=== PATIENT | male | born 1945 | race Caucasian/White ===

== ENCOUNTER 2017-07-04 12:45 | Inpatient (IN) ==
[2017-07-04] MEDS ORDERED: 0.9 % Sodium Chloride 1,000 ML IVC ONE (14:17)
[2017-07-04] MEDS ORDERED: *HR* LORazepam 2 MG/ML VIAL IVP ONE ×2 (14:17→16:18)
[2017-07-04 14:36] LABS: Basophils # 0.1 K/mcL (0.0-0.2); Basophils % 0.6 %; Eosinophils # 0.1 K/mcL (0.0-0.6); Eosinophils % 0.6 %; Hematocrit 39.1 % (37.5-50.1); Lymphocytes % 10.3 %; Mean Corpuscular HGB Conc 33.2 g/dL (31.6-35.5); Mean Corpuscular Hemoglobin 27.9 pg (28.0-33.3); Mean Corpuscular Volume 83.9 fL (83.0-100.0); Mean Platelet Volume 9.2 fL (9.4-12.4); Monocytes # 0.6 K/mcL (0.0-1.3); Monocytes % 6.6 %; Neutrophils # 7.5 K/mcL (1.6-8.9); Platelet Count 250 K/mcL (140-400); Red Blood Count 4.66 M/mcL (4.19-5.50); Red Cell Distribution Width 12.8 % (11.5-14.5); Segmented Neutrophils % 80.9 %
[2017-07-04 14:49] LABS: Calcium 9.9 mg/dL (8.6-10.8)
[2017-07-04 14:50] LABS: Acetaminophen < 1.0 mcg/mL (10-30); Ethanol < 10 mg/dL (0-10); Salicylate < 5.0 mg/dL (15-30)
[2017-07-04 15:42] LABS: Bilirubin,Urine Negative (Negative); Blood,Urine Moderate (Negative); Clarity,Urine Cloudy (Clear); Color,Urine Yellow (Yellow); Glucose,Urine (UA) >=1000 mg/dL (Normal); Ketones,Urine Negative (Negative); Leukocyte Esterase,Urine Small (Negative); Nitrite,Urine Negative (Negative); Protein,Urine >=300 mg/dL (Neg-Trace); Urobilinogen,Urine Normal (Normal)
[2017-07-04 15:43] LABS: Bacteria,Urine Many per hpf (None-Few); Hyaline Casts,Urine None Seen per lpf (None-Few); RBC,Urine 15-30 per hpf (0-3); Squamous Epithelial Cell,Urine Moderate per lpf (None-Few); WBC,Urine TNTC per hpf (0-3)
[2017-07-04 15:48] LABS: Amphetamine Screen,Urine Negative ng/mL (Cutoff=1000); Barbiturate Screen,Urine Negative ng/mL (Cutoff=200); Benzodiazepines Screen,Urine Negative ng/mL (Cutoff=200); Cannabinoid Screen,Urine Negative ng/mL (Cutoff = 50); Cocaine Screen,Urine Negative ng/mL (Cutoff= 300); Opiate Screen,Urine Negative ng/mL (Cutoff=300); Phencyclidine Screen,Urine Negative ng/mL (Cutoff=25)
--- NOTE | 2017-07-04 17:15 | Emergency Department Note ---
Disposition Clinical Impression: Delirium Hypertension Qualifiers: Hypertension type: essential hypertension Qualified Code(s): I10 - Essential ( primary) hypertension Acute on chronic kidney failure Qualifiers: Acute renal failure type: unspecified Chronic kidney disease stage: unspecified stage Qualified Code(s): N17.9 - Acute kidney failure, unspecified Disposition: Admitted As Inpatient Altered Mental Status HPI - General Chief Complaint: ED Altered Mental Status Stated Complaint: AMS Time Seen by Provider: 07/04/17 13:00 Source: patient, family Limitations: no limitations Vital Signs Reviewed: Yes - History of Present Illness HPI Narrative: Patient is a 71-year-old male past medical history of schizophrenia and diabetes presented to the ED today due to the daughter's concern for worsening dementia. Patient states that there is nothing wrong with him and his healthy. Patient's daughter states that when she picked him up, she was wearing the same clothes for the last 6 months. His house is filled with black mold. She states that he is not taking care of himself and he is not eating. She has had to clean out maggots and that the food that he has still in his house is from 20 years ago when his . She has been trying to bring him into the hospital for weeks. [employer] and the agronomy supervisor involved and Adult Protective Services. She says that he has lost 100 pounds in the last 6-8 months. She is afraid that he is going to kill someone and he does own guns as he has become more paranoid. Patient's neighbors have been calling her and voicing their concern and says that he is falling and using 2 canes. The only medication he takes is aspirin. When the patient is asked questions, he becomes highly agitated and says that I have asked him that same question 10 times. He knows where he is at but does not know the year quickly states that he was joking when he gets an answer wrong. When asked about the ulcer on his foot patient states that he has had that for years. - Related Data Home Medications Medication Instructions Recorded Confirmed No Known Home Drugs 07/04/17 07/04/17 Allergies Allergy/AdvReac Type Severity Reaction Status Date / Time No Known Allergies Allergy Verified 07/04/17 12:54 Review of Systems: ROS: constitutional: admits to falls, Denies fever, chills, weakness, dizziness HEENT: denies Headaches, changes in vision Resp: denies shortness of breath, coughing CV: Denies chest pain, lower extremity edema GI: Denies nausea, vomiting, diarrhea, constipation, hematochezia, abdominal pain Skin: Denies rashes, new lesions All systems ED: reviewed and negative except as stated. Review of Systems: As Per HPI Past Medical History - Past Medical History Medical history: Reports: diabetes, hyperlipidemia, hypertension - Social History Smoking Status: Current every day smoker Alcohol use: Reports: none Drug use: Reports: none Physical Exam Constitutional: Alert, highly aggitated, diffuse muscle atrophy Head: Normocephalic, atraumatic, normal contour and symmetric, no masses, lesions or scars Heart: Normal, regular rate and rhythm, no murmurs EENT:PERRL, EOMI but R eye is slighlty deviated inferior and lateral,poor dentition and dry mucous membranes Lungs: crackles bilaterally, Clear to auscultation, no wheezes, rales, or rhonchi Abdomen: increase brown pigmentation in patches on abdomen, Soft, nondistended, nontender, and no masses palpable, bowel sounds present and normal, no guarding or rigidity. Extremities: onychomycosis, ulcer on R foot lateral near base of first digit subcutaneous tissue visualized, No clubbing, cyanosis, or edema, radial pulse +2 /4, capillary refill <2sec. Skin: scaley and flakie skin diffusely, Skin warm and dry, no lesions, no rashes , no jaundice Neurologic: Cranial nerves II through XII intact, no focal deficits, strength within normal limits in all extremities and no decrease range of motion Psych: Cooperative with exam, good eye contact, cognitive function intact, judgment good insight good, speech clear, thought process logical, and goal directed - General Limitations: no limitations General appearance: alert, in no apparent distress Course Course Narrative: Vitals showed a blood pressure of 225/105. Ativan and hydralazine was given and blood pressure decreased to 197/110. Labs showed hyperkalemia, acute kidney failure, hyperglycemia. 10 units of insulin and 15mg of Kayexalate given to decrease potassium. UA showed high levels of protein and blood and a possible UTI but patient does not have complaints of dysuria or hematuria. Patient's EKG showed sinus tachycardia on arrival. Patient's ulcer on foot was x-rayed which showed no osteomyelitis but ESR was elevated at greater than 130. Patient was having intermittent delirium. Hospitalist Dr. Hopkins called and informed about patient and accepted admission to the medical floor for delirium work up. Vital Signs Temperature 98.7 F 07/04/17 12:47 Pulse Rate 124 07/04/17 12:47 Respiratory Rate 18 07/04/17 12:47 Blood Pressure 183/87 07/04/17 12:47 O2 Sat by Pulse Oximetry 99 07/04/17 12:47 Temperature 97.6 F 07/04/17 19:19 Pulse Rate 104 07/04/17 19:19 Respiratory Rate 16 07/04/17 19:19 Blood Pressure 162/75 07/04/17 19:19 O2 Sat by Pulse Oximetry 98 07/04/17 19:19 Oxygen Delivery Oxygen Delivery Room Air Altered Mental Status - Lab Data Lab results reviewed: Yes I reviewed the patient's lab results. Lab results narrative: All Lab Results (24 Hours) 07/04/17 07/04/17 07/04/17 Range/Units 14:25 14:25 14:25 WBC 9.3 (4.3-11.1) K/mcL RBC 4.66 (4.19-5.50) M/mcL Hgb 13.0 (12.9-16.9) g/dL Hct 39.1 (37.5-50.1) % MCV 83.9 (83.0-100.0) fL MCH 27.9 L (28.0-33.3) pg MCHC 33.2 (31.6-35.5) g/dL RDW 12.8 (11.5-14.5) % Plt Count 250 (140-400) K/mcL MPV 9.2 L (9.4-12.4) fL Immature Gran % 1.0 (0-4) % Seg Neutrophils % 80.9 % Lymphocytes % 10.3 % Monocytes % 6.6 % Eosinophils % 0.6 % Basophils % 0.6 % Neutrophils # 7.5 (1.6-8.9) K/mcL Lymphocytes # 1.0 (0.6-4.6) K/mcL Monocytes # 0.6 (0.0-1.3) K/mcL Eosinophils # 0.1 (0.0-0.6) K/mcL Basophils # 0.1 (0.0-0.2) K/mcL ESR >= 130 H (0-10) mm/hr Sodium 135 L (136-145) mEq/L Potassium 6.0 H (3.5-4.5) mEq/L Chloride 100 (98-109) mEq/L Carbon Dioxide 25 (19-29) mEq/L BUN 36 H (8-26) mg/dL Creatinine 1.42 H (0.72-1.25) mg/dL Est GFR ( Amer) 60 (> 60) Est GFR (Non-Af Amer) 49 L (> 60) BUN/Creatinine Ratio 25 (6-26) Glucose 486 H (70-99) mg/dL Calculated Osmolality 310 H (280-300) Calcium 9.9 (8.6-10.8) mg/dL Ammonia (18-72) mcmol/L C-Reactive Protein 9 H (Less than 5) mg/L Urine Color (Yellow) Urine Clarity (Clear) Urine pH (5.0-8.0) pH Units Ur Specific [place] (1.010-1.025) Urine Protein (Neg-Trace) mg/dL Urine Glucose (UA) (Normal) mg/dL Urine Ketones (Negative) mg/dL Urine Blood (Negative) Urine Nitrite (Negative) Urine Bilirubin (Negative) Urine Urobilinogen (Normal) mg/dL Ur Leukocyte Esterase (Negative) Urine Microscopic RBC (0-3) per hpf Urine Microscopic WBC (0-3) per hpf Ur Squamous Epith Cells (None-Few) per lpf Urine Bacteria (None-Few) per hpf Hyaline Casts (None-Few) per lpf Ur Culture Indicated? (NO) Salicylates (15-30) mg/dL Urine Opiates Screen (Zmqvzc=460) ng/mL Acetaminophen (10-30) mcg/mL Ur Barbiturates Screen (Xkpmbk=098) ng/mL Ur Phencyclidine Scrn (Cutoff=25) ng/mL Ur Amphetamines Screen (Neatei=8904) ng/mL U Benzodiazepines Scrn (Odmnhr=199) ng/mL Urine Cocaine Screen (Cutoff= 300) ng/mL U Marijuana (THC) Screen (Cutoff = 50) ng/mL Ethyl Alcohol (0-10) mg/dL 08/25/17 08/25/17 08/25/17 Range/Units 14:25 15:11 15:30 WBC (4.3-11.1) K/mcL RBC (4.19-5.50) M/mcL Hgb (12.9-16.9) g/dL Hct (37.5-50.1) % MCV (83.0-100.0) fL MCH (28.0-33.3) pg MCHC (31.6-35.5) g/dL RDW (11.5-14.5) % Plt Count (140-400) K/mcL MPV (9.4-12.4) fL Immature Gran % (0-4) % Seg Neutrophils % % Lymphocytes % % Monocytes % % Eosinophils % % Basophils % % Neutrophils # (1.6-8.9) K/mcL Lymphocytes # (0.6-4.6) K/mcL Monocytes # (0.0-1.3) K/mcL Eosinophils # (0.0-0.6) K/mcL Basophils # (0.0-0.2) K/mcL ESR (0-10) mm/hr Sodium (136-145) mEq/L Potassium (3.5-4.5) mEq/L Chloride (98-109) mEq/L Carbon Dioxide (19-29) mEq/L BUN (8-26) mg/dL Creatinine (0.72-1.25) mg/dL Est GFR ( Amer) (> 60) Est GFR (Non-Af Amer) (> 60) BUN/Creatinine Ratio (6-26) Glucose (70-99) mg/dL Calculated Osmolality (280-300) Calcium (8.6-10.8) mg/dL Ammonia 17 L (18-72) mcmol/L C-Reactive Protein (Less than 5) mg/L Urine Color Yellow (Yellow) Urine Clarity Cloudy A (Clear) Urine pH 6.0 (5.0-8.0) pH Units Ur Specific [place] 1.020 (1.010-1.025) Urine Protein >=300 H (Neg-Trace) mg/dL Urine Glucose (UA) >=1000 H (Normal) mg/dL Urine Ketones Negative (Negative) mg/dL Urine Blood Moderate H (Negative) Urine Nitrite Negative (Negative) Urine Bilirubin Negative (Negative) Urine Urobilinogen Normal (Normal) mg/dL Ur Leukocyte Esterase Small H (Negative) Urine Microscopic RBC 15-30 H (0-3) per hpf Urine Microscopic WBC TNTC H (0-3) per hpf Ur Squamous Epith Cells Moderate H (None-Few) per lpf Urine Bacteria Many H (None-Few) per hpf Hyaline Casts None Seen (None-Few) per lpf Ur Culture Indicated? YES A (NO) Salicylates < 5.0 L (15-30) mg/dL Urine Opiates Screen (Vyyruf=907) ng/mL Acetaminophen < 1.0 L (10-30) mcg/mL Ur Barbiturates Screen (Myittb=663) ng/mL Ur Phencyclidine Scrn (Cutoff=25) ng/mL Ur Amphetamines Screen (Rqdizb=1795) ng/mL U Benzodiazepines Scrn (Dtzhbv=616) ng/mL Urine Cocaine Screen (Cutoff= 300) ng/mL U Marijuana (THC) Screen (Cutoff = 50) ng/mL Ethyl Alcohol < 10 (0-10) mg/dL 07/04/17 Range/Units 15:30 WBC (4.3-11.1) K/mcL RBC (4.19-5.50) M/mcL Hgb (12.9-16.9) g/dL Hct (37.5-50.1) % MCV (83.0-100.0) fL MCH (28.0-33.3) pg MCHC (31.6-35.5) g/dL RDW (11.5-14.5) % Plt Count (140-400) K/mcL MPV (9.4-12.4) fL Immature Gran % (0-4) % Seg Neutrophils % % Lymphocytes % % Monocytes % % Eosinophils % % Basophils % % Neutrophils # (1.6-8.9) K/mcL Lymphocytes # (0.6-4.6) K/mcL Monocytes # (0.0-1.3) K/mcL Eosinophils # (0.0-0.6) K/mcL Basophils # (0.0-0.2) K/mcL ESR (0-10) mm/hr Sodium (136-145) mEq/L Potassium (3.5-4.5) mEq/L Chloride (98-109) mEq/L Carbon Dioxide (19-29) mEq/L BUN (8-26) mg/dL Creatinine (0.72-1.25) mg/dL Est GFR ( Amer) (> 60) Est GFR (Non-Af Amer) (> 60) BUN/Creatinine Ratio (6-26) Glucose (70-99) mg/dL Calculated Osmolality (280-300) Calcium (8.6-10.8) mg/dL Ammonia (18-72) mcmol/L C-Reactive Protein (Less than 5) mg/L Urine Color (Yellow) Urine Clarity (Clear) Urine pH (5.0-8.0) pH Units Ur Specific [place] (1.010-1.025) Urine Protein (Neg-Trace) mg/dL Urine Glucose (UA) (Normal) mg/dL Urine Ketones (Negative) mg/dL Urine Blood (Negative) Urine Nitrite (Negative) Urine Bilirubin (Negative) Urine Urobilinogen (Normal) mg/dL Ur Leukocyte Esterase (Negative) Urine Microscopic RBC (0-3) per hpf Urine Microscopic WBC (0-3) per hpf Ur Squamous Epith Cells (None-Few) per lpf Urine Bacteria (None-Few) per hpf Hyaline Casts (None-Few) per lpf Ur Culture Indicated? (NO) Salicylates (15-30) mg/dL Urine Opiates Screen Negative (Aoenhg=153) ng/mL Acetaminophen (10-30) mcg/mL Ur Barbiturates Screen Negative (Lmjwxu=488) ng/mL Ur Phencyclidine Scrn Negative (Cutoff=25) ng/mL Ur Amphetamines Screen Negative (Snxspt=0881) ng/mL U Benzodiazepines Scrn Negative (Jubtil=121) ng/mL Urine Cocaine Screen Negative (Cutoff= 300) ng/mL U Marijuana (THC) Screen Negative (Cutoff = 50) ng/mL Ethyl Alcohol (0-10) mg/dL Result diagrams: 07/04/17 14:25 07/04/17 14:25 Lab Results 07/04/17 07/04/17 07/04/17 Range/Units 14:25 14:25 14:25 WBC 9.3 (4.3-11.1) K/mcL RBC 4.66 (4.19-5.50) M/mcL Hgb 13.0 (12.9-16.9) g/dL Hct 39.1 (37.5-50.1) % MCV 83.9 (83.0-100.0) fL MCH 27.9 L (28.0-33.3) pg MCHC 33.2 (31.6-35.5) g/dL RDW 12.8 (11.5-14.5) % Plt Count 250 (140-400) K/mcL MPV 9.2 L (9.4-12.4) fL Immature Gran % 1.0 (0-4) % Seg Neutrophils % 80.9 % Lymphocytes % 10.3 % Monocytes % 6.6 % Eosinophils % 0.6 % Basophils % 0.6 % Neutrophils # 7.5 (1.6-8.9) K/mcL Lymphocytes # 1.0 (0.6-4.6) K/mcL Monocytes # 0.6 (0.0-1.3) K/mcL Eosinophils # 0.1 (0.0-0.6) K/mcL Basophils # 0.1 (0.0-0.2) K/mcL ESR >= 130 H (0-10) mm/hr Sodium 135 L (136-145) mEq/L Potassium 6.0 H (3.5-4.5) mEq/L Chloride 100 (98-109) mEq/L Carbon Dioxide 25 (19-29) mEq/L BUN 36 H (8-26) mg/dL Creatinine 1.42 H (0.72-1.25) mg/dL Est GFR ( Amer) 60 (> 60) Est GFR (Non-Af Amer) 49 L (> 60) BUN/Creatinine Ratio 25 (6-26) Glucose 486 H (70-99) mg/dL Calculated Osmolality 310 H (280-300) Calcium 9.9 (8.6-10.8) mg/dL Ammonia (18-72) mcmol/L C-Reactive Protein 9 H (Less than 5) mg/L Urine Color (Yellow) Urine Clarity (Clear) Urine pH (5.0-8.0) pH Units Ur Specific [place] (1.010-1.025) Urine Protein (Neg-Trace) mg/dL Urine Glucose (UA) (Normal) mg/dL Urine Ketones (Negative) mg/dL Urine Blood (Negative) Urine Nitrite (Negative) Urine Bilirubin (Negative) Urine Urobilinogen (Normal) mg/dL Ur Leukocyte Esterase (Negative) Urine Microscopic RBC (0-3) per hpf Urine Microscopic WBC (0-3) per hpf Ur Squamous Epith Cells (None-Few) per lpf Urine Bacteria (None-Few) per hpf Hyaline Casts (None-Few) per lpf Ur Culture Indicated? (NO) Salicylates (15-30) mg/dL Urine Opiates Screen (Jgangq=192) ng/mL Acetaminophen (10-30) mcg/mL Ur Barbiturates Screen (Rwvfsl=478) ng/mL Ur Phencyclidine Scrn (Cutoff=25) ng/mL Ur Amphetamines Screen (Qwakut=6622) ng/mL U Benzodiazepines Scrn (Reuyyi=211) ng/mL Urine Cocaine Screen (Cutoff= 300) ng/mL U Marijuana (THC) Screen (Cutoff = 50) ng/mL Ethyl Alcohol (0-10) mg/dL 07/04/17 07/04/17 07/04/17 Range/Units 14:25 15:11 15:30 WBC (4.3-11.1) K/mcL RBC (4.19-5.50) M/mcL Hgb (12.9-16.9) g/dL Hct (37.5-50.1) % MCV (83.0-100.0) fL MCH (28.0-33.3) pg MCHC (31.6-35.5) g/dL RDW (11.5-14.5) % Plt Count (140-400) K/mcL MPV (9.4-12.4) fL Immature Gran % (0-4) % Seg Neutrophils % % Lymphocytes % % Monocytes % % Eosinophils % % Basophils % % Neutrophils # (1.6-8.9) K/mcL Lymphocytes # (0.6-4.6) K/mcL Monocytes # (0.0-1.3) K/mcL Eosinophils # (0.0-0.6) K/mcL Basophils # (0.0-0.2) K/mcL ESR (0-10) mm/hr Sodium (136-145) mEq/L Potassium (3.5-4.5) mEq/L Chloride (98-109) mEq/L Carbon Dioxide (19-29) mEq/L BUN (8-26) mg/dL Creatinine (0.72-1.25) mg/dL Est GFR ( Amer) (> 60) Est GFR (Non-Af Amer) (> 60) BUN/Creatinine Ratio (6-26) Glucose (70-99) mg/dL Calculated Osmolality (280-300) Calcium (8.6-10.8) mg/dL Ammonia 17 L (18-72) mcmol/L C-Reactive Protein (Less than 5) mg/L Urine Color Yellow (Yellow) Urine Clarity Cloudy A (Clear) Urine pH 6.0 (5.0-8.0) pH Units Ur Specific [place] 1.020 (1.010-1.025) Urine Protein >=300 H (Neg-Trace) mg/dL Urine Glucose (UA) >=1000 H (Normal) mg/dL Urine Ketones Negative (Negative) mg/dL Urine Blood Moderate H (Negative) Urine Nitrite Negative (Negative) Urine Bilirubin Negative (Negative) Urine Urobilinogen Normal (Normal) mg/dL Ur Leukocyte Esterase Small H (Negative) Urine Microscopic RBC 15-30 H (0-3) per hpf Urine Microscopic WBC TNTC H (0-3) per hpf Ur Squamous Epith Cells Moderate H (None-Few) per lpf Urine Bacteria Many H (None-Few) per hpf Hyaline Casts None Seen (None-Few) per lpf Ur Culture Indicated? YES A (NO) Salicylates < 5.0 L (15-30) mg/dL Urine Opiates Screen (Motblk=865) ng/mL Acetaminophen < 1.0 L (10-30) mcg/mL Ur Barbiturates Screen (Pruubv=720) ng/mL Ur Phencyclidine Scrn (Cutoff=25) ng/mL Ur Amphetamines Screen (Scdpnu=7885) ng/mL U Benzodiazepines Scrn (Lfgkpt=657) ng/mL Urine Cocaine Screen (Cutoff= 300) ng/mL U Marijuana (THC) Screen (Cutoff = 50) ng/mL Ethyl Alcohol < 10 (0-10) mg/dL 07/04/17 Range/Units 15:30 WBC (4.3-11.1) K/mcL RBC (4.19-5.50) M/mcL Hgb (12.9-16.9) g/dL Hct (37.5-50.1) % MCV (83.0-100.0) fL MCH (28.0-33.3) pg MCHC (31.6-35.5) g/dL RDW (11.5-14.5) % Plt Count (140-400) K/mcL MPV (9.4-12.4) fL Immature Gran % (0-4) % Seg Neutrophils % % Lymphocytes % % Monocytes % % Eosinophils % % Basophils % % Neutrophils # (1.6-8.9) K/mcL Lymphocytes # (0.6-4.6) K/mcL Monocytes # (0.0-1.3) K/mcL Eosinophils # (0.0-0.6) K/mcL Basophils # (0.0-0.2) K/mcL ESR (0-10) mm/hr Sodium (136-145) mEq/L Potassium (3.5-4.5) mEq/L Chloride (98-109) mEq/L Carbon Dioxide (19-29) mEq/L BUN (8-26) mg/dL Creatinine (0.72-1.25) mg/dL Est GFR ( Amer) (> 60) Est GFR (Non-Af Amer) (> 60) BUN/Creatinine Ratio (6-26) Glucose (70-99) mg/dL Calculated Osmolality (280-300) Calcium (8.6-10.8) mg/dL Ammonia (18-72) mcmol/L C-Reactive Protein (Less than 5) mg/L Urine Color (Yellow) Urine Clarity (Clear) Urine pH (5.0-8.0) pH Units Ur Specific [place] (1.010-1.025) Urine Protein (Neg-Trace) mg/dL Urine Glucose (UA) (Normal) mg/dL Urine Ketones (Negative) mg/dL Urine Blood (Negative) Urine Nitrite (Negative) Urine Bilirubin (Negative) Urine Urobilinogen (Normal) mg/dL Ur Leukocyte Esterase (Negative) Urine Microscopic RBC (0-3) per hpf Urine Microscopic WBC (0-3) per hpf Ur Squamous Epith Cells (None-Few) per lpf Urine Bacteria (None-Few) per hpf Hyaline Casts (None-Few) per lpf Ur Culture Indicated? (NO) Salicylates (15-30) mg/dL Urine Opiates Screen Negative (Cwnkat=317) ng/mL Acetaminophen (10-30) mcg/mL Ur Barbiturates Screen Negative (Ylfnop=740) ng/mL Ur Phencyclidine Scrn Negative (Cutoff=25) ng/mL Ur Amphetamines Screen Negative (Ojmyzd=8280) ng/mL U Benzodiazepines Scrn Negative (Kstfia=172) ng/mL Urine Cocaine Screen Negative (Cutoff= 300) ng/mL U Marijuana (THC) Screen Negative (Cutoff = 50) ng/mL Ethyl Alcohol (0-10) mg/dL - Radiology Data Radiology results reviewed: Yes I reviewed the patient's radiology results. Foot X-Ray 07/04/17 14:20 IMPRESSION: No evidence of osteomyelitis. D/ / Brown Murdock MD / Brown Murdock MD Interpreting Provider: Brown Murdock MD Chest X-Ray 07/04/17 14:42 IMPRESSION: No acute process. D/ / Rustam Ye MD / Rustam Ye MD Interpreting Provider: Rustam Ye MD - EKG Data EKG attestation: Yes I reviewed and interpreted this EKG. EKG shows normal: sinus rhythm Rate: tachycardia Rhythm: NSR [place]/QRS: normal When compared to previous EKG there are: changes noted (increased R wave in leads V2-V4) Interpretation: no acute changes Attestation Statement - Attestation Attestation: I, Deep Glover DO, examined this patient [id number] and my medical decision-making was reviewed withDr. Jackson, Resident Physician. I agree with the documented findings, disposition and treatment plan as described except to the extent set forth below. Please see my progress notes for details. 71-year-old male presents emergency room for evaluation of delirium, failure to thrive, poor generalized care. Daughter brought him in today for evaluation against his request. Patient initially was alert and oriented answering questions appropriately. He is argumentative and combative and evasive during conversation. There was concern for initial dementia or delirium secondary to evasive answer questions when asked specific timeframes and issues. Daughter is minutes of needing to go to the doctor for evaluation for several months to over a year. Patient has a history of alcohol abuse but otherwise denied any other medical condition secondary to not going to the doctor. The vital signs on presentation showed tachycardia borderline hypotension as well as agitation. Patient eventually accommodated to having labs chest x-ray EKG urinalysis urine drug screen completed. Patient is concerning for multiple medical issues noted secondary to the physical exam and poor hygiene. He is very thin and frail. Fluids to be provided secondary to tachycardia as well as a single dose of Ativan to be given here initially most likely treating the agitation as well as the slightly manic presentation with pressured speech and conversation. After the medication was given patient was tolerant of her evaluation treatment. Fundi have hyperkalemia and increased kidney function dehydration along with intermittent delirium and agitation. Patient is concerning for her poorly controlled diabetes and hypertension causing endorgan damage secondary to the hypertension. Patient was given a single dose of hydralazine here and his blood pressure responded appropriately. Patient was admitted for evaluation of the hypertension, kidney function, hyperkalemia. Calcium gluconate insulin and Kayexalate were given in the emergency room. The insulin was given without any dextrose secondary to his glucose being greater than 400. Repeat Accu-Chek was provided. Patient was otherwise stable and transported the fluoroscopy stable vital signs. See detailed documentation of physical exam and treatment course and the resident physician's note
[2017-07-04] MEDS ORDERED: Insulin Human Regular 10 UNIT in 0.9 % Sodium Chloride 10 ML IV ONE (18:07)
[2017-07-04] MEDS ORDERED: Naloxone 0.4 MG/ML INJ IVP PRN (19:55)
[2017-07-04] MEDS ORDERED: Calcium Chloride 1,000 MG in 0.9 % Sodium Chloride 100 ML IVPB ONE (19:57)
[2017-07-04] MEDS ORDERED: D5% in Water 1,000 ML IVC PRN (19:59)
[2017-07-04] MEDS ORDERED: *HR* Dextrose 50 % in Water (Syg) 50 ML SYRINGE IVP PRN (19:59)
[2017-07-04] MEDS ORDERED: Dextrose Gel 15 GM PO PRN ×2 (19:59)
--- NOTE | 2017-07-04 20:01 | Internal Med History&Physical ---
Date of Encounter: 07/04/17 Time of Encounter: 20:01 Assessment and Plan (1) Failure to thrive in adult Current visit: Yes Status: Acute consult social work, psych eval, correct hyperglycemia, UTI, OLGA (2) UTI (urinary tract infection) Current visit: Yes Status: Acute pend urine cx, empiric rocephin IV Qualifiers: Qualified Code(s): N39.0 - Urinary tract infection, site not specified (3) DMII (diabetes mellitus, type 2) Current visit: Yes Status: Acute check a1c, ISS for now Qualifiers: Diabetes mellitus complication status: with hyperglycemia Diabetes mellitus terminal gauger insulin use: without intermediate use Qualified Code(s): E11.65 - Type 2 diabetes mellitus with hyperglycemia (4) Schizophrenia Current visit: Yes Status: Acute psych to eval and optimize, sitter for now given reported hx of threats and instability Qualifiers: Schizophrenia type: disorganized schizophrenia Qualified Code(s): F20.1 - Disorganized schizophrenia (5) Hypertension Current visit: Yes Status: Acute start norvasc Qualifiers: Hypertension type: essential hypertension Qualified Code(s): I10 - Essential (primary) hypertension Internal Medicine - H&P: HPI Chief complaint: FTT, unable to self care History of present illness: Mr. Garnt is a 71 year old male with hx of schizoprenia, dementia, DMII who has not gone to the doctor in 3 years who presents on urging of dtr to the hospital for evaluation of worsening FTT, unable to self care. Found UTI, hyperglycemia, OLGA He lives alone at home and is reported to be in a poor living condition with black mound with inability to self care associated with 100 lbs ? in the last 8 months. Complicating this, there is a schizoprenic/dementia component to it where he has told his family that he would kill them if they moved him - however , patient appears to be pleasant at bedside. On review, he reports LUTs symptoms with frequency suggesting symptomatic UTI in additional to OLGA, hyponatremia and a glucose of 486 in the ED. Dtr Margot @ [phone] EKG reviewed by self with rate 118, sinus tachy Past Med Surg Social Fam HX - Past Medical History Medical history: diabetes, hyperlipidemia, hypertension - Past Surgical History Surgical History: no surgical history - Social History Smoking Status: Current every day smoker Alcohol use: none Drug use: none - Additional Family History Additional family history: HTN Internal Medicine - H&P: Meds No Known Home Drugs 07/04/17 [History] 3 Allergy/AdvReac Type Severity Reaction Status Date / Time No Known Allergies Allergy Verified 07/04/17 12:54 All Systems PM: A 10-system review of systems was performed and is negative for pertinent findings except as documented above in the HPI. Review of systems: ROS 14 point review of systems reviewed as best as possible given presentation. Pertinent positive or negative as per HPI or otherwise reviewed as negative - Constitutional Vitals: Temp Pulse Resp BP Pulse Ox 97.6 F 104 16 162/75 98 07/04/17 19:19 07/04/17 19:19 07/04/17 19:19 07/04/17 19:19 07/04/17 19:19 Exam: General - AAO x 3 Psych - Appropriate affect/speech. No agitation Eyes - YI. Eye lids intact. No scleral icterus Neuro - No gross peripheral or central neuro deficits Heart - Sinus. RRR. S1 and S2 present. No added HS/murmurs appreciated. No elevated JVD appreciated. No calf swellings/erythema Lung - Adequate air entry b/l, No crackes/wheezes appreciated GI - Soft, non-tender. No hepatosplenomegaly/ascites. BS+ - No CVA/suprapubic tenderness or palpable bladder distension Skin - ecchymosis on extremities, skin tears on forearm b/l, diabetic foot ulcer on right foot Internal Med - H&P Results - Labs CBC & Chem 7: 07/04/17 14:25 07/04/17 14:25
[2017-07-04] MEDS: amLODIPine 5 MG TABLET PO SCH (20:37)
[2017-07-04] MEDS: 0.9 % Sodium Chloride 1,000 ML IVC SCH (20:39)
[2017-07-04] MEDS ORDERED: Insulin LISPRO 300 UNITS/3 ML VIAL SQ SCH (21:00)
[2017-07-04] MEDS: Nicotine 21 MG PATCH.TD24 TD SCH (21:01)
[2017-07-05 05:21] LABS: Mean Corpuscular HGB Conc 33.9 g/dL (31.6-35.5); Mean Corpuscular Hemoglobin 28.1 pg (28.0-33.3); Mean Corpuscular Volume 82.9 fL (83.0-100.0); Mean Platelet Volume 9.9 fL (9.4-12.4); Platelet Count 190 K/mcL (140-400); Red Blood Count 3.74 M/mcL (4.19-5.50); Red Cell Distribution Width 12.8 % (11.5-14.5)
[2017-07-05 05:28] LABS: Hemoglobin 10.5 g/dL (12.9-16.9)
[2017-07-05 05:33] LABS: Alanine Aminotransferase 22 Units/L (0-55); Albumin 2.2 g/dL (3.5-5.0); Albumin/Globulin Ratio 0.6 (1.1-2.2); Alkaline Phosphatase 155 Units/L (38-126); Aspartate Amino Transferase 42 Units/L (5-34); BUN/Creatinine Ratio 24 (6-26); Blood Urea Nitrogen 30 mg/dL (8-26); Calcium 8.9 mg/dL (8.6-10.8); Carbon Dioxide 28 mEq/L (19-29); Chloride 104 mEq/L (98-109); Globulin 3.4 g/dL (2.4-3.5); Glucose 393 mg/dL (70-99); Magnesium 1.5 mg/dL (1.6-2.6); Osmolality,Calculated 309 (280-300); Potassium 4.6 mEq/L (3.5-4.5); Sodium 138 mEq/L (136-145); Total Protein 5.6 g/dL (6.0-8.3); eGFR For African Americans > 60 (> 60); eGFR For Non-African Americans 57 (> 60)
[2017-07-05 05:35] LABS: Hemoglobin A1C 13.2 %
[2017-07-05 05:48] LABS: Bilirubin,Total < 0.3 mg/dL (0.2-1.2)
[2017-07-05 05:57] LABS: Thyroid Stimulating Hormone 0.966 mcIU/mL (0.350-4.840)
[2017-07-05] MEDS: *HR* Heparin 5,000 UNIT/ML VIAL SQ SCH ×2 (06:12→17:14)
[2017-07-05] MEDS: amLODIPine 5 MG TABLET PO SCH (08:16)
[2017-07-05] MEDS: Insulin LISPRO 300 UNITS/3 ML VIAL SQ SCH ×4 (08:16→17:11)
[2017-07-05] MEDS: Nicotine 21 MG PATCH.TD24 TD SCH (08:17)
[2017-07-05] MEDS ORDERED: Haloperidol Lactate 5 MG/ML VIAL IVP ONE (09:45)
[2017-07-05] MEDS ORDERED: Haloperidol Lactate 5 MG/ML VIAL ONE (09:48)
[2017-07-05] MEDS: 0.9 % Sodium Chloride 1,000 ML IVC SCH ×3 (09:52→20:20)
--- NOTE | 2017-07-05 11:49 | Internal Med Progress Note ---
<Glenis Howard - Last Filed: 07/05/17 11:47> Date of Encounter: 07/05/17 Time of Encounter: 11:47 - Assessment and plan (1) Failure to thrive in adult Current Visit: Yes Status: Acute Assessment and plan: lives in custodial, altered mentation. unlikely patient can care for himself. discussed possible [facility] placement with daughter, who agrees. Plan: awaiting placement consult social media community manager. Haldol PRN for agitation. (2) UTI (urinary tract infection) Current Visit: Yes Status: Acute Assessment and plan: pending urine culture could be contributing to altered mentation/agitation Plan: continue rocephin. Qualifiers: Urinary tract infection type: site unspecified Hematuria presence: with hematuria Qualified Code(s): N39.0 - Urinary tract infection, site not specified; R31.9 - Hematuria, unspecified (3) Elevated serum creatinine Current Visit: Yes Status: Acute Assessment and plan: etiology unclear at this time. unknown baseline,, unknown history of CKD. continue IVF and monitor. (4) DMII (diabetes mellitus, type 2) Current Visit: Yes Status: Acute Assessment and plan: A1C 13.2 needs insulin on discharge, poorly controlled. continue low dose sliding scale for now. Qualifiers: Diabetes mellitus complication status: with hyperglycemia Diabetes mellitus correction insulin use: without correction use Qualified Code(s): E11.65 - Type 2 diabetes mellitus with hyperglycemia (5) Schizophrenia Current Visit: Yes Status: Acute Assessment and plan: hx of mental illness lives in custodial. consult to psych for evaluation Qualifiers: Schizophrenia type: disorganized schizophrenia Qualified Code(s): F20.1 - Disorganized schizophrenia (6) Hypertension Current Visit: Yes Status: Acute Assessment and plan: conitnue to monitor. hold norvasc due to hypotension. continue to monitor. Qualifiers: Hypertension type: essential hypertension Qualified Code(s): I10 - Essential (primary) hypertension (7) DVT prophylaxis Current Visit: Yes Status: Acute Assessment and plan: heparin SQ - Subjective Interval history: 71 male evaluated at bedside. patient denies nausea, vomiting, diarrhea, fever, chills, chest pain, or shortness of breath. he was agitated and angry this morning and was yelling. no other new complaints today. - Constitutional Vitals: Temp Pulse Resp BP Pulse Ox 98.1 F 101 18 98/59 100 07/05/17 10:50 07/05/17 10:50 07/05/17 10:50 07/05/17 10:50 07/05/17 10:50 General appearance: Present: A&O X 3 Exam: anxious, agitated, yelling at staff. - Head Head exam: Present: atraumatic, normocephalic - Neck Neck exam general surgery: Present: supple, trachea midline - Respiratory Respiratory exam: Present: CTAB - Cardiovascular Cardiovascular exam: Present: RRR, +S1, +S2 - GI/Abdominal GI/Abdominal exam: Present: normal bowel sounds, soft. Absent: distended, tenderness - Extremities Exam Extremities exam: Absent: cyanotic, pedal edema Additional comments: toe nails very long and unkept. ulcers present on medial aspect of third toes bilaterally. Internal Medicine: Result - Labs CBC & Chem 7: 07/05/17 03:38 07/05/17 03:38 Labs: Short CBC 07/05/17 Range/Units 03:38 WBC 7.5 (4.3-11.1) K/mcL Hgb 10.5 L D (12.9-16.9) g/dL Hct 31.0 L (37.5-50.1) % Plt Count 190 (140-400) K/mcL BMP 07/05/17 07/05/17 00:00 03:38 Sodium 138 Potassium 4.4 D 4.6 H Chloride 104 Carbon Dioxide 28 BUN 30 H Creatinine 1.26 H Glucose 393 H Calcium 8.9 Liver Function 07/05/17 Range/Units 03:38 Total Bilirubin < 0.3 (0.2-1.2) mg/dL AST 42 H (5-34) Units/L ALT 22 (0-55) Units/L Alkaline Phosphatase 155 H (38-126) Units/L Albumin 2.2 L (3.5-5.0) g/dL - Impressions Impressions Head CT 07/05/17 00:01 IMPRESSION: No acute intracranial abnormality. D/ / Yulissa Segura Cha, MD / Yulissa Segura Cha, MD Interpreting Provider: Yulissa Segura Cha, MD Consult Discharge Plan - Plan Additional Instructions: - contact Adult protective services to evaluate patients home and determine if pt is able to return home - SW to speak with family if they feel he is not able to care for himself they will need to consider guardianship so they can make medical decisions for pt since he is not agreeable. - pt would benefit from a geriatric psych unit placement until APS has completed there workup, roya due to poor self care, malnourishment and until pts UTI has cleared due to pt most likely being non compliant with meds if he was to return home. - if pt is unwilling to go to psychiatric unit primary physician can pink slip patient - continue medical workup Referrals: NONE,PCP [Primary Care Provider] - <Jaya Blanco P - Last Filed: 07/05/17 15:00> Date of Encounter: 07/05/17 - Constitutional Vitals: Temp Pulse Resp BP Pulse Ox 98.1 F 101 18 98/59 100 07/05/17 10:50 07/05/17 10:50 07/05/17 10:50 07/05/17 10:50 07/05/17 10:50 Internal Medicine: Result - Labs CBC & Chem 7: 07/05/17 03:38 07/05/17 03:38 Labs: Short CBC 07/05/17 Range/Units 03:38 WBC 7.5 (4.3-11.1) K/mcL Hgb 10.5 L D (12.9-16.9) g/dL Hct 31.0 L (37.5-50.1) % Plt Count 190 (140-400) K/mcL BMP 07/05/17 07/05/17 00:00 03:38 Sodium 138 Potassium 4.4 D 4.6 H Chloride 104 Carbon Dioxide 28 BUN 30 H Creatinine 1.26 H Glucose 393 H Calcium 8.9 Liver Function 07/05/17 Range/Units 03:38 Total Bilirubin < 0.3 (0.2-1.2) mg/dL AST 42 H (5-34) Units/L ALT 22 (0-55) Units/L Alkaline Phosphatase 155 H (38-126) Units/L Albumin 2.2 L (3.5-5.0) g/dL - Impressions Impressions Head CT 07/05/17 00:01 IMPRESSION: No acute intracranial abnormality. D/ / Yulissa Segura Cha, MD / Yulissa Segura Cha, MD Interpreting Provider: Yulissa Segura Cha, MD - Attending Attestation I examined this patient and my medical decision-making was reviewed with the Resident Physician. I agree with the documented findings, disposition and treatment plan as described except to the extent set forth below. 71/male Admitted with bizarre behavior. Urine culture positive for gram-negative rods. Patient presently on ceftriaxone. Patient has a strong history of for psychiatric disorder. Evaluated by psychiatry this morning. We will follow the recommendations from psychiatry.
[2017-07-05] MEDS ORDERED: Haloperidol Lactate 5 MG/ML VIAL IVP PRN (12:04)
--- NOTE | 2017-07-05 12:06 | Consult Note ---
Date of Encounter: 07/05/17 Time of Encounter: 12:03 History of Present Illness Patient: new to practice Requesting Physician: Jaya Blanco MD Reason for consult: altered mental status, poor self care History of present illness: Mr. Grant is a 71 year old male admitted to [facility] secondary to ultra mental status and poor self-care and below average living conditions. On approach patient was asleep he was easily awoken for evaluation patient was irritable and reports he should not be in the hospital and reports he would like to go home and get his dog. Patient reports he lives alone and reports that he makes his meals and does his daily activities on his own. He reports that he does have family but reports that his family comes over if they need money. 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 Patient has minimal insight into his current living conditions or his current self-care. Patient has minimal insight into needing ongoing antibiotic treatment for his urinary tract infection. Patient is not willing to receive further care. Patient was very tangential and had to be redirected to topic multiple times during evaluation. Patient did not endorse anxiety patient did not endorse depression patient did not endorse manic or hypomanic symptoms patient did not endorse psychotic symptoms patient denied having any falls at home. Her records family is concerned in regards to patient's living conditions due to there being mold and patient having multiple falls. CC: Jaya Blanco MD Past Med Surg Social Fam HX - Past Medical History Medical history: diabetes, hyperlipidemia, hypertension - Past Psychiatric History Psychiatric history: Reports: no psych history Family psychiatric history: No Family History of Suicide: None - Past Surgical History Surgical History: no surgical history - Social History Smoking Status: Current every day smoker Smokeless Tobacco Status: No Alcohol use: none Drug use: none - Family History Mother Living Status: Age at : 88 Cause of : alzeheimer/dementia Hx Family Cancer: Yes (breast) Hx Family Neurologic Disorders: Yes (alzheimer/dementia) Father Living Status: Age at : 30 Cause of : sucide Hx Family Psychosocial Disorders: Yes (sucide) Medications & Allergies No Known Home Drugs 07/04/17 [History] 3 Allergy/AdvReac Type Severity Reaction Status Date / Time No Known Allergies Allergy Verified 07/04/17 12:54 Review of Systems Constitutional: Reports: weight change Neurological: Reports: weakness, memory loss Psychiatric: Reports: memory loss Mental Status Exam Patient orientation: Yes Person, Yes Place Level of alertness: Alert Patient appearance: Disheveled Behavior: agitated Psychomotor activity: Slowed Eye contact: Maintains Eye Contact Mood description: Euthymic/stable Affect description: congruent with mood Speech pattern: Normal rate Speech volume: Normal, Loud Thought process: Intact Attention span: Unable to Focus, Unable to Sustain Attention Memory description: Remote Impaired Patient reliability: Questionable Historian Intelligence estimate: Above [place] Judgment: Poor Insight: Minimal Results - Vital Signs Vital signs: Temp Pulse Resp BP Pulse Ox 98.1 F 101 18 98/59 100 07/05/17 10:50 07/05/17 10:50 07/05/17 10:50 07/05/17 10:50 07/05/17 10:50 - Labs Labs: Laboratory Last Values WBC 7.5 K/mcL (4.3-11.1) 07/05/17 03:38 RBC 3.74 M/mcL (4.19-5.50) L 07/05/17 03:38 Hgb 10.5 g/dL (12.9-16.9) L D 07/05/17 03:38 Hct 31.0 % (37.5-50.1) L 07/05/17 03:38 MCV 82.9 fL (83.0-100.0) L 07/05/17 03:38 MCH 28.1 pg (28.0-33.3) 07/05/17 03:38 MCHC 33.9 g/dL (31.6-35.5) 07/05/17 03:38 RDW 12.8 % (11.5-14.5) 07/05/17 03:38 Plt Count 190 K/mcL (140-400) 07/05/17 03:38 MPV 9.9 fL (9.4-12.4) 07/05/17 03:38 Immature Gran % 1.0 % (0-4) 07/04/17 14:25 Seg Neutrophils % 80.9 % 07/04/17 14:25 Lymphocytes % 10.3 % 07/04/17 14:25 Monocytes % 6.6 % 07/04/17 14:25 Eosinophils % 0.6 % 07/04/17 14:25 Basophils % 0.6 % 07/04/17 14:25 Neutrophils # 7.5 K/mcL (1.6-8.9) 07/04/17 14:25 Lymphocytes # 1.0 K/mcL (0.6-4.6) 07/04/17 14:25 Monocytes # 0.6 K/mcL (0.0-1.3) 07/04/17 14:25 Eosinophils # 0.1 K/mcL (0.0-0.6) 07/04/17 14:25 Basophils # 0.1 K/mcL (0.0-0.2) 07/04/17 14:25 ESR >= 130 mm/hr (0-10) H 07/04/17 14:25 Sodium 138 mEq/L (136-145) 07/05/17 03:38 Potassium 4.6 mEq/L (3.5-4.5) H 07/05/17 03:38 Chloride 104 mEq/L (98-109) 07/05/17 03:38 Carbon Dioxide 28 mEq/L (19-29) 07/05/17 03:38 BUN 30 mg/dL (8-26) H 07/05/17 03:38 Creatinine 1.26 mg/dL (0.72-1.25) H 07/05/17 03:38 Est GFR ( Amer) > 60 (> 60) 07/05/17 03:38 Est GFR (Non-Af Amer) 57 (> 60) L 07/05/17 03:38 BUN/Creatinine Ratio 24 (6-26) 07/05/17 03:38 Glucose 393 mg/dL (70-99) H 07/05/17 03:38 POC Glucose 414 (58-89) H* 07/04/17 19:17 Est Mean Plasma Glucose 332 mg/dl 07/05/17 03:38 Hemoglobin A1c 13.2 % (-5.6) H 07/05/17 03:38 Calculated Osmolality 309 (280-300) H 07/05/17 03:38 Calcium 8.9 mg/dL (8.6-10.8) 07/05/17 03:38 Magnesium 1.5 mg/dL (1.6-2.6) L 07/05/17 03:38 Total Bilirubin < 0.3 mg/dL (0.2-1.2) 07/05/17 03:38 AST 42 Units/L (5-34) H 07/05/17 03:38 ALT 22 Units/L (0-55) 07/05/17 03:38 Alkaline Phosphatase 155 Units/L (38-126) H 07/05/17 03:38 Ammonia 17 mcmol/L (18-72) L 07/04/17 15:11 C-Reactive Protein 9 mg/L (Less than 5) H 07/04/17 14:25 Serum Total Protein 5.6 g/dL (6.0-8.3) L 07/05/17 03:38 Albumin 2.2 g/dL (3.5-5.0) L 07/05/17 03:38 Globulin 3.4 g/dL (2.4-3.5) 07/05/17 03:38 Albumin/Globulin Ratio 0.6 (1.1-2.2) L 07/05/17 03:38 TSH 0.966 mcIU/mL (0.350-4.840) 07/05/17 03:38 Free T4 0.92 ng/dl (0.70-1.48) 07/05/17 03:38 Urine Color Yellow (Yellow) 07/04/17 15:30 Urine Clarity Cloudy (Clear) A 07/04/17 15:30 Urine pH 6.0 pH Units (5.0-8.0) 07/04/17 15:30 Ur Specific [place] 1.020 (1.010-1.025) 07/04/17 15:30 Urine Protein >=300 mg/dL (Neg-Trace) H 07/04/17 15:30 Urine Glucose (UA) >=1000 mg/dL (Normal) H 07/04/17 15:30 Urine Ketones Negative mg/dL (Negative) 07/04/17 15:30 Urine Blood Moderate (Negative) H 07/04/17 15:30 Urine Nitrite Negative (Negative) 07/04/17 15:30 Urine Bilirubin Negative (Negative) 07/04/17 15:30 Urine Urobilinogen Normal mg/dL (Normal) 07/04/17 15:30 Ur Leukocyte Esterase Small (Negative) H 07/04/17 15:30 Urine Microscopic RBC 15-30 per hpf (0-3) H 07/04/17 15:30 Urine Microscopic WBC TNTC per hpf (0-3) H 07/04/17 15:30 Ur Squamous Epith Cells Moderate per lpf (None-Few) H 07/04/17 15:30 Urine Bacteria Many per hpf (None-Few) H 07/04/17 15:30 Hyaline Casts None Seen per lpf (None-Few) 07/04/17 15:30 Ur Culture Indicated? YES (NO) A 07/04/17 15:30 Salicylates < 5.0 mg/dL (15-30) L 07/04/17 14:25 Urine Opiates Screen Negative ng/mL (Rmmweh=409) 07/04/17 15:30 Acetaminophen < 1.0 mcg/mL (10-30) L 07/04/17 14:25 Ur Barbiturates Screen Negative ng/mL (Zlzwrb=543) 07/04/17 15:30 Ur Phencyclidine Scrn Negative ng/mL (Cutoff=25) 07/04/17 15:30 Ur Amphetamines Screen Negative ng/mL (Zbpbnp=4049) 07/04/17 15:30 U Benzodiazepines Scrn Negative ng/mL (Lxqaji=369) 07/04/17 15:30 Urine Cocaine Screen Negative ng/mL (Cutoff= 300) 07/04/17 15:30 U Marijuana (THC) Screen Negative ng/mL (Cutoff = 50) 07/04/17 15:30 Ethyl Alcohol < 10 mg/dL (0-10) 07/04/17 14:25 - Impressions Impressions Head CT 07/05/17 00:01 IMPRESSION: No acute intracranial abnormality. D/ / Yulissa Segura Cha, MD / Yulissa Segura Cha, MD Interpreting Provider: Yulissa Segura Cha, MD Consult Discharge Plan - Plan Additional Instructions: - contact Adult protective services to evaluate patients home and determine if pt is able to return home - SW to speak with family if they feel he is not able to care for himself they will need to consider guardianship so they can make medical decisions for pt since he is not agreeable. - pt would benefit from a geriatric psych unit placement until APS has completed there workup, roya due to poor self care, malnourishment and until pts UTI has cleared due to pt most likely being non compliant with meds if he was to return home. - if pt is unwilling to go to psychiatric unit primary physician can pink slip patient - continue medical workup Referrals: NONE,PCP [Primary Care Provider] -
[2017-07-05] MEDS ORDERED: Insulin LISPRO 300 UNITS/3 ML VIAL SQ SCH (21:00)
[2017-07-06] MEDS: *HR* Heparin 5,000 UNIT/ML VIAL SQ SCH ×2 (05:55→19:35)
[2017-07-06 06:09] LABS: Basophils % 0.7 %; Eosinophils # 0.1 K/mcL (0.0-0.6); Eosinophils % 1.9 %; Hematocrit 27.9 % (37.5-50.1); Hemoglobin 9.6 g/dL (12.9-16.9); Immature Granulocytes % 0.7 % (0-4); Lymphocytes # 0.7 K/mcL (0.6-4.6); Lymphocytes % 12.2 %; Mean Corpuscular HGB Conc 34.4 g/dL (31.6-35.5); Mean Corpuscular Volume 84.3 fL (83.0-100.0); Monocytes # 0.5 K/mcL (0.0-1.3); Monocytes % 8.2 %; Neutrophils # 4.4 K/mcL (1.6-8.9); Platelet Count 138 K/mcL (140-400); Red Blood Count 3.31 M/mcL (4.19-5.50); Red Cell Distribution Width 13.1 % (11.5-14.5); Segmented Neutrophils % 76.3 %
[2017-07-06 06:20] LABS: BUN/Creatinine Ratio 29 (6-26); Blood Urea Nitrogen 34 mg/dL (8-26); Carbon Dioxide 23 mEq/L (19-29); Chloride 106 mEq/L (98-109); Glucose 464 mg/dL (70-99); Osmolality,Calculated 308 (280-300); Potassium 4.1 mEq/L (3.5-4.5); Sodium 135 mEq/L (136-145); eGFR For African Americans > 60 (> 60); eGFR For Non-African Americans > 60 (> 60)
[2017-07-06] MEDS ORDERED: Insulin LISPRO 300 UNITS/3 ML VIAL SQ SCH (08:05)
[2017-07-06] MEDS: Nicotine 21 MG PATCH.TD24 TD SCH (08:39)
[2017-07-06] MEDS: Insulin DETEMIR 100 UNIT/ML X5UNITS SQ SCH ×2 (08:40→08:50)
[2017-07-06] MEDS: Insulin LISPRO 300 UNITS/3 ML VIAL SQ SCH ×5 (08:40→20:35)
--- NOTE | 2017-07-06 08:42 | Internal Med Progress Note ---
<Glenis Howard - Last Filed: 07/06/17 15:59> Date of Encounter: 07/06/17 Time of Encounter: 08:30 - Assessment and plan (1) Failure to thrive in adult Current Visit: Yes Status: Acute Assessment and plan: lives in [facility], altered mentation. unlikely patient can care for himself. discussed possible alf placement with daughter, who agrees. Plan: awaiting placement consult social worker health services. Haldol PRN for agitation. see psych consult note for further details. (2) UTI (urinary tract infection) Current Visit: Yes Status: Acute Assessment and plan: urine culture grew gram negative rods. could be contributing to altered mentation/agitation Plan: continue rocephin. await sensitivities and final culture. Qualifiers: Urinary tract infection type: site unspecified Hematuria presence: with hematuria Qualified Code(s): N39.0 - Urinary tract infection, site not specified; R31.9 - Hematuria, unspecified (3) Elevated serum creatinine Current Visit: Yes Status: Resolved Assessment and plan: resolved. IVF stopped. (4) DMII (diabetes mellitus, type 2) Current Visit: Yes Status: Acute Assessment and plan: A1C 13.2 needs insulin on discharge, poorly controlled. continue low dose sliding scale, basal insulin started. per nurse, patient was eating cookies and other sweets yesterday. he was educated on diabetic diet and sugar control. he expresses agreement and understanding. Qualifiers: Diabetes mellitus complication status: with hyperglycemia Diabetes mellitus exterminator helper insulin use: without exterminator helper use Qualified Code(s): E11.65 - Type 2 diabetes mellitus with hyperglycemia (5) Schizophrenia Current Visit: Yes Status: Acute Assessment and plan: hx of mental illness lives in [facility]. patient was evaluated by psychiatry. plan is to contact APS to evlauate patients home to determine if he can return home. social worker health services on board. if not able to care for himself, may need guardianship, would benefit from geriatric psych unit placement, will need pink slip if non compliant. please see psych consult note for further details. Qualifiers: Schizophrenia type: disorganized schizophrenia Qualified Code(s): F20.1 - Disorganized schizophrenia (6) Hypertension Current Visit: Yes Status: Acute Assessment and plan: conitnue to monitor. stop norvasc, start lisinopril as patient has uncontrolled DM blood pressures well controlled at this time. Qualifiers: Hypertension type: essential hypertension Qualified Code(s): I10 - Essential (primary) hypertension (7) DVT prophylaxis Current Visit: Yes Status: Acute Assessment and plan: heparin SQ - Subjective Interval history: 71 male evaluated at bedside. patient denies nausea, vomiting, diarrhea, fever, chills, chest pain, or shortness of breath. he was very pleasant this morning. he denies any further complaints today. - Constitutional Vitals: Temp Pulse Resp BP Pulse Ox 98.1 F 100 16 121/67 98 07/05/17 19:34 07/05/17 19:34 07/05/17 19:34 07/05/17 19:34 07/05/17 19:34 General appearance: Present: A&O X 3, pleasant, no acute distress, answers questions appropriately - Head Head exam: Present: atraumatic, normocephalic - Neck Neck exam general surgery: Present: supple, trachea midline - Respiratory Respiratory exam: Present: CTAB - Cardiovascular Cardiovascular exam: Present: RRR, +S1, +S2 - GI/Abdominal GI/Abdominal exam: Present: normal bowel sounds, soft. Absent: distended, tenderness - Extremities Exam Extremities exam: Absent: cyanotic, pedal edema Additional comments: ulcers present on third toe bilaterally - Neurological Exam Neurological exam: Present: alert, oriented X3, no focal deficits - Psychiatric Psychiatric exam: Present: normal affect, normal mood Internal Medicine: Result - Labs CBC & Chem 7: 07/06/17 05:24 07/06/17 05:24 Labs: Short CBC 07/06/17 Range/Units 05:24 WBC 5.8 (4.3-11.1) K/mcL Hgb 9.6 L (12.9-16.9) g/dL Hct 27.9 L (37.5-50.1) % Plt Count 138 L (140-400) K/mcL Neutrophils # 4.4 (1.6-8.9) K/mcL BMP 07/06/17 05:24 Sodium 135 L Potassium 4.1 Chloride 106 Carbon Dioxide 23 BUN 34 H Creatinine 1.19 Glucose 464 H Calcium 8.0 L Consult Discharge Plan - Plan Additional Instructions: - contact Adult protective services to evaluate patients home and determine if pt is able to return home - SW to speak with family if they feel he is not able to care for himself they will need to consider guardianship so they can make medical decisions for pt since he is not agreeable. - pt would benefit from a geriatric psych unit placement until APS has completed there workup, roya due to poor self care, malnourishment and until pts UTI has cleared due to pt most likely being non compliant with meds if he was to return home. - if pt is unwilling to go to psychiatric unit primary physician can pink slip patient - continue medical workup Referrals: NONE,PCP [Primary Care Provider] - <Jaya Blanco P - Last Filed: 07/06/17 16:57> Date of Encounter: 07/06/17 - Constitutional Vitals: Temp Pulse Resp BP Pulse Ox 97.5 F L 86 16 125/65 97 07/06/17 15:40 07/06/17 15:40 07/06/17 15:40 07/06/17 15:40 07/06/17 15:40 Internal Medicine: Result - Labs CBC & Chem 7: 07/06/17 05:24 07/06/17 05:24 Labs: Short CBC 07/06/17 Range/Units 05:24 WBC 5.8 (4.3-11.1) K/mcL Hgb 9.6 L (12.9-16.9) g/dL Hct 27.9 L (37.5-50.1) % Plt Count 138 L (140-400) K/mcL Neutrophils # 4.4 (1.6-8.9) K/mcL BMP 07/06/17 05:24 Sodium 135 L Potassium 4.1 Chloride 106 Carbon Dioxide 23 BUN 34 H Creatinine 1.19 Glucose 464 H Calcium 8.0 L - Attending Attestation I examined this patient and my medical decision-making was reviewed with the Resident Physician. I agree with the documented findings, disposition and treatment plan as described except to the extent set forth below. Urine culture is growing 2 different kinds of gram-negative rods. Patient is presently on IV ceftriaxone. We will wait for culture and sensitivity report. I had a long discussion with the patient's son. Updated him regarding urosepsis/treatment plan/recommendations from psychiatric evaluation. Patient's son understood and agreed
[2017-07-06] MEDS ORDERED: Insulin DETEMIR 100 UNIT/ML X5UNITS SQ SCH (21:00)
[2017-07-07 04:39] LABS: Basophils % 0.6 %; Eosinophils # 0.2 K/mcL (0.0-0.6); Eosinophils % 3.2 %; Hemoglobin 9.7 g/dL (12.9-16.9); Immature Granulocytes % 1.8 % (0-4); Lymphocytes % 15.8 %; Mean Corpuscular HGB Conc 32.3 g/dL (31.6-35.5); Mean Corpuscular Hemoglobin 27.6 pg (28.0-33.3); Mean Corpuscular Volume 85.2 fL (83.0-100.0); Mean Platelet Volume 10.2 fL (9.4-12.4); Monocytes # 0.5 K/mcL (0.0-1.3); Neutrophils # 4.4 K/mcL (1.6-8.9); Platelet Count 159 K/mcL (140-400); Red Blood Count 3.52 M/mcL (4.19-5.50); Red Cell Distribution Width 13.1 % (11.5-14.5); Segmented Neutrophils % 70.6 %
[2017-07-07 04:53] LABS: BUN/Creatinine Ratio 35 (6-26); Blood Urea Nitrogen 34 mg/dL (8-26); Calcium 8.7 mg/dL (8.6-10.8); Carbon Dioxide 25 mEq/L (19-29); Chloride 107 mEq/L (98-109); Glucose 293 mg/dL (70-99); Osmolality,Calculated 306 (280-300); Potassium 4.1 mEq/L (3.5-4.5); Sodium 139 mEq/L (136-145); eGFR For African Americans > 60 (> 60); eGFR For Non-African Americans > 60 (> 60)
[2017-07-07] MEDS: *HR* Heparin 5,000 UNIT/ML VIAL SQ SCH ×2 (06:01→16:33)
[2017-07-07] MEDS: Nicotine 21 MG PATCH.TD24 TD SCH (08:40)
[2017-07-07] MEDS: Insulin LISPRO 300 UNITS/3 ML VIAL SQ SCH ×4 (08:41→21:47)
--- NOTE | 2017-07-07 09:23 | Electrocardiograph Report ---
[address] [address] Test Date: 2017-07-04 Pat Name: Marcus Grant Department: 102 Room: 2A Gender: M Emergency Services Dispatcher: Am : 1945 Requested By: Deep Glover Order Number: [id number] Reading MD: Yoni Matute MD Measurements Intervals [place] Rate: 118 P: 53 IL: 136 QRS: 48 QRSD: 98 T: 57 QT: 296 QTc: 366 Interpretive Statements SINUS TACHYCARDIA BASELINE ARTIFACT Electronically Signed On 07-07-2017 9:21:54 EDT by Yoni Matute MD
[2017-07-07] MEDS: Insulin DETEMIR 100 UNIT/ML X5UNITS SQ SCH ×2 (11:27→21:47)
[2017-07-07] MEDS ORDERED: Insulin DETEMIR 100 UNIT/ML X5UNITS SQ SCH (11:28)
--- NOTE | 2017-07-07 15:09 | Internal Med Progress Note ---
<Kacey Oliver - Last Filed: 07/07/17 16:37> Date of Encounter: 07/07/17 Time of Encounter: 11:07 - Assessment and plan (1) Delirium Current Visit: Yes Status: Acute Assessment and plan: Pt has history of schizophrenia Currently AO x 3, however some suggestion not completely aware of current situation (2) Hypertension Current Visit: Yes Status: Acute Assessment and plan: Continue to monitor Continue lisinopril as patient with HX of DM BP within normal limits If SBP > 180, pt may receive hydralazine Qualifiers: Hypertension type: essential hypertension Qualified Code(s): I10 - Essential (primary) hypertension (3) Acute on chronic kidney failure Current Visit: Yes Status: Acute Qualifiers: Acute renal failure type: unspecified Chronic kidney disease stage: unspecified stage Qualified Code(s): N17.9 - Acute kidney failure, unspecified ; N18.9 - Chronic kidney disease, unspecified (4) Failure to thrive in adult Current Visit: Yes Status: Acute Assessment and plan: :ancelmo in [facility], altered mentation. unlikely patient can care for himself. discussed possible [facility] placement with daughter, who agrees. Plan: awaiting placement consult social welfare clerk. Haldol PRN for agitation. see psych consult note for further details. (5) DMII (diabetes mellitus, type 2) Current Visit: Yes Status: Acute Assessment and plan: Continue low dose sliding scale, basal insulin started. Continue to trend glucose Pt transition to Insulin 10 SQ BID for greater control of levels Qualifiers: Diabetes mellitus complication status: with hyperglycemia Diabetes mellitus assisted insulin use: without assisted use Qualified Code(s): E11.65 - Type 2 diabetes mellitus with hyperglycemia (6) UTI (urinary tract infection) Current Visit: Yes Status: Acute Assessment and plan: Urine culture positive for Enterobacter cloacae complex Possibly attributing to altered mentation/agitation on admission Pt on Day 4/7 on Rocephin, demosntrated sensitivity to rocephin on culture Plan for completion of Rocephin Qualifiers: Urinary tract infection type: site unspecified Hematuria presence: with hematuria Qualified Code(s): N39.0 - Urinary tract infection, site not specified; R31.9 - Hematuria, unspecified (7) Schizophrenia Current Visit: Yes Status: Acute Assessment and plan: Hx of mental illness lives in [facility]. patient was evaluated by psychiatry. plan is to contact [facility]PS social welfare clerk on board. if not able to care for himself, may need guardianship, would benefit from geriatric psych unit placement, Per psych, pink slip permissible Pt with sitter during hospitalization Please see psych consult note for further details. Qualifiers: Schizophrenia type: disorganized schizophrenia Qualified Code(s): F20.1 - Disorganized schizophrenia (8) DVT prophylaxis Current Visit: Yes Status: Acute Assessment and plan: Heparin SqQ - Time Spent With Patient 25 - 35 minutes - Subjective Interval history: Pt states he feels "perfect". Pt AO x 3. States he would like to go home. Here with daughter, who is primary assistant child care teacher. - Constitutional Vitals: Temp Pulse Resp BP Pulse Ox 98.0 F 86 18 148/76 100 07/07/17 11:26 07/07/17 11:26 07/07/17 11:26 07/07/17 11:26 07/07/17 11:26 General appearance: Present: A&O X 3, pleasant, no acute distress - Respiratory Respiratory exam: Present: CTAB. Absent: accessory muscle use, rales, rhonchi, wheezes - GI/Abdominal GI/Abdominal exam: Present: normal bowel sounds, soft, no peritoneal signs. Absent: distended, tenderness - Extremities Exam Extremities exam: Present: warm. Absent: calf tenderness, cyanotic, pedal edema Internal Medicine: Result - Labs CBC & Chem 7: 07/07/17 03:14 07/07/17 03:14 Labs: Short CBC 07/07/17 Range/Units 03:14 WBC 6.3 (4.3-11.1) K/mcL Hgb 9.7 L (12.9-16.9) g/dL Hct 30.0 L (37.5-50.1) % Plt Count 159 (140-400) K/mcL Neutrophils # 4.4 (1.6-8.9) K/mcL BMP 07/07/17 03:14 Sodium 139 Potassium 4.1 Chloride 107 Carbon Dioxide 25 BUN 34 H Creatinine 0.97 Glucose 293 H Calcium 8.7 Consult Discharge Plan - Plan Additional Instructions: - contact Adult protective services to evaluate patients home and determine if pt is able to return home - SW to speak with family if they feel he is not able to care for himself they will need to consider guardianship so they can make medical decisions for pt since he is not agreeable. - pt would benefit from a geriatric psych unit placement until APS has completed there workup, roya due to poor self care, malnourishment and until pts UTI has cleared due to pt most likely being non compliant with meds if he was to return home. - if pt is unwilling to go to psychiatric unit primary physician can pink slip patient - continue medical workup Referrals: NONE,PCP [Primary Care Provider] - <Jaya Blanco - Last Filed: 07/07/17 18:27> Date of Encounter: 07/07/17 - Constitutional Vitals: Temp Pulse Resp BP Pulse Ox 98.2 F 100 18 187/90 100 07/07/17 16:22 07/07/17 16:22 07/07/17 16:22 07/07/17 16:22 07/07/17 16:22 Internal Medicine: Result - Labs CBC & Chem 7: 07/07/17 03:14 07/07/17 03:14 Labs: Short CBC 07/07/17 Range/Units 03:14 WBC 6.3 (4.3-11.1) K/mcL Hgb 9.7 L (12.9-16.9) g/dL Hct 30.0 L (37.5-50.1) % Plt Count 159 (140-400) K/mcL Neutrophils # 4.4 (1.6-8.9) K/mcL BMP 07/07/17 03:14 Sodium 139 Potassium 4.1 Chloride 107 Carbon Dioxide 25 BUN 34 H Creatinine 0.97 Glucose 293 H Calcium 8.7 - Attending Attestation I examined this patient and my medical decision-making was reviewed with the Resident Physician. I agree with the documented findings, disposition and treatment plan as described except to the extent set forth below.
[2017-07-07] MEDS ORDERED: Gabapentin 400 MG CAPSULE PO SCH (21:00)
[2017-07-08] MEDS: *HR* Heparin 5,000 UNIT/ML VIAL SQ SCH ×2 (05:28→21:11)
[2017-07-08] MEDS: Nicotine 21 MG PATCH.TD24 TD SCH (08:03)
[2017-07-08] MEDS: Insulin LISPRO 300 UNITS/3 ML VIAL SQ SCH ×4 (08:07→21:11)
[2017-07-08] MEDS: Insulin DETEMIR 100 UNIT/ML X5UNITS SQ SCH ×2 (08:11→21:10)
--- NOTE | 2017-07-08 14:19 | Internal Med Progress Note ---
<Kacey Oliver - Last Filed: 07/08/17 18:09> Date of Encounter: 07/08/17 Time of Encounter: 09:00 - Assessment and plan (1) Failure to thrive in adult Current Visit: Yes Status: Acute Assessment and plan: Per manager social services note, agree that patient is unlikely be able to live independently safely Recommendation for extra care facility to daughter, who agrees. Psych on consult and pt may require pink slip, appreciate recs Plan: Awaiting placement to Consult social media marketing manager placed. Per social work, [facility] not currently have beds - may have in future date. Haldol PRN for agitation, family aware pt may require haldol See psych consult note for further details. (2) UTI (urinary tract infection) Current Visit: Yes Status: Acute Assessment and plan: Urine culture positive for Enterobacter cloacae complex Possibly attributing to acute presentation of altered mentation/agitation on admission Pt on Day 5/7 on Rocephin, demonstrated sensitivity to rocephin on culture Plan for completion of Rocephin Qualifiers: Urinary tract infection type: acute cystitis Hematuria presence: without hematuria Qualified Code(s): N30.00 - Acute cystitis without hematuria (3) Hypertension Current Visit: Yes Status: Acute Assessment and plan: Continue to monitor Continue lisinopril as patient with HX of DM Elevated SBP noted If SBP > 180, pt may receive hydralazine PRN. Qualifiers: Hypertension type: essential hypertension Qualified Code(s): I10 - Essential (primary) hypertension (4) DMII (diabetes mellitus, type 2) Current Visit: Yes Status: Acute Assessment and plan: Continue low dose sliding scale, basal insulin started. Continue to trend glucose Glucose levels lower than yesterday, however remain elevated Pt transition to Insulin 15 SQ BID for greater control of levels A1c > 13%, hence indication for insulin Qualifiers: Diabetes mellitus complication status: with hyperglycemia Diabetes mellitus long-term insulin use: without director of maternity services use Qualified Code(s): E11.65 - Type 2 diabetes mellitus with hyperglycemia (5) Schizophrenia Current Visit: Yes Status: Acute Assessment and plan: Hx of mental illness Patient was evaluated by psychiatry. Per psych, pink slip permissible Plan to contact [facility] environmental field services technician on board. May benefit from geriatric psych unit placement, Please see psych consult note for further details. Qualifiers: Schizophrenia type: disorganized schizophrenia Qualified Code(s): F20.1 - Disorganized schizophrenia (6) Severe protein-calorie malnutrition Current Visit: Yes Status: Acute Assessment and plan: See contract administration manager note for additional detail Likely 2/2 to psychiatric condition Pt on supplemental nutritional drinks (7) DVT prophylaxis Current Visit: Yes Status: Acute Assessment and plan: Heparin SqQ - Subjective Interval history: Pt states he feels "perfect". Adamantly insists he would like to go home. Pt not alert to situation. However, pt alert and oriented to person, time and place. Pt states his mother yesterday, however pt's daughter (Ms. Frost) states his mother a long time ago. Pt states that he has neighbors willing to "take care of me", however daughter relates that pt does not have any caretakers and has lived in poor conditions at home with serious mold infestation. She believes he would not be safe at home by himself. - Constitutional Vitals: Temp Pulse Resp BP Pulse Ox 97.5 F L 93 17 176/78 98 07/08/17 11:18 07/08/17 11:18 07/08/17 11:18 07/08/17 11:18 07/08/17 11:18 General appearance: Present: cooperative, A&O X 3 (not to situation ), pleasant - Respiratory Respiratory exam: Present: CTAB. Absent: accessory muscle use, rales, rhonchi, wheezes - Cardiovascular Cardiovascular exam: Present: RRR, +S1, +S2. Absent: diastolic murmur, gallop, rubs, systolic murmur - GI/Abdominal GI/Abdominal exam: Present: normal bowel sounds, soft, no peritoneal signs. Absent: distended, tenderness - Psychiatric Psychiatric exam: Present: anxious. Absent: suicidal ideation - Expanded Psychiatric Exam Focused psych exam: Present: delusional, flight of ideas Internal Medicine: Result - Labs CBC & Chem 7: 07/07/17 03:14 07/07/17 03:14 Consult Discharge Plan - Plan Additional Instructions: - contact Adult protective services to evaluate patients home and determine if pt is able to return home - SW to speak with family if they feel he is not able to care for himself they will need to consider guardianship so they can make medical decisions for pt since he is not agreeable. - pt would benefit from a geriatric psych unit placement until APS has completed there workup, roya due to poor self care, malnourishment and until pts UTI has cleared due to pt most likely being non compliant with meds if he was to return home. - if pt is unwilling to go to psychiatric unit primary physician can pink slip patient - continue medical workup Referrals: NONE,PCP [Primary Care Provider] - <TitoStanislaw A - Last Filed: 07/08/17 19:33> Date of Encounter: 07/08/17 - Assessment and plan (1) UTI (urinary tract infection) Current Visit: Yes Status: Acute Qualifiers: Urinary tract infection type: acute cystitis Hematuria presence: without hematuria Qualified Code(s): N30.00 - Acute cystitis without hematuria (2) Severe protein-calorie malnutrition Current Visit: Yes Status: Acute (3) Delirium Current Visit: Yes Status: Acute (4) DMII (diabetes mellitus, type 2) Current Visit: Yes Status: Acute Qualifiers: Diabetes mellitus complication status: with hyperglycemia Diabetes mellitus director of maternity services insulin use: without long-term use Qualified Code(s): E11.65 - Type 2 diabetes mellitus with hyperglycemia (5) Hypertension Current Visit: Yes Status: Acute Qualifiers: Hypertension type: essential hypertension Qualified Code(s): I10 - Essential (primary) hypertension (6) Schizophrenia Current Visit: Yes Status: Acute Qualifiers: Schizophrenia type: disorganized schizophrenia Qualified Code(s): F20.1 - Disorganized schizophrenia - Constitutional Vitals: Temp Pulse Resp BP Pulse Ox 97.5 F L 93 17 176/78 98 07/08/17 11:18 07/08/17 11:18 07/08/17 11:18 07/08/17 11:18 07/08/17 11:18 Internal Medicine: Result - Labs CBC & Chem 7: 07/07/17 03:14 07/07/17 03:14 - Attending Attestation I examined this patient and my medical decision-making was reviewed with the Resident Physician on 07/08/17. I agree with the documented findings, disposition and treatment plan as described except to the extent set forth below. Mr Grant is currently admitted for acute encephalopathy and UTI. He remains moderate to high risk due to potential for worsening clinical and psychiatric status. Mr Grant wants to leave. He denies CP or SOB. No fever or chills. On IV Rocephin. Exam Alert. Comfortable at this time Heart reg No wheeze Abd soft I/P 1. UTI 2. Encephalopathy Pt is medically clear for discharge to [facility]. Most likely will need pink slip to go. Further diagnoses and plan as above.
[2017-07-09 04:32] LABS: Basophils # 0.1 K/mcL (0.0-0.2); Basophils % 0.8 %; Eosinophils # 0.2 K/mcL (0.0-0.6); Eosinophils % 2.7 %; Hematocrit 31.6 % (37.5-50.1); Hemoglobin 10.5 g/dL (12.9-16.9); Immature Granulocytes % 2.1 % (0-4); Lymphocytes % 13.7 %; Mean Corpuscular HGB Conc 33.2 g/dL (31.6-35.5); Mean Corpuscular Hemoglobin 28.3 pg (28.0-33.3); Mean Corpuscular Volume 85.2 fL (83.0-100.0); Mean Platelet Volume 10.1 fL (9.4-12.4); Monocytes # 0.6 K/mcL (0.0-1.3); Neutrophils # 5.4 K/mcL (1.6-8.9); Platelet Count 186 K/mcL (140-400); Red Blood Count 3.71 M/mcL (4.19-5.50); Red Cell Distribution Width 13.4 % (11.5-14.5); Segmented Neutrophils % 72.7 %
[2017-07-09 04:42] LABS: BUN/Creatinine Ratio 40 (6-26); Blood Urea Nitrogen 35 mg/dL (8-26); Calcium 8.8 mg/dL (8.6-10.8); Carbon Dioxide 24 mEq/L (19-29); Chloride 110 mEq/L (98-109); Glucose 150 mg/dL (70-99); Osmolality,Calculated 305 (280-300); Potassium 4.1 mEq/L (3.5-4.5); Sodium 142 mEq/L (136-145); eGFR For African Americans > 60 (> 60); eGFR For Non-African Americans > 60 (> 60)
[2017-07-09] MEDS: *HR* Heparin 5,000 UNIT/ML VIAL SQ SCH ×2 (05:14→17:24)
[2017-07-09] MEDS: Insulin LISPRO 300 UNITS/3 ML VIAL SQ SCH ×4 (09:07→21:13)
[2017-07-09] MEDS: Insulin DETEMIR 100 UNIT/ML X5UNITS SQ SCH ×2 (09:41→21:11)
[2017-07-09] MEDS: Nicotine 21 MG PATCH.TD24 TD SCH (09:43)
--- NOTE | 2017-07-09 17:18 | Internal Med Progress Note ---
<Kacey Oliver - Last Filed: 07/09/17 17:27> Date of Encounter: 07/09/17 Time of Encounter: 09:00 (approximate - seen AM) - Assessment and plan (1) Failure to thrive in adult Current Visit: Yes Status: Acute Assessment and plan: Per home health care social worker note, agree that patient is unlikely be able to live independently safely Recommendation for extra care facility to daughter, who agrees. Pt now willing to voluntarily transfer and aware of need for support Plan: Awaiting placement Social work on consult, appreciate recs Haldol PRN for agitation, family aware pt may require haldol if combative overnight (2) UTI (urinary tract infection) Current Visit: Yes Status: Acute Assessment and plan: Urine culture positive for Enterobacter cloacae complex Possibly attributing to acute presentation of altered mentation/agitation on admission Pt on Day 5/7 on Rocephin, demonstrated sensitivity to rocephin on culture Plan for completion of Rocephin Qualifiers: Urinary tract infection type: acute cystitis Hematuria presence: without hematuria Qualified Code(s): N30.00 - Acute cystitis without hematuria (3) Hypertension Current Visit: Yes Status: Acute Assessment and plan: Continue to monitor Continue lisinopril as patient with HX of DM Elevated SBP noted If SBP > 180, pt may receive hydralazine PRN. Qualifiers: Hypertension type: essential hypertension Qualified Code(s): I10 - Essential (primary) hypertension (4) DMII (diabetes mellitus, type 2) Current Visit: Yes Status: Acute Assessment and plan: Continue low dose sliding scale, basal insulin started. Continue to trend glucose Glucose levels steadily improving, today at 150 Pt now on 15 SQ BID for greater control of levels A1c > 13%, hence indication for insulin Qualifiers: Diabetes mellitus complication status: with hyperglycemia Diabetes mellitus collective bargaining specialist insulin use: without collective bargaining specialist use Qualified Code(s): E11.65 - Type 2 diabetes mellitus with hyperglycemia (5) Schizophrenia Current Visit: Yes Status: Acute Assessment and plan: Hx of mental illness Patient was evaluated by psychiatry. Per psych, pink slip permissible health services manager on board. Please see psych consult note for further details. Qualifiers: Schizophrenia type: disorganized schizophrenia Qualified Code(s): F20.1 - Disorganized schizophrenia (6) Severe protein-calorie malnutrition Current Visit: Yes Status: Acute Assessment and plan: See combat engineer note for additional detail Per combat engineer, likely 2/2 to context of social / environmental circumstances related to mental health as evidenced by unintentional weight loss, overall severe muscle and fat wasting, reported poor nutrition >6 months. BMI 17.9. High protein ensure supplements have been added. (7) DVT prophylaxis Current Visit: Yes Status: Acute Assessment and plan: Heparin SqQ - Time Spent With Patient 25 - 35 minutes - Subjective Interval history: Pt cooperative this AM. Pt alert and oriented to person, time and place. Pt is clear that his brother , which daughter attests. While pt was speaking to daughter, pt volitionally took cane and got up to share that he would like to attend brother's in 2 days. Pt ate breakfast and admits his glucose levels were uncontrolled prior to hospitalization. He spoke to home health care social worker late AM and was amenable to willingly transfer to an extra care facility. - Constitutional Vitals: Temp Pulse Resp BP Pulse Ox 97.4 F L 86 17 102/61 99 07/09/17 07:51 07/09/17 07:51 07/09/17 07:51 07/09/17 07:51 07/09/17 07:51 General appearance: Present: cooperative, A&O X 3 (now aware glucose levels and HTN was uncontrolled prior to hospitalization ), pleasant - Neck Neck exam general surgery: Present: trachea midline. Absent: lymphadenopathy - Respiratory Respiratory exam: Present: CTAB. Absent: accessory muscle use, rales, rhonchi, wheezes - Cardiovascular Cardiovascular exam: Present: RRR, +S1, +S2. Absent: diastolic murmur, gallop, rubs, systolic murmur - GI/Abdominal GI/Abdominal exam: Present: normal bowel sounds, soft, no peritoneal signs. Absent: distended, tenderness Internal Medicine: Result - Labs CBC & Chem 7: 07/09/17 04:02 07/09/17 04:02 Labs: Short CBC 07/09/17 Range/Units 04:02 WBC 7.5 (4.3-11.1) K/mcL Hgb 10.5 L (12.9-16.9) g/dL Hct 31.6 L (37.5-50.1) % Plt Count 186 (140-400) K/mcL Neutrophils # 5.4 (1.6-8.9) K/mcL BMP 07/09/17 04:02 Sodium 142 Potassium 4.1 Chloride 110 H Carbon Dioxide 24 BUN 35 H Creatinine 0.88 Glucose 150 H Calcium 8.8 Consult Discharge Plan - Plan Additional Instructions: - contact Adult protective services to evaluate patients home and determine if pt is able to return home - SW to speak with family if they feel he is not able to care for himself they will need to consider guardianship so they can make medical decisions for pt since he is not agreeable. - pt would benefit from a geriatric psych unit placement until APS has completed there workup, roya due to poor self care, malnourishment and until pts UTI has cleared due to pt most likely being non compliant with meds if he was to return home. - if pt is unwilling to go to psychiatric unit primary physician can pink slip patient - continue medical workup Referrals: NONE,PCP [Primary Care Provider] - <Stanislaw Francis - Last Filed: 07/09/17 18:19> Date of Encounter: 07/09/17 - Assessment and plan (1) Acute metabolic encephalopathy Current Visit: Yes Status: Acute (2) UTI (urinary tract infection) Current Visit: Yes Status: Acute Qualifiers: Urinary tract infection type: acute cystitis Hematuria presence: without hematuria Qualified Code(s): N30.00 - Acute cystitis without hematuria (3) Severe protein-calorie malnutrition Current Visit: Yes Status: Acute (4) DMII (diabetes mellitus, type 2) Current Visit: Yes Status: Acute Qualifiers: Diabetes mellitus complication status: with hyperglycemia Diabetes mellitus collective bargaining specialist insulin use: without collective bargaining specialist use Qualified Code(s): E11.65 - Type 2 diabetes mellitus with hyperglycemia (5) Hypertension Current Visit: Yes Status: Acute Qualifiers: Hypertension type: essential hypertension Qualified Code(s): I10 - Essential (primary) hypertension (6) Schizophrenia Current Visit: Yes Status: Acute Qualifiers: Schizophrenia type: disorganized schizophrenia Qualified Code(s): F20.1 - Disorganized schizophrenia - Constitutional Vitals: Temp Pulse Resp BP Pulse Ox 97.4 F L 86 17 102/61 99 07/09/17 07:51 07/09/17 07:51 07/09/17 07:51 07/09/17 07:51 07/09/17 07:51 Internal Medicine: Result - Labs CBC & Chem 7: 07/09/17 04:02 07/09/17 04:02 Labs: Short CBC 07/09/17 Range/Units 04:02 WBC 7.5 (4.3-11.1) K/mcL Hgb 10.5 L (12.9-16.9) g/dL Hct 31.6 L (37.5-50.1) % Plt Count 186 (140-400) K/mcL Neutrophils # 5.4 (1.6-8.9) K/mcL BMP 07/09/17 04:02 Sodium 142 Potassium 4.1 Chloride 110 H Carbon Dioxide 24 BUN 35 H Creatinine 0.88 Glucose 150 H Calcium 8.8 - Attending Attestation I examined this patient and my medical decision-making was reviewed with the Resident Physician on 07/09/17. I agree with the documented findings, disposition and treatment plan as described except to the extent set forth below. Mr. Grant is currently admitted for UTI and encephalopathy. He remains moderate risk due to potential for worsening psychiatric and infectious status. Mr. Grant is restless. He is up and about and wants to leave. His sister is here and working with for discharge planning. Exam alert. restless Heart reg No wheeze No edema I/P 1. Encephalopathy 2. UTI - medically clear for discharge D/C planning - will ask for reeval by psych - ? need geropsych versus meds at this time and SNF placement. Further diagnoses and plan as above.
[2017-07-10 04:26] LABS: Basophils # 0.1 K/mcL (0.0-0.2); Basophils % 0.9 %; Eosinophils # 0.2 K/mcL (0.0-0.6); Eosinophils % 2.8 %; Hematocrit 31.3 % (37.5-50.1); Hemoglobin 10.5 g/dL (12.9-16.9); Immature Granulocytes % 1.3 % (0-4); Lymphocytes # 0.9 K/mcL (0.6-4.6); Lymphocytes % 13.6 %; Mean Corpuscular HGB Conc 33.5 g/dL (31.6-35.5); Mean Corpuscular Hemoglobin 28.3 pg (28.0-33.3); Mean Corpuscular Volume 84.4 fL (83.0-100.0); Mean Platelet Volume 10.1 fL (9.4-12.4); Monocytes # 0.6 K/mcL (0.0-1.3); Monocytes % 9.4 %; Neutrophils # 4.8 K/mcL (1.6-8.9); Platelet Count 181 K/mcL (140-400); Red Blood Count 3.71 M/mcL (4.19-5.50); Red Cell Distribution Width 13.5 % (11.5-14.5)
[2017-07-10 04:47] LABS: BUN/Creatinine Ratio 42 (6-26); Blood Urea Nitrogen 35 mg/dL (8-26); Carbon Dioxide 23 mEq/L (19-29); Chloride 111 mEq/L (98-109); Glucose 71 mg/dL (70-99); Osmolality,Calculated 298 (280-300); Sodium 141 mEq/L (136-145); eGFR For African Americans > 60 (> 60); eGFR For Non-African Americans > 60 (> 60)
[2017-07-10] MEDS: *HR* Heparin 5,000 UNIT/ML VIAL SQ SCH (06:13)
[2017-07-10 07:05] VITALS: BP 182/93
[2017-07-10] MEDS: Insulin DETEMIR 100 UNIT/ML X5UNITS SQ SCH (09:01)
[2017-07-10] MEDS: Insulin LISPRO 300 UNITS/3 ML VIAL SQ SCH ×2 (09:01→11:48)
[2017-07-10] MEDS: Nicotine 21 MG PATCH.TD24 TD SCH (09:02)
--- NOTE | 2017-07-10 10:17 | Internal Med Progress Note ---
Date of Encounter: 07/10/17 Time of Encounter: 10:16 - Assessment and plan (1) Failure to thrive in adult Current Visit: Yes Status: Acute (2) UTI (urinary tract infection) Current Visit: Yes Status: Acute Qualifiers: Urinary tract infection type: acute cystitis Hematuria presence: without hematuria Qualified Code(s): N30.00 - Acute cystitis without hematuria (3) Hypertension Current Visit: Yes Status: Acute Qualifiers: Hypertension type: essential hypertension Qualified Code(s): I10 - Essential (primary) hypertension (4) DMII (diabetes mellitus, type 2) Current Visit: Yes Status: Acute Qualifiers: Diabetes mellitus complication status: with hyperglycemia Diabetes mellitus fci insulin use: without roasterman use Qualified Code(s): E11.65 - Type 2 diabetes mellitus with hyperglycemia (5) Schizophrenia Current Visit: Yes Status: Acute Qualifiers: Schizophrenia type: disorganized schizophrenia Qualified Code(s): F20.1 - Disorganized schizophrenia (6) Severe protein-calorie malnutrition Current Visit: Yes Status: Acute (7) DVT prophylaxis Current Visit: Yes Status: Acute - Subjective Interval history: Pt cooperative this AM. No acute events overnight. - Constitutional Vitals: Temp Pulse Resp BP Pulse Ox 97.7 F 88 16 182/93 98 07/10/17 06:55 07/10/17 06:55 07/10/17 06:55 07/10/17 06:55 07/10/17 06:55 General appearance: Present: cooperative, A&O X 3 (now aware glucose levels and HTN was uncontrolled prior to hospitalization ), pleasant Internal Medicine: Result - Labs CBC & Chem 7: 07/10/17 02:42 07/10/17 02:42 Labs: Short CBC 07/10/17 Range/Units 02:42 WBC 6.7 (4.3-11.1) K/mcL Hgb 10.5 L (12.9-16.9) g/dL Hct 31.3 L (37.5-50.1) % Plt Count 181 (140-400) K/mcL Neutrophils # 4.8 (1.6-8.9) K/mcL BMP 07/10/17 02:42 Sodium 141 Potassium 4.0 Chloride 111 H Carbon Dioxide 23 BUN 35 H Creatinine 0.83 Glucose 71 Calcium 9.0 Consult Discharge Plan - Plan Additional Instructions: - contact Adult protective services to evaluate patients home and determine if pt is able to return home - SW to speak with family if they feel he is not able to care for himself they will need to consider guardianship so they can make medical decisions for pt since he is not agreeable. - pt would benefit from a geriatric psych unit placement until APS has completed there workup, roya due to poor self care, malnourishment and until pts UTI has cleared due to pt most likely being non compliant with meds if he was to return home. - if pt is unwilling to go to psychiatric unit primary physician can pink slip patient - continue medical workup Referrals: NONE,PCP [Primary Care Provider] - (patient is going to [facility])
--- NOTE | 2017-07-10 13:23 | Psychiatry Progress Note ---
Date of Encounter: 07/10/17 Time of Encounter: 13:21 Subjective Interval history: Pt would benefit [facility] for further stabilization and due to t not being able to care for himself at this time. [facility] and would benefit from [facility] Diagnosis: Neurocognitive disorder Mood disorder unspecified Review of Systems Psychiatric: Reports: memory loss Results - Vital Signs Vital Signs: Temp Pulse Resp BP Pulse Ox 97.7 F 88 16 182/93 98 07/10/17 06:55 07/10/17 06:55 07/10/17 06:55 07/10/17 06:55 07/10/17 06:55 - Labs Labs: Laboratory Results - last 24 hr 07/09/17 07/09/17 07/09/17 07:52 11:51 16:12 WBC RBC Hgb Hct MCV MCH MCHC RDW Plt Count MPV Immature Gran % Seg Neutrophils % Lymphocytes % Monocytes % Eosinophils % Basophils % Neutrophils # Lymphocytes # Monocytes # Eosinophils # Basophils # Sodium Potassium Chloride Carbon Dioxide BUN Creatinine Est GFR ( Amer) Est GFR (Non-Af Amer) BUN/Creatinine Ratio Glucose POC Glucose 130 H 284 H 133 H Calculated Osmolality Calcium 07/09/17 07/09/17 07/10/17 20:03 20:05 02:42 WBC 6.7 RBC 3.71 L Hgb 10.5 L Hct 31.3 L MCV 84.4 MCH 28.3 MCHC 33.5 RDW 13.5 Plt Count 181 MPV 10.1 Immature Gran % 1.3 Seg Neutrophils % 72.0 Lymphocytes % 13.6 Monocytes % 9.4 Eosinophils % 2.8 Basophils % 0.9 Neutrophils # 4.8 Lymphocytes # 0.9 Monocytes # 0.6 Eosinophils # 0.2 Basophils # 0.1 Sodium Potassium Chloride Carbon Dioxide BUN Creatinine Est GFR ( Amer) Est GFR (Non-Af Amer) BUN/Creatinine Ratio Glucose POC Glucose 311 H 302 H Calculated Osmolality Calcium 07/10/17 02:42 WBC RBC Hgb Hct MCV MCH MCHC RDW Plt Count MPV Immature Gran % Seg Neutrophils % Lymphocytes % Monocytes % Eosinophils % Basophils % Neutrophils # Lymphocytes # Monocytes # Eosinophils # Basophils # Sodium 141 Potassium 4.0 Chloride 111 H Carbon Dioxide 23 BUN 35 H Creatinine 0.83 Est GFR ( Amer) > 60 Est GFR (Non-Af Amer) > 60 BUN/Creatinine Ratio 42 H Glucose 71 POC Glucose Calculated Osmolality 298 Calcium 9.0 - Impressions ITS Impressions Head CT 07/05/17 00:01 IMPRESSION: No acute intracranial abnormality. D/ / Yulissa Segura Cha, MD / Yulissa Segura Cha, MD Interpreting Provider: Yulissa Segura Cha, MD Consult Discharge Plan - Plan Additional Instructions: - contact Adult protective services to evaluate patients home and determine if pt is able to return home - SW to speak with family if they feel he is not able to care for himself they will need to consider guardianship so they can make medical decisions for pt since he is not agreeable. - pt would benefit from a geriatric psych unit placement until APS has completed there workup, roya due to poor self care, malnourishment and until pts UTI has cleared due to pt most likely being non compliant with meds if he was to return home. - if pt is unwilling to go to psychiatric unit primary physician can pink slip patient - continue medical workup Referrals: NONE,PCP [Primary Care Provider] - (patient is going to [facility])
--- NOTE | 2017-07-10 13:33 | Discharge Summary ---
<Kacey Oliver - Last Filed: 07/10/17 16:10> Date of Encounter: 07/10/17 Time of Encounter: 13:18 - Discharge Diagnosis (1) Failure to thrive in adult Priority: Primary Status: Chronic (2) UTI (urinary tract infection) Priority: Primary Status: Resolved Qualifiers: Urinary tract infection type: acute cystitis Hematuria presence: without hematuria Qualified Code(s): N30.00 - Acute cystitis without hematuria (3) Hypertension Priority: Secondary Status: Chronic Qualifiers: Hypertension type: essential hypertension Qualified Code(s): I10 - Essential (primary) hypertension (4) DMII (diabetes mellitus, type 2) Priority: Primary Status: Chronic Qualifiers: Diabetes mellitus complication status: with hyperglycemia Diabetes mellitus truck washer insulin use: without truck washer use Qualified Code(s): E11.65 - Type 2 diabetes mellitus with hyperglycemia (5) Schizophrenia Priority: Primary Status: Chronic Qualifiers: Schizophrenia type: disorganized schizophrenia Qualified Code(s): F20.1 - Disorganized schizophrenia (6) Severe protein-calorie malnutrition Priority: Primary Status: Chronic (7) DVT prophylaxis Priority: Secondary Status: Inactive - Discharge Medications Prescriptions: Quetiapine Fumarate [SEROquel] 25 mg PO HS #30 tablet Home Medications: Insulin DETEMIR [Levemir] 15 unit SQ BID 07/10/17 [Rx] Lisinopril [Zestril] 10 mg PO DAILY tab 07/10/17 [Rx] Nicotine Patch [Nicoderm] 21 mg TD DAILY 07/10/17 [Rx] Quetiapine Fumarate [SEROquel] 25 mg PO HS #30 tablet 07/10/17 [Rx] Allergies/Adverse Reactions: 3 Allergy/AdvReac Type Severity Reaction Status Date / Time No Known Allergies Allergy Verified 07/04/17 12:54 Procedures/tests Complete & Pending: Foot X-Ray 07/04/17 14:20 IMPRESSION: No evidence of osteomyelitis. D/ / Brown Murdock MD / Brown Murdock MD Interpreting Provider: Brown Murdock MD Chest X-Ray 07/04/17 14:42 IMPRESSION: No acute process. D/ / Rustam Ye MD / Rustam Ye MD Interpreting Provider: Rustam Ye MD Head CT 07/05/17 00:01 IMPRESSION: No acute intracranial abnormality. D/ / Yulissa Segura Cha, MD / Yulissa Segura Cha, MD Interpreting Provider: Yulissa Segura Cha, MD Date of admission: 07/04/17 19:55 Primary care physician: PCP NONE Consults: 07/04/17 19:58 Consult to Physical Therapy [CONS] Routine Comment: Evaluate, develop and implement POC Reason for Consult: evaluate placement Consult to Global Process Owner [CONS] Routine Reason for SW Consult: unable to care at home. 07/04/17 20:00 Consult to Psychiatry [CONS] Routine Consulting Provider: Psych[facility] [place] Reason for Consult: psych eval. unable to self care. Schizo, dementia Call Completed: No 07/04/17 20:06 Consult to Podiatry [CONS] Routine Consulting Provider: [facility] Reason for Consult: diabetic foot ulcer and toe nails needing trimming Call Completed: No 07/04/17 22:17 Consult to Nutrition [CONS] Routine Comment: significant weight lost since begin of Consulting Provider: NUTRITION Reason for Dietary Consult: MST Score Other:: non compliant with diabetes and diet 07/05/17 12:05 Consult to Occupational Therapy [CONS] Routine Comment: Evaluate, develop and implement POC Reason for Consult: failure to thrive in adult. 07/09/17 09:58 Consult to Wound Care [CONS] Routine Reason for Consult: foot ulcer Time Notified: 10:00 Call Completed: Yes 07/09/17 15:03 Consult to Psychiatry [CONS] Routine Consulting Provider: Gera Ryan Reason for Consult: Please reconsult and advise if needs inpatient treatment or meds for treatment. Thx Time Notified: 15:00 Call Completed: Yes - Patient Status Disposition: Transfer SNF Condition: Fair Functional capacity at discharge: uses cane/walker Overall status at discharge: patient is progressing back to baseline - Discharge Instructions Follow Up With: NONE,PCP [Primary Care Provider] - (patient is going to [facility]) Additional Instructions: Please follow up with PCP as scheduled Please follow up with [facility] Continue your home medications Please begin Seroquel 25 mg at night Please return for any new or worsening symptoms - Diet and Activity Activity: ambulate only with your walker, increase activity as tolerated Diet: diabetic diet Interval History: No acute events overnight. This morning patient decided not to visit . He is amenable to transfer to SNF. Not alert to situation - believes mother has . Writing MD met with marriage and family social worker and daughter - daughter received guardian ship forms. Hospital course: Mr. Grant is a 71 year old male with a past medical history of schizoprenia, dementia, and DM II who has not been following with his PCP for the past 3 years. He presented on urging by family to the hospital for evaluation of failure to thrive, concern over ability to self-care by family. He lives alone at home and is reported to be in a poor living condition with reports of "black mold." Per family, he has threatened family if they moved patient from home. Psychology was placed on consult. On admission, patient was found to have a glucose level of 486 in the ED. Patient's glucose levels were monitored. Glucose levels successfully responded to adjustment in insulin. Additionally patient reported symptoms suggestive of UTI. UTI returned positive for Enterobacter and patient successfully completed full course of rocephin. During hospitalization, pt did not require restraints and was cooperative, and eventually amenable to transfer to F. - Time Spent with Patient Total time spent providing and/or coordinating discharge services: - Constitutional Vitals: Temp Pulse Resp BP Pulse Ox 97.7 F 88 16 182/93 98 07/10/17 06:55 07/10/17 06:55 07/10/17 06:55 07/10/17 06:55 07/10/17 06:55 General appearance: Present: cooperative, A&O X 3 (now aware glucose levels and HTN was uncontrolled prior to hospitalization ), pleasant - Head Head exam: Present: atraumatic, normocephalic - Respiratory Respiratory exam: Present: CTAB. Absent: accessory muscle use, rales, rhonchi, wheezes - GI/Abdominal GI/Abdominal exam: Present: normal bowel sounds, soft, no peritoneal signs. Absent: distended, tenderness - Neurological Exam Neurological exam: Present: alert. Absent: facial droop, speech deficit - Psychiatric Additional comments: Mental Status Exam: Appearance: Attitude - Cooperative. Appears his stated age. Mood : "good" Affect: Appropriate, Tat [place] Dramatic, Labile, Reactive Speech: Speech fluid and clear. Thought process: Flight of ideas. Thought Content: Positive for delusions Judgment: Poor, regarding medical condition <Stanislaw Francis - Last Filed: 07/10/17 18:27> Date of Encounter: 07/10/17 - Discharge Diagnosis (1) Acute metabolic encephalopathy Priority: Primary Status: Acute (2) UTI (urinary tract infection) Status: Resolved Qualifiers: Urinary tract infection type: acute cystitis Hematuria presence: without hematuria Qualified Code(s): N30.00 - Acute cystitis without hematuria (3) Severe protein-calorie malnutrition Priority: Secondary Status: Chronic (4) DMII (diabetes mellitus, type 2) Priority: Secondary Status: Chronic Qualifiers: Diabetes mellitus complication status: with hyperglycemia Diabetes mellitus truck washer insulin use: without nursing home use Qualified Code(s): E11.65 - Type 2 diabetes mellitus with hyperglycemia (5) Hypertension Status: Chronic Qualifiers: Hypertension type: essential hypertension Qualified Code(s): I10 - Essential (primary) hypertension (6) Schizophrenia Status: Chronic Qualifiers: Schizophrenia type: disorganized schizophrenia Qualified Code(s): F20.1 - Disorganized schizophrenia Date of admission: 07/04/17 19:55 Primary care physician: PCP NONE Consults: 07/04/17 19:58 Consult to Physical Therapy [CONS] Routine Comment: Evaluate, develop and implement POC Reason for Consult: evaluate placement Consult to Global Process Owner [CONS] Routine Reason for SW Consult: unable to care at home. 07/04/17 20:00 Consult to Psychiatry [CONS] Routine Consulting Provider: Psych[facility] Reason for Consult: psych eval. unable to self care. Schizo, dementia Call Completed: No 07/04/17 20:06 Consult to Podiatry [CONS] Routine Consulting Provider: [facility] Reason for Consult: diabetic foot ulcer and toe nails needing trimming Call Completed: No 07/04/17 22:17 Consult to Nutrition [CONS] Routine Comment: significant weight lost since begininning of year Consulting Provider: NUTRITION Reason for Dietary Consult: MST Score Other:: non compliant with diabetes and diet 07/05/17 12:05 Consult to Occupational Therapy [CONS] Routine Comment: Evaluate, develop and implement POC Reason for Consult: failure to thrive in adult. 07/09/17 09:58 Consult to Wound Care [CONS] Routine Reason for Consult: foot ulcer Time Notified: 10:00 Call Completed: Yes 07/09/17 15:03 Consult to Psychiatry [CONS] Routine Consulting Provider: Psych[facility] [place] Reason for Consult: Please reconsult and advise if needs inpatient treatment or meds for treatment. Thx Time Notified: 15:00 Call Completed: Yes Hospital course: Mr. Grant is a 71 year old male - Time Spent with Patient Total time spent providing and/or coordinating discharge services: 37min - Constitutional Vitals: Temp Pulse Resp BP Pulse Ox 97.7 F 88 16 182/93 98 07/10/17 06:55 07/10/17 06:55 07/10/17 06:55 07/10/17 06:55 07/10/17 06:55 - Attending Attestation I examined this patient and my medical decision-making was reviewed with the Resident Physician on 07/10/17. I agree with the documented findings, disposition and treatment plan as described except to the extent set forth below. Mr. Grant is doing OK at this time. He agrees to go to SNF. No fever. Vitals stable. Exam Alert. Comfortable Mucus membranes dry Heart reg Plan D/C to SNF Will need further psych follow up.
--- NOTE | 2017-07-10 13:42 | Physician Discharge Referral ---
ExtendedCare Referral Info Transfer To: [facility] Provider in Charge after Transfer: PCP Institutional Level of Care: Skilled - Diagnosis (1) Failure to thrive in adult Priority: Primary Status: Acute (2) UTI (urinary tract infection) Priority: Primary Status: Acute (3) Hypertension Priority: Secondary Status: Chronic (4) DMII (diabetes mellitus, type 2) Priority: Secondary Status: Chronic (5) Schizophrenia Priority: Primary Status: Chronic (6) Severe protein-calorie malnutrition Priority: Primary Status: Acute (7) DVT prophylaxis Priority: Secondary Status: Acute Prognosis: Fair Aware of Diagnosis: Family Aware of Prognosis: Family - Transfer Medications Prescriptions: Quetiapine Fumarate [SEROquel] 25 mg PO HS #30 tablet Home Medications: Insulin DETEMIR [Levemir] 15 unit SQ BID 07/10/17 [Rx] Lisinopril [Zestril] 10 mg PO DAILY tab 07/10/17 [Rx] Nicotine Patch [Nicoderm] 21 mg TD DAILY 07/10/17 [Rx] Quetiapine Fumarate [SEROquel] 25 mg PO HS #30 tablet 07/10/17 [Rx] Allergies/Adverse Reactions: 3 Allergy/AdvReac Type Severity Reaction Status Date / Time No Known Allergies Allergy Verified 07/04/17 12:54 - Respiratory Orders None Smoking Cessation: Smoking cessation has been advised. For more information, call the [employer] Quit Line at 7-265-GNVANOW. - Ancillary Orders May use pressure relief devices daily prn, May go on JAIMEE w/family/respon alliance party w /meds at nurse discretion PRN, May consult with Dentist, Water Quality Manager, Cotton Ball Machine Tender PRN - Advance Directives Living Will: No Power of Dry Wall Sprayer: No Code Status: Full Code - Mobility Orders Ambulate (with walker) - Rehabiliation Orders Rehab Potential: Fair Rehab Orders: Evaluation for Physical Therapy, Evaluation for Occupational Therapy - Treatments Skin tear care topically daily PRN per policy, May check for fecal impaction rectally daily PRN, Fleet enema rectally every other day PRN cleansing purposes - Diet Orders No Concentrated Sweets (diabetic) CERTIFICATION: I certify that the transfer of the above named patient to an Extended Care Facility is necessary for the continuing treatment of the diagnosis listed. The above information is true and accurate reflection of patient's current condition. Confidential - Redisclosure prohibited without a patient's written consent.
== END 2017-07-10 15:09 | DRG 689 ==
LOC: EMEROO 12:45 → 2ANU 12:45 → SUATTDRO 19:55 → 2ANU 07-06 18:55
PROVIDERS: ADMIT Internal Medicine; ATTEND Internal Medicine

== ENCOUNTER 2017-10-09 20:57 | Inpatient (IN) ==
[2017-10-09] MEDS ORDERED: 0.9 % Sodium Chloride 500 ML IVC ONE (21:15)
--- NOTE | 2017-10-09 21:26 | Emergency Department Note ---
Disposition Clinical Impression: Hypoglycemia, HCAP (healthcare-associated pneumonia) Altered mental status Qualifiers: Altered mental status type: unspecified Qualified Code(s): R41.82 - Altered mental status, unspecified Disposition: Admitted As Inpatient Condition: Serious General Adult HPI - General Chief complaint: ED General Medical Stated complaint: HYPOGLYCEMIA Time Seen by Provider: 10/09/17 21:04 Source: family, EMS Limitations: altered mental status Nursing Notes Reviewed: Yes Vital Signs Reviewed: Yes - History of Present Illness HPI Narrative: Patient presents from home where his hospice nurse noticed a low blood sugar approximately 41. There trying to give him honey without significant improvement. Patient was reportedly unresponsive. EMS arrived and gave glucagon as well as starting an IV and gave an amp of dextrose. Patient's mental status has significantly improved since then. Patient size were open and he is awake he looks around and is interactive but does not able to talk or communicate. Patient has coarse Rales from across the room. Patient is on a nonrebreather with a pulse ox of 91-92%. Patient was diagnosed with liver cirrhosis and likely cancer. Multiple investigations are still pending. Patient has failure to thrive. Patient is taking glipizide for elevated blood sugars. His daughter is at bedside. He does not have a specific power of ip attorney. He has not filled out any previous known wishes in regards to care. This is unclear as he did come from hospice. Hospice has been paged to clarify his CODE STATUS. At this point the daughter states they have not finish the workup and wants everything done until they know exactly what is going on. Patient's medical list: Patient's diagnosis includes cancer of unknown origin, cirrhosis of liver, malnutrition, schizophrenia, dementia, type 2 diabetes, hypertension. Medications include Haldol 0.5 mg twice a day. Lisinopril 10 mg daily. Omeprazole 2 mg by mouth daily during the a.m. Next of kin is Margot who is the daughter. Phone numbers include [phone]; [phone] Pain Scale: 0 - Related Data Home Medications Medication Instructions Recorded Confirmed Insulin DETEMIR [Levemir] 30 unit SQ DAILY 09/03/17 09/03/17 Insulin LISPRO [HumaLOG] 0 units SQ TIDWM 09/03/17 09/03/17 Previous Rx's Medication Instructions Recorded Lisinopril [Zestril] 10 mg PO DAILY tab 07/10/17 Nicotine Patch [Nicoderm] 21 mg TD DAILY 07/10/17 Allergies Allergy/AdvReac Type Severity Reaction Status Date / Time No Known Allergies Allergy Verified 10/09/17 21:02 Limitations: ROS unobtainable due to patients medical condition Past Medical History - Past Medical History Medical history: Reports: cancer, diabetes, hyperlipidemia, hypertension, other Surgical history: Reports: other Psychiatric history: Reports: schizophrenia - Social History Smoking Status: Light tobacco smoker Smokeless Tobacco Status: No Alcohol use: Reports: none Drug use: Reports: none Physical Exam - General Limitations: altered mental status General appearance: alert - Head Head exam: atraumatic, normocephalic - Eye Eye exam: Present: normal appearance, PERRL. Absent: scleral icterus, conjunctival injection - Neck Neck exam: Present: normal inspection, trachea midline - Chest Chest inspection: Present: normal inspection, symmetric chest wall rise - Respiratory Respiratory exam: Present: respiratory distress, other (diffuse rales) - Cardiovascular Cardiovascular exam: Present: tachycardia, irregular rhythm - Abdominal Exam Abdominal exam: Present: soft, Non-Tender - Extremities Exam Extremities exam: Present: normal inspection, other (significant malnutrition) - Skin Skin exam: Present: warm, dry, intact Course - Reevaluation(s) Reevaluation #1: Patient significant improvement on BiPAP. After long discussion with the daughter who is in a cam she is not ready to make him DNR comfort care. She is not ready to take him home at this point. She would like to give antibiotics and make him DNR comfort care arrest. She would like him to get antibiotics to see if he turns around. Overall poor prognosis discussed. - Consultations Consultation #1: Discussed with Dr. Padgett. Patient accepted for admission. Vital Signs Temperature 98.7 F 10/09/17 21:02 Pulse Rate 137 10/09/17 21:02 Respiratory Rate 27 10/09/17 21:02 Blood Pressure 175/109 10/09/17 21:02 O2 Sat by Pulse Oximetry 93 10/09/17 21:02 Temperature 98.0 F 10/10/17 03:56 Pulse Rate 95 10/10/17 03:56 Respiratory Rate 17 10/10/17 03:56 Blood Pressure 107/62 10/10/17 03:56 O2 Sat by Pulse Oximetry 95 10/10/17 03:56 Oxygen Delivery Oxygen Delivery Bipap Medical Decision Making - Medical Records Medical records reviewed: Yes I reviewed the patient's medical records. - Lab Data Lab results reviewed: Yes I reviewed the patient's lab results. Result diagrams: 10/10/17 03:25 10/10/17 03:25 Lab Results 10/09/17 10/09/17 10/09/17 Range/Units 21:33 21:33 21:33 WBC 21.2 H (4.3-11.1) K/mcL RBC 4.31 (4.19-5.50) M/mcL Hgb 12.2 L (12.9-16.9) g/dL Hct 35.9 L (37.5-50.1) % MCV 83.3 (83.0-100.0) fL MCH 28.3 (28.0-33.3) pg MCHC 34.0 (31.6-35.5) g/dL RDW 14.8 H (11.5-14.5) % Plt Count 313 (140-400) K/mcL MPV 10.0 (9.4-12.4) fL Immature Gran % 1.3 (0-4) % Seg Neutrophils % 93.7 % Lymphocytes % 1.7 % Monocytes % 3.1 % Eosinophils % 0.1 % Basophils % 0.1 % Neutrophils # 19.9 H (1.6-8.9) K/mcL Lymphocytes # 0.4 L (0.6-4.6) K/mcL Monocytes # 0.7 (0.0-1.3) K/mcL Eosinophils # 0.0 (0.0-0.6) K/mcL Basophils # 0.0 (0.0-0.2) K/mcL Platelet Estimate Normal (Normal) Immature Plt Fraction 3.6 (1.1-6.1) % PT (9.4-12.1) Seconds INR VBG pH (7.32-7.42) pH Units VBG pCO2 (41-51) mmHg VBG pO2 (25-50) mmHg VBG HCO3 (21-27) mEq/L Sodium 140 (136-145) mEq/L Potassium 3.4 L (3.5-4.5) mEq/L Chloride 110 H (98-109) mEq/L Carbon Dioxide 20 (19-29) mEq/L BUN 28 H (8-26) mg/dL Creatinine 1.13 (0.72-1.25) mg/dL Est GFR ( Amer) > 60 (> 60) Est GFR (Non-Af Amer) > 60 (> 60) BUN/Creatinine Ratio 25 (6-26) Glucose 148 H (70-99) mg/dL Calculated Osmolality 298 (280-300) Calcium 8.0 L (8.6-10.8) mg/dL Total Bilirubin 0.3 (0.2-1.2) mg/dL Direct Bilirubin 0.3 (0.0-0.5) mg/dL Indirect Bilirubin 0.0 (0.0-1.2) mg/dL AST 33 (5-34) Units/L ALT 23 (0-55) Units/L Alkaline Phosphatase 213 H (38-126) Units/L Ammonia 26 (18-72) mcmol/L Troponin I (0-0.03) ng/mL B-Natriuretic Peptide (0-100) pg/mL Serum Total Protein 6.3 (6.0-8.3) g/dL Albumin 1.2 L (3.5-5.0) g/dL Globulin 5.1 H (2.4-3.5) g/dL Albumin/Globulin Ratio 0.2 L (1.1-2.2) Urine Color (Yellow) Urine Clarity (Clear) Urine pH (5.0-8.0) pH Units Ur Specific [place] (1.010-1.025) Urine Protein (Neg-Trace) mg/dL Urine Glucose (UA) (Normal) mg/dL Urine Ketones (Negative) mg/dL Urine Blood (Negative) Urine Nitrite (Negative) Urine Bilirubin (Negative) Urine Urobilinogen (Normal) mg/dL Ur Leukocyte Esterase (Negative) Urine Microscopic RBC (0-3) per hpf Urine Microscopic WBC (0-3) per hpf Ur Squamous Epith Cells (None-Few) per lpf Urine Bacteria (None-Few) per hpf Hyaline Casts (None-Few) per lpf Ur Culture Indicated? (NO) Ethyl Alcohol < 10 (0-10) mg/dL 10/09/17 10/09/17 10/09/17 Range/Units 21:33 21:33 21:33 WBC (4.3-11.1) K/mcL RBC (4.19-5.50) M/mcL Hgb (12.9-16.9) g/dL Hct (37.5-50.1) % MCV (83.0-100.0) fL MCH (28.0-33.3) pg MCHC (31.6-35.5) g/dL RDW (11.5-14.5) % Plt Count (140-400) K/mcL MPV (9.4-12.4) fL Immature Gran % (0-4) % Seg Neutrophils % % Lymphocytes % % Monocytes % % Eosinophils % % Basophils % % Neutrophils # (1.6-8.9) K/mcL Lymphocytes # (0.6-4.6) K/mcL Monocytes # (0.0-1.3) K/mcL Eosinophils # (0.0-0.6) K/mcL Basophils # (0.0-0.2) K/mcL Platelet Estimate (Normal) Immature Plt Fraction (1.1-6.1) % PT 10.9 (9.4-12.1) Seconds INR 1.0 VBG pH (7.32-7.42) pH Units VBG pCO2 (41-51) mmHg VBG pO2 (25-50) mmHg VBG HCO3 (21-27) mEq/L Sodium (136-145) mEq/L Potassium (3.5-4.5) mEq/L Chloride (98-109) mEq/L Carbon Dioxide (19-29) mEq/L BUN (8-26) mg/dL Creatinine (0.72-1.25) mg/dL Est GFR ( Amer) (> 60) Est GFR (Non-Af Amer) (> 60) BUN/Creatinine Ratio (6-26) Glucose (70-99) mg/dL Calculated Osmolality (280-300) Calcium (8.6-10.8) mg/dL Total Bilirubin (0.2-1.2) mg/dL Direct Bilirubin (0.0-0.5) mg/dL Indirect Bilirubin (0.0-1.2) mg/dL AST (5-34) Units/L ALT (0-55) Units/L Alkaline Phosphatase (38-126) Units/L Ammonia (18-72) mcmol/L Troponin I 0.09 H* (0-0.03) ng/mL B-Natriuretic Peptide 285 H (0-100) pg/mL Serum Total Protein (6.0-8.3) g/dL Albumin (3.5-5.0) g/dL Globulin (2.4-3.5) g/dL Albumin/Globulin Ratio (1.1-2.2) Urine Color (Yellow) Urine Clarity (Clear) Urine pH (5.0-8.0) pH Units Ur Specific [place] (1.010-1.025) Urine Protein (Neg-Trace) mg/dL Urine Glucose (UA) (Normal) mg/dL Urine Ketones (Negative) mg/dL Urine Blood (Negative) Urine Nitrite (Negative) Urine Bilirubin (Negative) Urine Urobilinogen (Normal) mg/dL Ur Leukocyte Esterase (Negative) Urine Microscopic RBC (0-3) per hpf Urine Microscopic WBC (0-3) per hpf Ur Squamous Epith Cells (None-Few) per lpf Urine Bacteria (None-Few) per hpf Hyaline Casts (None-Few) per lpf Ur Culture Indicated? (NO) Ethyl Alcohol (0-10) mg/dL 10/09/17 10/09/17 Range/Units 21:56 22:09 WBC (4.3-11.1) K/mcL RBC (4.19-5.50) M/mcL Hgb (12.9-16.9) g/dL Hct (37.5-50.1) % MCV (83.0-100.0) fL MCH (28.0-33.3) pg MCHC (31.6-35.5) g/dL RDW (11.5-14.5) % Plt Count (140-400) K/mcL MPV (9.4-12.4) fL Immature Gran % (0-4) % Seg Neutrophils % % Lymphocytes % % Monocytes % % Eosinophils % % Basophils % % Neutrophils # (1.6-8.9) K/mcL Lymphocytes # (0.6-4.6) K/mcL Monocytes # (0.0-1.3) K/mcL Eosinophils # (0.0-0.6) K/mcL Basophils # (0.0-0.2) K/mcL Platelet Estimate (Normal) Immature Plt Fraction (1.1-6.1) % PT (9.4-12.1) Seconds INR VBG pH 7.24 L (7.32-7.42) pH Units VBG pCO2 50 (41-51) mmHg VBG pO2 33 (25-50) mmHg VBG HCO3 22 (21-27) mEq/L Sodium (136-145) mEq/L Potassium (3.5-4.5) mEq/L Chloride (98-109) mEq/L Carbon Dioxide (19-29) mEq/L BUN (8-26) mg/dL Creatinine (0.72-1.25) mg/dL Est GFR ( Amer) (> 60) Est GFR (Non-Af Amer) (> 60) BUN/Creatinine Ratio (6-26) Glucose (70-99) mg/dL Calculated Osmolality (280-300) Calcium (8.6-10.8) mg/dL Total Bilirubin (0.2-1.2) mg/dL Direct Bilirubin (0.0-0.5) mg/dL Indirect Bilirubin (0.0-1.2) mg/dL AST (5-34) Units/L ALT (0-55) Units/L Alkaline Phosphatase (38-126) Units/L Ammonia (18-72) mcmol/L Troponin I (0-0.03) ng/mL B-Natriuretic Peptide (0-100) pg/mL Serum Total Protein (6.0-8.3) g/dL Albumin (3.5-5.0) g/dL Globulin (2.4-3.5) g/dL Albumin/Globulin Ratio (1.1-2.2) Urine Color Dark Yellow (Yellow) Urine Clarity Cloudy A (Clear) Urine pH 6.0 (5.0-8.0) pH Units Ur Specific [place] 1.022 (1.010-1.025) Urine Protein >=300 H (Neg-Trace) mg/dL Urine Glucose (UA) 100 H (Normal) mg/dL Urine Ketones Negative (Negative) mg/dL Urine Blood Moderate H (Negative) Urine Nitrite Negative (Negative) Urine Bilirubin Negative (Negative) Urine Urobilinogen Normal (Normal) mg/dL Ur Leukocyte Esterase Negative (Negative) Urine Microscopic RBC 5-15 H (0-3) per hpf Urine Microscopic WBC 0-3 (0-3) per hpf Ur Squamous Epith Cells Many H (None-Few) per lpf Urine Bacteria None Seen (None-Few) per hpf Hyaline Casts Few (None-Few) per lpf Ur Culture Indicated? NO (NO) Ethyl Alcohol (0-10) mg/dL - Radiology Data Radiology results reviewed: Yes I reviewed the patient's radiology results. - EKG Data EKG #1 EKG attestation: Yes I reviewed and interpreted this EKG. EKG results narrative: Atrial fibrillation with rapid ventricular response. Ventricular rate of 149. QRS 98. QTC 296. Patient has depressions throughout the anterior leads. Unstable baseline throughout secondary to extremity movement. Patient's previous EKG of sinus rhythm on 09/22/17. Critical Care Time Critical Care Time: Yes Total Critical Care Time: 36 Attestation: Hypoxia with respiratory distress and tachycardia. Pressure ventilation required Attestation Statement - Attestation Attestation: Dr. Parson note: Patient was seen in conjunction with the resident Dr. Singh. Please see his charting for complete documentation. I spent [id number] time with the patient and agree with patient's treatment and disposition. Patient's next of kin is his daughter bedside. She admits to a rapid decline outpatient self over the last few weeks and especially the last couple days. 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 He is found down and altered today with low blood sugar and was last known well this morning. He was [facility] home from [facility] last couple weeks is a hospice patient. Patient is not mentating well this time so the next of kin was asked regarding his CODE STATUS which she clarifies his DO NOT RESUSCITATE comfort care, but the patient's daughter requests that we currently do medical evaluation treatment in case he does have a treatable process such as pneumonia. She will then make further clarification of his CODE STATUS which may changed to comfort care only.
[2017-10-09 21:47] LABS: Basophils % 0.1 %; Eosinophils % 0.1 %; Hematocrit 35.9 % (37.5-50.1); Hemoglobin 12.2 g/dL (12.9-16.9); Immature Granulocytes % 1.3 % (0-4); Immature Platelets 3.6 % (1.1-6.1); Lymphocytes # 0.4 K/mcL (0.6-4.6); Lymphocytes % 1.7 %; Mean Corpuscular Hemoglobin 28.3 pg (28.0-33.3); Mean Corpuscular Volume 83.3 fL (83.0-100.0); Monocytes # 0.7 K/mcL (0.0-1.3); Monocytes % 3.1 %; Neutrophils # 19.9 K/mcL (1.6-8.9); Platelet Count 313 K/mcL (140-400); Red Blood Count 4.31 M/mcL (4.19-5.50); Red Cell Distribution Width 14.8 % (11.5-14.5); Segmented Neutrophils % 93.7 %
[2017-10-09 21:50] LABS: Prothrombin Time 10.9 Seconds (9.4-12.1)
[2017-10-09 21:55] LABS: Alanine Aminotransferase 23 Units/L (0-55); Albumin/Globulin Ratio 0.2 (1.1-2.2); Alkaline Phosphatase 213 Units/L (38-126); Aspartate Amino Transferase 33 Units/L (5-34); BUN/Creatinine Ratio 25 (6-26); Bilirubin,Direct 0.3 mg/dL (0.0-0.5); Bilirubin,Total 0.3 mg/dL (0.2-1.2); Blood Urea Nitrogen 28 mg/dL (8-26); Carbon Dioxide 20 mEq/L (19-29); Chloride 110 mEq/L (98-109); Globulin 5.1 g/dL (2.4-3.5); Glucose 148 mg/dL (70-99); Osmolality,Calculated 298 (280-300); Potassium 3.4 mEq/L (3.5-4.5); Sodium 140 mEq/L (136-145); Total Protein 6.3 g/dL (6.0-8.3); eGFR For African Americans > 60 (> 60); eGFR For Non-African Americans > 60 (> 60)
[2017-10-09 21:56] LABS: Albumin 1.2 g/dL (3.5-5.0); Ethanol < 10 mg/dL (0-10)
[2017-10-09 21:57] LABS: Platelet Estimate Normal (Normal)
[2017-10-09 22:04] LABS: Bilirubin,Urine Negative (Negative); Blood,Urine Moderate (Negative); Clarity,Urine Cloudy (Clear); Color,Urine Dark Yellow (Yellow); Glucose,Urine (UA) 100 mg/dL (Normal); Ketones,Urine Negative (Negative); Leukocyte Esterase,Urine Negative (Negative); Nitrite,Urine Negative (Negative); Protein,Urine >=300 mg/dL (Neg-Trace); Specific Gravity,Urine 1.022 (1.010-1.025); Urobilinogen,Urine Normal (Normal)
[2017-10-09 22:08] LABS: Bacteria,Urine None Seen per hpf (None-Few); Hyaline Casts,Urine Few per lpf (None-Few); Squamous Epithelial Cell,Urine Many per lpf (None-Few); WBC,Urine 0-3 per hpf (0-3)
[2017-10-09 22:15] LABS: VBG HCO3 22 mEq/L (21-27); VBG PCO2 50 mmHg (41-51); VBG PH 7.24 pH Units (7.32-7.42); VBG PO2 33 mmHg (25-50)
[2017-10-09] MEDS ORDERED: Levofloxacin 750 MG/150 ML 750 MG/150 ML BAG IVPB ONE (22:51)
[2017-10-09] MEDS ORDERED: Vancomycin 1,000 MG in D5% in Water 250 ML IVPB ONE (22:51)
[2017-10-09] MEDS ORDERED: Piperacillin/Tazobactam 3.375 GM in D5% in Water (Mini-Bag+) 100 ML IVPB ONE (22:51)
[2017-10-10] MEDS ORDERED: Dextrose 50 % in Water (Vial) 100 ML in D5% in 0.45% NACL 1,000 ML IVC SCH (01:15)
[2017-10-10] MEDS ORDERED: *HR* Metoprolol 5 MG/5 ML VIAL IVP ONE ×2 (01:17→01:20)
[2017-10-10] MEDS ORDERED: Ondansetron 4 MG/2 ML VIAL IVP PRN (01:31)
[2017-10-10] MEDS ORDERED: Naloxone 0.4 MG/ML INJ IVP PRN (01:31)
--- NOTE | 2017-10-10 01:58 | Internal Med History&Physical ---
Date of Encounter: 10/10/17 Time of Encounter: 00:55 Assessment and Plan (1) Hypoglycemia Current visit: Yes Status: Acute 1. Will start MIV with Dextrose infusion. 2. Hourly glucose monitoring. 3. Stop home meds (Amaryl) and insulin. (2) Aspiration pneumonia Current visit: Yes Status: Acute 1. Blood cultures obtained in ER. 2. Will keep NPO for now. 3. Consult speech therapy for swallow evaluation. 4. I broached the topic with family about alternative means of nutrition if he remains a high aspiration risk. Further discussions to be made once more information available and palliative care team assesses patient. Qualifiers: Aspiration pneumonia type: unspecified Laterality: right Lung location: lower lobe of lung Qualified Code(s): J69.0 - Pneumonitis due to inhalation of food and vomit (3) Atrial fibrillation with RVR Current visit: Yes Status: Acute 1. Will treat with IV Lopressor for now; if uncontrolled, will star Cardizem drip. 2. Will order ECHO in the morning. 3. Poor candidate for anti-coagulation due to FTT, dementia, fall risk, etc. (4) Failure to thrive in adult Current visit: No Status: Chronic 1. Consult palliative care for assistance and planing for care after discharge. 2. Daughter was informed that patient likely has cancer, but there has been no work up and/or formal diagnosis made. 3. Patient likely unable to return home at discharge unless he truly is Hospice /Comfort Care. I discussed this with family briefly, and they agree. (5) Severe protein-calorie malnutrition Current visit: No Status: Chronic 1. Speech consult to assess swallowing/aspiration risk. 2. Family and patient to consider PEG vs Hospice care if unable to feed safely by mouth. (6) DVT prophylaxis Current visit: No Status: Inactive 1. Heparin SQ. Internal Medicine - H&P: HPI Chief complaint: hypoglycemia; pneumonia Admitted From: Emergency Dept Plans for Post Hospital Care: Transfer Half-Way Facility History of present illness: Mr. Grant is a 72 year old male who was brought into the ER by squad after being found unresponsive by home health aide. His glucose was in the 30s, and he was given glucagon and dextrose by squad. By time of arrival, his glucose was improved in the 120s. By that time, he was arousable and starting to become coherent. Workup in the ER revealed patient have leukocytosis and findings concerning for pneumonia. Family arrived to the bedside in the ER, and they stated patient was recently discharged from [facility] and was enrolled in hospice. However, they were not well- informed about hospice and the goals of care. He has had significant failure to thrive and severe malnutrition over the last few months. Because of rapid decline in health, he was placed in ECF after last hospital stay and was just discharged from ECF recently. His daughter is present at the bedside and was told by one of his physicians that patient likely has underlying malignancy and that no further diagnostic and/or treatment measures should be initiated. Furthermore, he recommended they pursue comfort care measures only. I reviewed his old records and imaging studies but cannot find any diagnosis or findings of malignancy. There was a finding of cirrhosis and small volume ascites on recent imaging of abdomen. He has never been a drinker of alcohol. He has had diabetes and has not followed-up with physician in roughly 20 years until recently. 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 Patient does have a history of schizophrenia since his 20 years ago. He was recently diagnosed with dementia according to the family, but he has been high functioning and caring for himself until recently late this summer. Given his rapid decline in health regarding malnutrition, failure to thrive, and poorly controlled diabetes, I discussed with patient's daughter and 2 granddaughters about the goals of care. Ideally, the family would like the patient to discuss and decide his goals of care. However, if he is unable to do so, then the family would help provide guidance. According to the family, he has had very little oral intake over last several days. There is some concern that he may be aspirating and/or choking on some food intake. There is no history of stroke. Regarding his diabetes, he was initially started on diabetic treatment since his last hospital stay late this summer. Past Med Surg Social Fam HX - Past Medical History Source: old records reviewed, obtained from family Medical history: cirrhosis (suspect MCCARTNEY), dementia, diabetes, hyperlipidemia, hypertension Psychiatric history: schizophrenia - Past Surgical History Surgical History: other (left eye surgery) - Social History Smoking Status: Light tobacco smoker Smokeless Tobacco Status: No Alcohol use: none Drug use: none Current living situation: Home - Independent Additional social history: recently discharged from [facility]CF; home health aides at home now - Family History Mother Living Status: Hx Family Cancer: Yes (breast) Hx Family Neurologic Disorders: Yes (alzheimer/dementia) Father Living Status: Internal Medicine - H&P: Meds Lisinopril [Zestril] 10 mg PO DAILY tab 07/10/17 [Rx] Nicotine Patch [Nicoderm] 21 mg TD DAILY 07/10/17 [Rx] Insulin DETEMIR [Levemir] 30 unit SQ DAILY 09/03/17 [History] Insulin LISPRO [HumaLOG] 0 units SQ TIDWM 09/03/17 [History] 3 Allergy/AdvReac Type Severity Reaction Status Date / Time No Known Allergies Allergy Verified 10/09/17 21:02 ROS unobtainable: due to mental status Review of systems: Review of systems unobtainable as patient is confused and disoriented. Pertinent review systems as noted in history of present illness as provided by his family. - Constitutional Vitals: Temp Pulse Resp BP Pulse Ox 98.4 F 129 20 137/80 92 10/10/17 00:56 10/10/17 00:56 10/10/17 00:56 10/10/17 00:56 10/10/17 00:56 General appearance: Present: A&O X 1, disheveled, mild distress. Absent: answers questions appropriately Exam: patient somnolent but arousable, oriented to self only - Head Head exam: Present: atraumatic, normal inspection - Expanded Head Exam Head exam expanded: Absent: abrasion, contusion, general tenderness - Eye Eye exam: Present: EOMI, PERRL. Absent: scleral icterus Additional comments: left eye deviates laterally (old) -- prior surgery on left eye - ENT ENT exam: Present: mucous membranes dry, normal oropharynx Additional comments: poor dentition - Neck Neck exam general surgery: Present: full ROM, supple. Absent: lymphadenopathy, tenderness, nuchal rigidity - Respiratory Respiratory exam: Present: rales (right base), rhonchi, wheezes (rare). Absent : accessory muscle use, chest wall tenderness, CTAB, respiratory distress - Cardiovascular Cardiovascular exam: Present: distant heart sounds, irregular rhythm, +S1, +S2, tachycardia. Absent: diastolic murmur, systolic murmur - GI/Abdominal GI/Abdominal exam: Present: normal bowel sounds, soft. Absent: guarding, hepatomegaly, mass, rebound, splenomegaly, tenderness - Extremities Exam Extremities exam: Present: pedal edema (1+), warm. Absent: calf tenderness, joint swelling, tenderness Additional comments: pressure ulcer on right foot and ankle - Back Exam Back exam: Absent: CVA tenderness (L), CVA tenderness (R) - Neurological Exam Neurological exam: Present: alert, altered, no focal deficits, strengths equal and symetr throughout. Absent: oriented X3, facial droop, speech deficit - Psychiatric Psychiatric exam: Present: flat affect - Skin Skin exam: Present: dry, warm. Absent: rash Internal Med - H&P Results - Labs CBC & Chem 7: 10/09/17 21:33 10/09/17 21:33 - EKG Data -: EKG Interpreted by Myself - EKG Data Prior EKG available for review: no EKG comments: 10/10/17 02:05 atrial fibrillation with RVR - Diagnostic Studies Chest x-ray Status: image reviewed by me (RLL pneumonia)
[2017-10-10] MEDS ORDERED: Vancomycin 1,000 MG in D5% in Water 250 ML IVPB SCH (02:00)
[2017-10-10] MEDS ORDERED: Ipratropium/Albuterol Neb 3 ML IH PRN (02:03)
[2017-10-10] MEDS ORDERED: Potassium Chloride 20 MEQ, Lidocaine 1% 2 ML in D5% in Water 250 ML IVPB ONE (02:30)
[2017-10-10 03:33] LABS: Basophils % 0.2 %; Eosinophils % 0.1 %; Hematocrit 25.7 % (37.5-50.1); Hemoglobin 8.9 g/dL (12.9-16.9); Immature Granulocytes % 0.2 % (0-4); Immature Platelets 2.3 % (1.1-6.1); Lymphocytes # 0.2 K/mcL (0.6-4.6); Lymphocytes % 1.9 %; Mean Corpuscular HGB Conc 34.6 g/dL (31.6-35.5); Mean Corpuscular Hemoglobin 28.7 pg (28.0-33.3); Mean Corpuscular Volume 82.9 fL (83.0-100.0); Mean Platelet Volume 9.6 fL (9.4-12.4); Monocytes # 0.5 K/mcL (0.0-1.3); Monocytes % 3.6 %; Neutrophils # 12.2 K/mcL (1.6-8.9); Platelet Count 194 K/mcL (140-400); Red Cell Distribution Width 14.8 % (11.5-14.5)
[2017-10-10 03:38] LABS: INR 1.1; Prothrombin Time 12.1 Seconds (9.4-12.1)
[2017-10-10 03:41] LABS: Activated Partial Thrombo Time 26.5 Seconds (26.0-36.0)
[2017-10-10 03:53] LABS: Alanine Aminotransferase 16 Units/L (0-55); Albumin/Globulin Ratio 0.2 (1.1-2.2); Alkaline Phosphatase 135 Units/L (38-126); Aspartate Amino Transferase 21 Units/L (5-34); BUN/Creatinine Ratio 26 (6-26); Bilirubin,Total 0.2 mg/dL (0.2-1.2); Blood Urea Nitrogen 30 mg/dL (8-26); Calcium 6.9 mg/dL (8.6-10.8); Carbon Dioxide 17 mEq/L (19-29); Chloride 113 mEq/L (98-109); Globulin 3.3 g/dL (2.4-3.5); Glucose 104 mg/dL (70-99); Magnesium 1.3 mg/dL (1.6-2.6); Osmolality,Calculated 288 (280-300); Potassium 3.2 mEq/L (3.5-4.5); Sodium 136 mEq/L (136-145); eGFR For African Americans > 60 (> 60); eGFR For Non-African Americans > 60 (> 60)
[2017-10-10 03:54] LABS: Albumin 0.8 g/dL (3.5-5.0); Total Protein 4.1 g/dL (6.0-8.3)
[2017-10-10] MEDS ORDERED: *HR* Heparin 5,000 UNIT/ML VIAL SQ SCH (06:00)
[2017-10-10] MEDS ORDERED: *HR* Metoprolol 5 MG/5 ML VIAL IVP SCH (06:00)
[2017-10-10] MEDS ORDERED: Aminoglycoside Consult 1 EACH MC ONE (09:07)
--- NOTE | 2017-10-10 09:44 | Event Note ---
<[place] - Last Filed: 10/10/17 13:27> Date of Encounter: 10/10/17 Time of Encounter: 09:18 72-year-old male admitted to the hospital early this morning for hypoglycemia, unresponsiveness. Contributory past medical history includes DMII, failure to thrive with severe protein-calorie malnutrition, schizophrenia, HTN. Home health aide called squad when patient was found unresponsive, his glucose was in the 30s and he was given glucagon + dextrose. Upon arrival to the ED blood glucose had increased into 120s and patient's mental status was improving. Leukocytosis of 21.2, CXR showed opacity in the right base atelectasis versus PNA. Patient was recently enrolled in hospice due to failure to thrive and severe malnutrition. According to family, the patient's physician has told him he likely has underlying malignancy and recommended comfort care measures only. Recently diagnosed with dementia, high functioning until several months ago. Patient had not seen a physician in about 20 years and was only recently started on medication for his type 2 diabetes. Mr. Grant was seen and examined at bedside today. He is alert and oriented to self however not very willing to engage in conversation. He denies any pain or other complaints currently ENCEPHALOPATHY Multifactorial: Hypoglycemia, sepsis, hypoxia Patient is also schizophrenic Mental status has been improving HYPOGLYCEMIA Continue dextrose Continue to monitor blood glucose levels Blood glucose currently stable at 104 ASPIRATION PNEUMONIA Patient is receiving vancomycin + Zosyn, will de-escalate Vanco Nothing by mouth Speech therapy has been consulted Leukocytosis significantly improved this morning down from 21 --> 13, likely dilutional ATRIAL FIBRILLATION with RVR Rate better controlled since this morning We will continue IV metoprolol and consider Cardizem drip if necessary Echocardiogram showed basal inferior hypokinesis. We will discuss the case with cardiology FAILURE TO THRIVE Patient is currently a full code. We will discuss goals of care with family and patient if possible. Palliative team has been consulted by Dr. Padgett, appreciate assistance Patient unlikely able to return home upon discharge without hospice/comfort care status. Speech consult to assess swallowing/aspiration risk pending K + on the low side, we will replace DVT PROPHYLAXIS Heparin SQ <Jorge A Saldivar - Last Filed: 10/10/17 15:15> Date of Encounter: 10/10/17 I independently saw and examined this patient on 10/10/17, plan of care is as detailed in the resident physician's documentation Patient is seen and evaluated at the bedside. 72-year-old male with complicated medical history. Patient has a history of diabetes mellitus, and hypertension, schizophrenia and depression. The patient decided to be on home hospice. He is admitted and being managed for sepsis secondary to aspiration pneumonia and acute encephalopathy multi factorial possibly secondary to hypoglycemia, sepsis, suspected myocardial ischemia, atrial fibrillation with rapid ventricular response. Patient is seen and evaluated at the bedside, he is alert and oriented to person only. He follows commands easily able to speak full sentences. No JVD. Abdomen is soft and nontender. Anterior chest auscultation with diffuse rhonchi. Sounds S1-S2, regular, no audible murmurs. No pedal edema Labs and imaging reviewed: Leukocytosis with left shift, stable anemia elevated troponin hypokalemia. Chest x-ray shows pneumonia. No head CT. Echocardiogram done today shows a normal EF with basal inferior wall motion abnormality. Assessment and plan *Sepsis- patient met sepsis criteria with tachycardia, tachypnea, altered mental status, leukocytosis source is pneumonia. Continue Zosyn. Discontinue vancomycin, there is no indication for vancomycin at this time. *Hypoglycemia possibly due to poor oral intake, as well as oral hypoglycemic agents at home. Underlying liver cirrhosis Continue D5 water and discontinue if fingersticks remain persistently between 140-180. *Acute encephalopathy patient is still disoriented, baseline is unknown as patient is only low 90s on home hospice. Aspiration precautions nothing by mouth until evaluation by speech and swallow eval. Fall risk and fall precautions. *Pneumonia, management as in sepsis. *Elevated troponins, suspected myocardial ischemia. Also possibly from demand, however echocardiogram shows regional wall motion abnormality. Given rectal aspirin. Start on heparin drip Consult placed to Cardiology, as the extent of patients wishes for intervention is unknown. Patient is currently altered. *Atrial fibrillation with rapid ventricular response: Heart rate is currently controlled on when necessary IV metoprolol. Plan to change to oral when patient cannot tolerate already. Patient is poor candidate for anticoagulation due to being bedbound poor functional status. Cardiology consulted. *History of liver cirrhosis no imaging evidence of hepatocellular carcinoma on his last abdomen CAT scan. *Schizophrenia continue home medications when patient can tolerate already. Haldol when necessary. Palliative evaluation for goals of care. Rest as in resident physician's documentation above
--- NOTE | 2017-10-10 10:18 | Palliative - Consult Note ---
Date of Encounter: 10/10/17 Time of Encounter: 10:15 - Assessment and Plan (1) Counseling regarding advanced care planning and goals of care Current Visit: Yes Status: Acute Assessment and plan: Long discussion with daughter Margot. Margot currently ill and cannot come in to hospital. She describes that pt and her estranged until last June, since her mother 20 yrs ago. There is no POA. Margot is in touch occasionally with her brother, but he is not as involved in pt situation. States that they found him in June in deplorable condition, and began to assist with his care. He was in [facility] rehab for wound care and discharged home around 10 days ago. Discussed clinical finding thus far, with pending echo and MBS. Discussed artificial nutrition/PEG in event of aspiration. Daughter very stressed and is hoping pt mental status will improve for him to make decision, but understands she is next of kin and may have to decide for him. Tearful on phone. Discussed code status - she states pt had made comments before about being on life support and she believes he would not want any artificial measures. Code status changed to DNR/DNI. She does desire for treatment of pneumonia to continue and see if his mental status improves. I did also discuss with her that he may not be safe to return home alone. Will continue to follow. (2) Failure to thrive in adult Current Visit: No Status: Chronic Assessment and plan: Speech has been consulted. Failed bedside and scheduled for MBS. (3) Aspiration pneumonia Current Visit: Yes Status: Acute Assessment and plan: Continues with treatment with antibiotics, supportive oxygen. MOnitor Qualifiers: Aspiration pneumonia type: unspecified Laterality: right Lung location: lower lobe of lung Qualified Code(s): J69.0 - Pneumonitis due to inhalation of food and vomit Palliative-CN HPI - Data of Consult Requesting Physician: Jorge A Saldivar MD Primary Care Provider: PCP NONE - Consult Narrative History of present illness: Mr. Grant is a 72 year old male CC: Jorge A Saldivar MD Past Med Surg Social Fam HX - Past Medical History Medical history: cancer, diabetes, hyperlipidemia, hypertension, other Psychiatric history: schizophrenia - Past Surgical History Surgical History: other - Social History Smoking Status: Light tobacco smoker Smokeless Tobacco Status: No Alcohol use: none Drug use: none - Family History Mother Living Status: Hx Family Cancer: Yes (breast) Hx Family Neurologic Disorders: Yes (alzheimer/dementia) Father Living Status: Hx Family Psychosocial Disorders: Yes Medications and Allergies Lisinopril [Zestril] 10 mg PO DAILY tab 07/10/17 [Rx] Glimepiride [Amaryl] 2 mg PO QAM 10/10/17 [History] Haloperidol [Haloperidol] 0.5 mg PO BID 10/10/17 [History] 3 Allergy/AdvReac Type Severity Reaction Status Date / Time No Known Allergies Allergy Verified 10/09/17 21:02 ROS unobtainable: due to mental status Palliative Care-Exam - Constitutional Vitals: Temp Pulse Resp BP Pulse Ox 98.1 F 79 26 90/53 95 10/10/17 07:27 10/10/17 07:27 10/10/17 07:27 10/10/17 07:27 10/10/17 07:27 General appearance: Present: mild distress, no acute distress - Head Head Exam: Present: normal inspection, normocephalic - Eye Eye exam: Present: normal appearance, PERRL - Respiratory Additional comments: Occasional rhonchi with inspiration noted anterior chest - Cardiovascular Cardiovascular exam: Present: +S1, +S2 - GI/Abdominal Exam GI/Abdominal exam: Present: normal bowel sounds, soft - Catheter Type: Urethral (Perez) Additional comments: Urine dk jonathan - Extremities Exam Extremities exam: Present: normal capillary refill, normal inspection - Neurological Exam Additional comments: Disoriented, become irritated with questioning. Follow very simple commands. - Skin Skin exam: Present: dry, pallor, warm Internal Medicine - CN: Reslt - Labs CBC & Chem 7: 10/10/17 03:25 10/10/17 03:25 Labs: Short CBC 10/10/17 Range/Units 03:25 WBC 13.0 H (4.3-11.1) K/mcL Hgb 8.9 L D (12.9-16.9) g/dL Hct 25.7 L (37.5-50.1) % Plt Count 194 (140-400) K/mcL Neutrophils # 12.2 H (1.6-8.9) K/mcL BMP 10/10/17 03:25 Sodium 136 Potassium 3.2 L Chloride 113 H Carbon Dioxide 17 L BUN 30 H Creatinine 1.15 Glucose 104 H Calcium 6.9 L Cardiac Enzymes 10/10/17 Range/Units 03:25 Troponin I 0.14 H* (0-0.03) ng/mL Liver Function 10/10/17 Range/Units 03:25 Total Bilirubin 0.2 (0.2-1.2) mg/dL AST 21 (5-34) Units/L ALT 16 (0-55) Units/L Alkaline Phosphatase 135 H (38-126) Units/L Albumin 0.8 L D (3.5-5.0) g/dL - ABG Interpretation ABG results: PT/INR, D-dimer PT 12.1 Seconds (9.4-12.1) 10/10/17 03:25 Consult Discharge Plan - Plan Referrals: NONE,PCP [Primary Care Provider] - Palliative Quality Palliative Quality: Screen for Code Status: NA (Patient confused - awaiting family), Screen for Goals of Care: NA, Screen for Pain: NA, If Pain Regimen Started, Initiate Bowel Regimen: NA, Screen for Nausea/Vomitting: NA
[2017-10-10] MEDS: Piperacillin/Tazobactam 3.375 GM/200 ML BAG IVPB SCH ×2 (10:28→17:13)
[2017-10-10] MEDS ORDERED: *HR* Metoprolol 5 MG/5 ML VIAL IVP PRN (11:17)
[2017-10-10] MEDS ORDERED: Heparin 25,000 UNIT/500 ML D5W 25,000 UNIT/500 ML MLS IVC SCH (15:00)
[2017-10-10] MEDS ORDERED: *HR* Heparin 5,000 UNIT/ML VIAL IVP PRN ×2 (15:00)
[2017-10-10 16:08] LABS: Hematocrit 26.6 % (37.5-50.1)
[2017-10-10 16:14] LABS: Hemoglobin 8.8 g/dL (12.9-16.9)
--- NOTE | 2017-10-10 16:19 | Cardiology Consult Note ---
Date of Encounter: 10/10/17 Time of Encounter: 16:00 Assessment and Plan (1) Elevated troponin Current Visit: Yes Status: Acute Mild troponin elevation at 0.09, 0.15, 0.17. EKG showed atrial fibrillation with RVR and ST depression in the septal anterior leads that is new. TTE shows EF55% and basal inferior wall hypokenesis. No significant valvular disease. Trivial pericardial effusion. Possible NSTEMI. Not a [facility] candidate in the setting of possible CVA, anemia, and multiple co-morbidities, patient is confused. He is a DNRCCA. Plan of care discussed with daughter at bedside who agreed with plan. He denies chest pain or SOB. Recommend asa, statin. No bb due to hypotension. He was initially hypertensive. Add bb when able. Heparin gtt ordered. Recommend holding for now and consider anemia work-up. Hgb noted to drop from 12.2-8.9 over 24 hours. B/p also noted to decrease. Denies active bleeding. (2) Atrial fibrillation with RVR Current Visit: Yes Status: Acute Noted to have atrial fibrillation with RVR on admission. Now NSR. IV lopressor ordered PRN. He is a CHADS VASc 3 for hypertension and HLD. Currently has signs of possible CVA with expressive aphasia and difficulty swallowing. CT negative for acute CVA. Consider neurology consult. He is high risk for CVA. He is documented to have fall risk. He also has acute anemia. Will hold off for now until further work-up. Discussion w patient/family: The assessment and plan as outlined above was discussed with the patient and/or family members who expressed understanding and agreement. All questions were answered. Thank you for involving us in the care of your patient. Please call with any questions. History of Present Illness Consult date: 10/10/17 Requesting physician: Jorge A Saldivar Consult reason: Elevated troponin, abnormal echo Chief complaint: syncope, expressive aphasia History of present illness: Mr. Grant is a 72 year old male with a past medical history of DM type II, HTN , HLD, MCCARTNEY, failure to thrive, and schizophrenia. He presented by EMS after being found down at home by a home health aid. He was recently discharge from and F with home health/hospice. He was at the [facility] after being hospitalized for a foot ulcer. While in the EMS he was found to have a blood sugar of 30 and responded to glucose injection. He was noted to have difficulty speaking and swallowing since that time. CT of the head was ordered. He is also found to have new diagnosis of atrial fibrillation with RVR and aspiration pneumonia. Cardiology is consulted for elevated troponin and abnormal echocardiogram. As of note patient is confused and he is noted to have difficulty speaking. Daughter at bedside but is unable to provide much detail to health history. Patient and daughter deny that patient experienced recent chest pain, SOB, or other CV symptoms. Past Med Surg Social Fam HX - Past Medical History Source: old records reviewed, obtained from family Medical history: cancer, diabetes, hyperlipidemia, hypertension, other Psychiatric history: schizophrenia - Past Surgical History Surgical History: other - Social History Smoking Status: Light tobacco smoker Smokeless Tobacco Status: No Alcohol use: none Drug use: none - Family History Mother Living Status: Hx Family Cancer: Yes (breast) Hx Family Neurologic Disorders: Yes (alzheimer/dementia) Father Living Status: Hx Family Psychosocial Disorders: Yes Medications and Allergies Lisinopril [Zestril] 10 mg PO DAILY tab 07/10/17 [Rx] Glimepiride [Amaryl] 2 mg PO QAM 10/10/17 [History] Haloperidol [Haloperidol] 0.5 mg PO BID 10/10/17 [History] 3 Allergy/AdvReac Type Severity Reaction Status Date / Time No Known Allergies Allergy Verified 10/09/17 21:02 All Systems Review: A 10-system review of systems was performed and is negative for pertinent findings except as documented above in the HPI. Physical Examination Vital Signs Temp Pulse Resp BP Pulse Ox 10/10/17 11: 97.8 F 76 25 101/63 96 10/10/17 07:27 98.1 F 79 26 90/53 95 10/10/17 03:56 98.0 F 95 17 107/62 95 10/10/17 00:56 98.4 F 129 20 137/80 92 10/09/17 23:43 114 14 145/91 100 10/09/17 23:06 113 16 133/80 100 10/09/17 22:38 119 16 179/98 100 10/09/17 22:26 122 18 180/107 100 10/09/17 22:05 136 16 153/113 100 10/09/17 21:44 132 18 146/98 90 10/09/17 21:34 30 99 10/09/17 21:10 90 10/09/17 21:02 98.7 F 137 27 175/109 93 Intake and Output 10/10/17 10/10/17 10/10/17 07:59 15:59 23:59 Intake Total 120 / 120 0 / 0 Output Total 1200 / 1200 0 / 0 Balance -1080 / -1080 0 / 0 Intake: IV Fluids 120 / 120 Levaquin Premix 750mg/150 mL 120 / 120 750 mg In 150 ml @ 100 mls/hr IVPB ONCE ONE Rx#:[id number] Oral 0 / 0 0 / 0 Output: Urine 0 / 0 Catheter 1200 / 1200 Other: Stool Size Moderate Large Stool Consistency soft loose Stool Characteristics Normal for Patient Stool Color Brown Brown # Bowel Movement Diapers 1 Weight 63.2 kg Blood Glucose* 155 181 Patient Weight 10/10/17 23:59 Weight 63.2 kg General: No Apparent Distress, Other HEENT: Atraumatic, Normocephaly, Mucus Membranes Moist Neck: No JVD, Normal carotid pulses Cardiac: Reg Rate and Rhythm, Normal S1 and S2, No Murmur Lungs: Normal Breath Sounds, No Wheeze, Rales, Rhonchi Neuro: Alert and responsive, No focal deficits noted Abdomen: Soft, Non-Tender Skin: No rashes noted on visualized skin Musculoskeletal: No Chest Wall Tenderness Extremities: No Clubbing, No Cyanosis, No Edema, Normal Pulses Results 10/10/17 03:25 10/10/17 03:25 Lab Results 10/10/17 10/10/17 10/10/17 03:25 03:25 03:25 WBC 13.0 H Hgb 8.9 L D Hct 25.7 L Plt Count 194 INR 1.1 APTT 26.5 Sodium Potassium Chloride Carbon Dioxide BUN Creatinine Glucose Calcium Magnesium Total Bilirubin AST ALT Alkaline Phosphatase Troponin I 0.14 H* 10/10/17 10/10/17 03:25 10:14 WBC Hgb Hct Plt Count INR APTT Sodium 136 Potassium 3.2 L Chloride 113 H Carbon Dioxide 17 L BUN 30 H Creatinine 1.15 Glucose 104 H Calcium 6.9 L Magnesium 1.3 L Total Bilirubin 0.2 AST 21 ALT 16 Alkaline Phosphatase 135 H Troponin I 0.17 H* - Imaging and Cardiology Echo: report reviewed - EKG Interpretation EKG results cardiology: personally reviewed Consult Discharge Plan - Plan Referrals: NONE,PCP [Primary Care Provider] -
--- NOTE | 2017-10-10 17:21 | Event Note ---
Date of Encounter: 10/10/17 Time of Encounter: 17:10 Patient currently awake and alert. Can state name and knows he is in hospital. States the month is september. When told "it is October first", he states "close enough". Discussed clinical issues with patient regarding his swallowing. When asked if he would want feeding tube placed, he adamantly yells "No!". This was witnessed by pt primary nurse and he had previously the same response for her. Attempted to call daughter Margot with update, had to leave message.
--- NOTE | 2017-10-10 17:39 | Electrocardiograph Report ---
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
[2017-10-10] MEDS: *HR* Heparin 5,000 UNIT/ML VIAL SQ SCH (21:58)
[2017-10-10] MEDS ORDERED: Levofloxacin 500 MG/100 ML 500 MG/100 ML BAG IVPB SCH (23:00)
[2017-10-10] MEDS: Levofloxacin 750 MG/150 ML 750 MG/150 ML BAG IVPB SCH (23:40)
[2017-10-11] MEDS ORDERED: Vancomycin 1,000 MG in D5% in Water 250 ML IVPB SCH (01:00)
[2017-10-11] MEDS: Piperacillin/Tazobactam 3.375 GM/200 ML BAG IVPB SCH ×3 (02:51→17:43)
[2017-10-11] MEDS ORDERED: Haloperidol Lactate 5 MG/ML VIAL IM ONE (04:32)
--- NOTE | 2017-10-11 08:40 | Palliative Progress Note ---
<TibradySachin mayo - Last Filed: 10/11/17 09:15> Date of Encounter: 10/11/17 Time of Encounter: 08:38 - Assessment and plan (1) Counseling regarding advanced care planning and goals of care Current Visit: Yes Status: Acute Assessment and plan: - Pt appears more alert than yesterday per previous note. - Oriented to self and states location is a house in [place]. [facility] for date. - Daughter was contacted yesterday and states code status is [id number] at this time - Daughter has flu and only granddaughter is present at bedside. - Pt asked about feeding tube and he states he does not want it, granddaughter is unsure of daughter's decision - Pt appears able to make his own decisions at this time. Will honor his wishes and attempt to speak with daughter, next of kin. (2) Severe protein-calorie malnutrition Current Visit: Yes Status: Chronic Assessment and plan: - Reports of poor home care. - Pt refusing feeding tube at this time. (3) Aspiration pneumonia Current Visit: Yes Status: Acute Assessment and plan: - No complaints of pain, SOB. - Further management per primary team Qualifiers: Aspiration pneumonia type: unspecified Laterality: right Lung location: lower lobe of lung Qualified Code(s): J69.0 - Pneumonitis due to inhalation of food and vomit (4) Generalized pain Current Visit: Yes Status: Acute Assessment and plan: - Denies pain at this time. - Time Spent With Patient Total time spent is greater than 50% in coordination of care (as documented) at patient's floor/unit and/or counseling patient: - Constitutional Vitals: Abnormal lab results WBC 13.0 K/mcL (4.3-11.1) H 10/10/17 03:25 RBC 3.10 M/mcL (4.19-5.50) L 10/10/17 03:25 Hgb 8.8 g/dL (12.9-16.9) L 10/10/17 16:01 Hct 26.6 % (37.5-50.1) L 10/10/17 16:01 MCV 82.9 fL (83.0-100.0) L 10/10/17 03:25 RDW 14.8 % (11.5-14.5) H 10/10/17 03:25 Neutrophils # 12.2 K/mcL (1.6-8.9) H 10/10/17 03:25 Lymphocytes # 0.2 K/mcL (0.6-4.6) L 10/10/17 03:25 VBG pH 7.24 pH Units (7.32-7.42) L 10/09/17 22:09 Potassium 3.2 mEq/L (3.5-4.5) L 10/10/17 03:25 Chloride 113 mEq/L (98-109) H 10/10/17 03:25 Carbon Dioxide 17 mEq/L (19-29) L 10/10/17 03:25 BUN 30 mg/dL (8-26) H 10/10/17 03:25 Glucose 104 mg/dL (70-99) H 10/10/17 03:25 POC Glucose 161 (58-89) H 10/10/17 16:24 Calcium 6.9 mg/dL (8.6-10.8) L 10/10/17 03:25 Magnesium 1.3 mg/dL (1.6-2.6) L 10/10/17 03:25 Alkaline Phosphatase 135 Units/L (38-126) H 10/10/17 03:25 Troponin I 0.17 ng/mL (0-0.03) H* 10/10/17 10:14 B-Natriuretic Peptide 285 pg/mL (0-100) H 10/09/17 21:33 Serum Total Protein 4.1 g/dL (6.0-8.3) L D 10/10/17 03:25 Albumin 0.8 g/dL (3.5-5.0) L D 10/10/17 03:25 Albumin/Globulin Ratio 0.2 (1.1-2.2) L 10/10/17 03:25 Urine Clarity Cloudy (Clear) A 10/09/17 21:56 Urine Protein >=300 mg/dL (Neg-Trace) H 10/09/17 21:56 Urine Glucose (UA) 100 mg/dL (Normal) H 10/09/17 21:56 Urine Blood Moderate (Negative) H 10/09/17 21:56 Urine Microscopic RBC 5-15 per hpf (0-3) H 10/09/17 21:56 Ur Squamous Epith Cells Many per lpf (None-Few) H 10/09/17 21:56 General appearance: Present: average body habitus, cooperative Exam: Mild confusion. Delayed answers but answers appropriately. Pt refusing blood draws and physical exam. - Head Head exam: Present: atraumatic, normal inspection, normocephalic Palliative Quality Palliative Quality: Screen for Code Status: Yes, Screen for Goals of Care: Yes, Screen for Pain: Yes, If Pain Regimen Started, Initiate Bowel Regimen: NA, Screen for Nausea/Vomitting: Yes Code Status: 10/10/17 13:09 DNR [Resuscitation Status: Active] [RES] Routine Comment: Resuscitation Status: [id number] - Labs CBC & Chem 7: 10/10/17 16:01 10/10/17 03:25 Labs: Laboratory Results - last 24 hr 10/10/17 10/10/17 10/10/17 10:14 10:23 11:19 Hgb Hct APTT POC Glucose 221 H 215 H Troponin I 0.17 H* 10/10/17 10/10/17 10/10/17 13:43 14:31 16:01 Hgb 8.8 L Hct 26.6 L APTT POC Glucose 193 H 181 H Troponin I 10/10/17 10/10/17 16:01 16:24 Hgb Hct APTT 27.7 POC Glucose 161 H Troponin I - Impressions Impressions Echocardiogram 10/10/17 02:17 Impressions: LVEF 55%. Normal LV chamber size, wall thickness and overall function. Basal inferior hypokinesis noted in the apical 2-chamber view. Mild left ventricular diastolic dysfunction. Normal right ventricular structure and function. Unable to estimate RVSP due to lack of TR jet. There is a trivial pericardial effusion present. No significant valvular dysfunction. Left Ventricular Wall Motion: Rest Echo Findings The basal inferior wall was hypokinetic. All other wall segments showed normal motion. Findings: Study Quality * Technically adequate exam. ECG Findings * Sinus rhythm with BBB. Left Ventricle * LVEF 55%. * Normal LV chamber size, wall thickness and overall function. * Mild left ventricular diastolic dysfunction. * Basal inferior hypokinesis noted in the apical 2-chamber view. Right Ventricle * Normal right ventricular structure and function. Left Atrium * Mildly dilated left atrium. Right Atrium * Normal right atrial size. Interatrial Septum * No evidence of PFO by color Doppler. Aortic Valve * Aortic valve not well visualized. * Grossly, calcified aortic valve leaflets. * No aortic regurgitation. * No aortic stenosis. Mitral Valve * Mildly thickened mitral valve leaflets. * No mitral regurgitation. * No mitral stenosis. Tricuspid Valve * Normal tricuspid valve structure and function. * No tricuspid regurgitation. * Unable to estimate RVSP due to lack of TR jet. Pulmonic Valve * Pulmonic valve not well visualized. Aorta * Normally sized aortic root. Pericardium * There is a trivial pericardial effusion present. IVC * Normal IVC dimensions and inspiratory collapse. Pulmonary Artery * Normal visualized portions of the main pulmonary artery. Videofluoroscopic Swallow 10/10/17 11:31 IMPRESSION: Prolonged oral phase with significant vallecular residue. Patient is at risk for aspiration. Please see separate speech pathology report for full discussion of findings and recommendations. D/ / Gonzales Braden MD / Gonzales Braden MD Interpreting Provider: Gonzales Braden MD Head CT 10/10/17 14:34 IMPRESSION: No acute intracranial abnormality. Moderate chronic small vessel ischemic disease within the periventricular white matter. Small area of encephalomalacia within the high right frontal lobe near the convexity. D/ / 10/10/2017 15:28:59 Lukas Benson MD / tracy Interpreting Provider: Lukas Benson MD - ABG Interpretation ABG results: PT/INR, D-dimer PT 12.1 Seconds (9.4-12.1) 10/10/17 03:25 Consult Discharge Plan - Plan Referrals: NONE,PCP [Primary Care Provider] - <Marin Polanco - Last Filed: 10/11/17 09:36> Date of Encounter: 10/11/17 - Time Spent With Patient Total time spent is greater than 50% in coordination of care (as documented) at patient's floor/unit and/or counseling patient: - Constitutional Vitals: Abnormal lab results WBC 13.0 K/mcL (4.3-11.1) H 10/10/17 03:25 RBC 3.10 M/mcL (4.19-5.50) L 10/10/17 03:25 Hgb 8.8 g/dL (12.9-16.9) L 10/10/17 16:01 Hct 26.6 % (37.5-50.1) L 10/10/17 16:01 MCV 82.9 fL (83.0-100.0) L 10/10/17 03:25 RDW 14.8 % (11.5-14.5) H 10/10/17 03:25 Neutrophils # 12.2 K/mcL (1.6-8.9) H 10/10/17 03:25 Lymphocytes # 0.2 K/mcL (0.6-4.6) L 10/10/17 03:25 VBG pH 7.24 pH Units (7.32-7.42) L 10/09/17 22:09 Potassium 3.2 mEq/L (3.5-4.5) L 10/10/17 03:25 Chloride 113 mEq/L (98-109) H 10/10/17 03:25 Carbon Dioxide 17 mEq/L (19-29) L 10/10/17 03:25 BUN 30 mg/dL (8-26) H 10/10/17 03:25 Glucose 104 mg/dL (70-99) H 10/10/17 03:25 POC Glucose 161 (58-89) H 10/10/17 16:24 Calcium 6.9 mg/dL (8.6-10.8) L 10/10/17 03:25 Magnesium 1.3 mg/dL (1.6-2.6) L 10/10/17 03:25 Alkaline Phosphatase 135 Units/L (38-126) H 10/10/17 03:25 Troponin I 0.17 ng/mL (0-0.03) H* 10/10/17 10:14 B-Natriuretic Peptide 285 pg/mL (0-100) H 10/09/17 21:33 Serum Total Protein 4.1 g/dL (6.0-8.3) L D 10/10/17 03:25 Albumin 0.8 g/dL (3.5-5.0) L D 10/10/17 03:25 Albumin/Globulin Ratio 0.2 (1.1-2.2) L 10/10/17 03:25 Urine Clarity Cloudy (Clear) A 10/09/17 21:56 Urine Protein >=300 mg/dL (Neg-Trace) H 10/09/17 21:56 Urine Glucose (UA) 100 mg/dL (Normal) H 10/09/17 21:56 Urine Blood Moderate (Negative) H 10/09/17 21:56 Urine Microscopic RBC 5-15 per hpf (0-3) H 10/09/17 21:56 Ur Squamous Epith Cells Many per lpf (None-Few) H 10/09/17 21:56 - Attending Attestation I examined this patient and my medical decision-making was reviewed with the Resident Physician. I agree with the documented findings, disposition and treatment plan as described except to the extent set forth below. Palliative Quality Code Status: 10/10/17 13:09 DNR [Resuscitation Status: Active] [RES] Routine Comment: Resuscitation Status: [id number] - Labs CBC & Chem 7: 10/10/17 16:01 10/10/17 03:25 Labs: Laboratory Results - last 24 hr 10/10/17 10/10/17 10/10/17 10:14 10:23 11:19 Hgb Hct APTT POC Glucose 221 H 215 H Troponin I 0.17 H* 10/10/17 10/10/17 10/10/17 13:43 14:31 16:01 Hgb 8.8 L Hct 26.6 L APTT POC Glucose 193 H 181 H Troponin I 10/10/17 10/10/17 16:01 16:24 Hgb Hct APTT 27.7 POC Glucose 161 H Troponin I - Impressions Impressions Echocardiogram 10/10/17 02:17 Impressions: LVEF 55%. Normal LV chamber size, wall thickness and overall function. Basal inferior hypokinesis noted in the apical 2-chamber view. Mild left ventricular diastolic dysfunction. Normal right ventricular structure and function. Unable to estimate RVSP due to lack of TR jet. There is a trivial pericardial effusion present. No significant valvular dysfunction. Left Ventricular Wall Motion: Rest Echo Findings The basal inferior wall was hypokinetic. All other wall segments showed normal motion. Findings: Study Quality * Technically adequate exam. ECG Findings * Sinus rhythm with BBB. Left Ventricle * LVEF 55%. * Normal LV chamber size, wall thickness and overall function. * Mild left ventricular diastolic dysfunction. * Basal inferior hypokinesis noted in the apical 2-chamber view. Right Ventricle * Normal right ventricular structure and function. Left Atrium * Mildly dilated left atrium. Right Atrium * Normal right atrial size. Interatrial Septum * No evidence of PFO by color Doppler. Aortic Valve * Aortic valve not well visualized. * Grossly, calcified aortic valve leaflets. * No aortic regurgitation. * No aortic stenosis. Mitral Valve * Mildly thickened mitral valve leaflets. * No mitral regurgitation. * No mitral stenosis. Tricuspid Valve * Normal tricuspid valve structure and function. * No tricuspid regurgitation. * Unable to estimate RVSP due to lack of TR jet. Pulmonic Valve * Pulmonic valve not well visualized. Aorta * Normally sized aortic root. Pericardium * There is a trivial pericardial effusion present. IVC * Normal IVC dimensions and inspiratory collapse. Pulmonary Artery * Normal visualized portions of the main pulmonary artery. Videofluoroscopic Swallow 10/10/17 11:31 IMPRESSION: Prolonged oral phase with significant vallecular residue. Patient is at risk for aspiration. Please see separate speech pathology report for full discussion of findings and recommendations. D/ / Gonzales Braden MD / Gonzales Braden MD Interpreting Provider: Gonzales Braden MD Head CT 10/10/17 14:34
[2017-10-11] MEDS: Haloperidol Lactate 5 MG/ML VIAL IVP SCH ×2 (09:30→21:08)
[2017-10-11] MEDS: *HR* Heparin 5,000 UNIT/ML VIAL SQ SCH ×2 (09:32→17:43)
--- NOTE | 2017-10-11 11:03 | Internal Med Progress Note ---
Date of Encounter: 10/11/17 Time of Encounter: 11:01 - Assessment and plan (1) Hypertension Current Visit: Yes Status: Chronic Assessment and plan: Metoprolol IV prn Patient is NPO Qualifiers: Hypertension type: essential hypertension Qualified Code(s): I10 - Essential (primary) hypertension (2) DMII (diabetes mellitus, type 2) Current Visit: Yes Status: Chronic Assessment and plan: possibly due to poor oral intake, as well as oral hypoglycemic agents at home. Underlying liver cirrhosis FS acceptable, no insulin. A1C ordered, patient refused labs Qualifiers: Diabetes mellitus complication status: with hyperglycemia Diabetes mellitus care home insulin use: without intermission coordinator use Qualified Code(s): E11.65 - Type 2 diabetes mellitus with hyperglycemia (3) Schizophrenia Current Visit: Yes Status: Chronic Assessment and plan: EMIR haldol bid May need psych eval if patient continues to be violent Qualifiers: Schizophrenia type: disorganized schizophrenia Qualified Code(s): F20.1 - Disorganized schizophrenia (4) Severe protein-calorie malnutrition Current Visit: Yes Status: Chronic Assessment and plan: Speech eval noted Patient has refused artifical forms of feeding in the past, refused same this time Keep NPO Continue to monitor (5) Acute metabolic encephalopathy Current Visit: Yes Status: Acute Assessment and plan: Awake, oriented X2 at this time. Aspiration precautions , Fall risk and fall precautions. (6) Aspiration pneumonia Current Visit: Yes Status: Acute Assessment and plan: Continue Zosyn Failed HEAD GOLF PROFESSIONAL eval MBS showed risk of aspiration Speech eval noted Patient refused PEG tube placement He is currentlt disoriented, assess decision making capacity when patient is oriented and may defer to family as well Appreciate palliative care input Qualifiers: Aspiration pneumonia type: unspecified Laterality: right Lung location: lower lobe of lung Qualified Code(s): J69.0 - Pneumonitis due to inhalation of food and vomit (7) Atrial fibrillation with RVR Current Visit: Yes Status: Acute Assessment and plan: Heart rate is currently controlled on when necessary IV metoprolol. Plan to change to oral when patient cannot tolerate already. Patient is poor candidate for anticoagulation due to being bedbound poor functional status. Cardiology eval appreciated. No heparin due to acute drop in HB , patient refused labs today. Not able to take po, continue rectal ASA, BB IV, statin when able to take po (8) Elevated troponin Current Visit: Yes Status: Acute Assessment and plan: As above, suspected myocardial ischemia. Also possibly from demand, however echocardiogram shows regional wall motion abnormality. - Subjective Interval history: Seen and evaluated at bedside with his granddaughter He was combative for most of the night PEr palliative eval, patient declined PEG placement Speech eval noted He is sleeping inbetween eval due to haldol , speaks full sentences during my eval and he is calm at this time We will place a sitter at his bedside as he is a fall risk PTOT eval for d/c dispo, patient cannot live by himself He is also refusing labs and vitals and attempting to hit staff - Constitutional Vitals: Temp Pulse Resp BP Pulse Ox 97.6 F 97 18 156/77 97 10/11/17 07:09 10/11/17 07:09 10/11/17 07:09 10/11/17 07:09 10/11/17 07:09 General appearance: Present: cachectic, A&O X 1, disheveled. Absent: cooperative, pleasant, answers questions appropriately - Head Head exam: Present: atraumatic, normocephalic - Eye Eye exam: Present: PERRL, conjuntiva pink, sclera anicteric Pupils: Present: PERRL - Neck Neck exam general surgery: Present: supple, trachea midline. Absent: lymphadenopathy - Respiratory Respiratory exam: Present: rhonchi. Absent: accessory muscle use, rales, wheezes - Cardiovascular Cardiovascular exam: Present: RRR, +S1, +S2. Absent: diastolic murmur, gallop, rubs, systolic murmur - GI/Abdominal GI/Abdominal exam: Present: normal bowel sounds, soft, no peritoneal signs. Absent: distended, tenderness - Extremities Exam Extremities exam: Present: warm, radial pulses palpable and symmetrical. Absent : calf tenderness, cyanotic, pedal edema - Neurological Exam Neurological exam: Present: alert, CN II-XII intact, no focal deficits. Absent : oriented X3, pronater drift, facial droop, speech deficit - Skin Skin exam: Present: dry Internal Medicine: Result - Labs CBC & Chem 7: 10/10/17 16:01 10/10/17 03:25 Labs: Short CBC 10/10/17 Range/Units 16:01 Hgb 8.8 L (12.9-16.9) g/dL Hct 26.6 L (37.5-50.1) % - ABG Interpretation ABG results: PT/INR, D-dimer PT 12.1 Seconds (9.4-12.1) 10/10/17 03:25 - Impressions Impressions Echocardiogram 10/10/17 02:17 Impressions: LVEF 55%. Normal LV chamber size, wall thickness and overall function. Basal inferior hypokinesis noted in the apical 2-chamber view. Mild left ventricular diastolic dysfunction. Normal right ventricular structure and function. Unable to estimate RVSP due to lack of TR jet. There is a trivial pericardial effusion present. No significant valvular dysfunction. Left Ventricular Wall Motion: Rest Echo Findings The basal inferior wall was hypokinetic. All other wall segments showed normal motion. Findings: Study Quality * Technically adequate exam. ECG Findings * Sinus rhythm with BBB. Left Ventricle * LVEF 55%. * Normal LV chamber size, wall thickness and overall function. * Mild left ventricular diastolic dysfunction. * Basal inferior hypokinesis noted in the apical 2-chamber view. Right Ventricle * Normal right ventricular structure and function. Left Atrium * Mildly dilated left atrium. Right Atrium * Normal right atrial size. Interatrial Septum * No evidence of PFO by color Doppler. Aortic Valve * Aortic valve not well visualized. * Grossly, calcified aortic valve leaflets. * No aortic regurgitation. * No aortic stenosis. Mitral Valve * Mildly thickened mitral valve leaflets. * No mitral regurgitation. * No mitral stenosis. Tricuspid Valve * Normal tricuspid valve structure and function. * No tricuspid regurgitation. * Unable to estimate RVSP due to lack of TR jet. Pulmonic Valve * Pulmonic valve not well visualized. Aorta * Normally sized aortic root. Pericardium * There is a trivial pericardial effusion present. IVC * Normal IVC dimensions and inspiratory collapse. Pulmonary Artery * Normal visualized portions of the main pulmonary artery. Videofluoroscopic Swallow 10/10/17 11:31 IMPRESSION: Prolonged oral phase with significant vallecular residue. Patient is at risk for aspiration. Please see separate speech pathology report for full discussion of findings and recommendations. D/ / Gonzales Braden MD / Gonzales Braden MD Interpreting Provider: Gonzales Braden MD Head CT 10/10/17 14:34 IMPRESSION: No acute intracranial abnormality. Moderate chronic small vessel ischemic disease within the periventricular white matter. Small area of encephalomalacia within the high right frontal lobe near the convexity. D/ / 10/10/2017 15:28:59 Lukas Benson MD / tracy Interpreting Provider: Lukas Benson MD Consult Discharge Plan - Plan Referrals: NONE,PCP [Primary Care Provider] -
--- NOTE | 2017-10-11 14:20 | Cardiology Progress Note ---
Date of Encounter: 10/11/17 Time of Encounter: 14:17 Assessment and Plan (1) Elevated troponin Current Visit: Yes Status: Acute Mild troponin elevation at 0.09, 0.15, 0.17. EKG showed atrial fibrillation with RVR and ST depression in the septal anterior leads that is new. TTE shows EF55% and basal inferior wall hypokenesis. No significant valvular disease. Trivial pericardial effusion. Possible NSTEMI. Not a LHC candidate in the setting of possible CVA, anemia, and multiple co-morbidities. Patient is unable to swallow and is refusing feeding tube. He is a DNRCCA. Plan of care discussed with daughter at bedside who voiced understanding of plan. He denies chest pain or SOB. Recommend asa, statin. Add low dose beta lew. Heparin gtt was not started due to anemia. Recommend holding for now and consider anemia work-up. No further cardiac testing. Cardiology will sign off. Call with questions. (2) Atrial fibrillation with RVR Current Visit: Yes Status: Acute Noted to have atrial fibrillation with RVR on admission. Now NSR. IV lopressor ordered PRN. Add low dose beta-lew. Increase as needed. He is a CHADS VASc 3. He is a poor candidate for AC due to anemia, risk for falls, and inability to swallow. He refused labs and feeding tube today. Palliative care following. Discussion w patient/family: The assessment and plan as outlined above was discussed with the patient and/or family members who expressed understanding and agreement. All questions were answered. Thank you for involving us in the care of your patient. Please call with any questions. Subjective Principal diagnosis: Elevated troponin Interval history: Mr. Grant is alert. He is non-conversational on my exam. Sitter at his bedside to prevent fall. Objective Vital Signs, Last 4 Hours Temp Pulse Resp BP Pulse Ox 10/11/17 11:20 97.6 F 100 18 147/80 99 General: No Apparent Distress HEENT: Atraumatic, Normocephaly, Mucus Membranes Moist Neck: No JVD, Normal carotid pulses Cardiac: Reg Rate and Rhythm, Normal S1 and S2, No Murmur Lungs: Normal Breath Sounds, No Wheeze, Rales, Rhonchi Neuro: Alert and responsive, Other (left eye droop unchanged) Abdomen: Soft, Non-Tender Skin: No rashes noted on visualized skin Musculoskeletal: No Chest Wall Tenderness Extremities: No Clubbing, No Cyanosis, No Edema, Normal Pulses Results 10/10/17 16:01 10/10/17 03:25 Lab Results 10/10/17 10/10/17 16:01 16:01 Hgb 8.8 L Hct 26.6 L APTT 27.7 - Imaging and Cardiology Echo: report reviewed - EKG Interpretation EKG results cardiology: personally reviewed Consult Discharge Plan - Plan Referrals: NONE,PCP [Primary Care Provider] -
[2017-10-11] MEDS: Levofloxacin 750 MG/150 ML 750 MG/150 ML BAG IVPB SCH (23:25)
[2017-10-12] MEDS: Piperacillin/Tazobactam 3.375 GM/200 ML BAG IVPB SCH ×3 (01:47→17:27)
[2017-10-12] MEDS: *HR* Heparin 5,000 UNIT/ML VIAL SQ SCH ×2 (06:12→17:27)
--- NOTE | 2017-10-12 08:23 | Palliative Progress Note ---
<Sachin Perez - Last Filed: 10/12/17 08:29> Date of Encounter: 10/12/17 Time of Encounter: 08:22 - Assessment and plan (1) Counseling regarding advanced care planning and goals of care Current Visit: Yes Status: Acute Assessment and plan: - Pt continues to be pleasant, alert, oriented. - Oriented to self and states location is a hospital in [place], is able to work out the date. - Code status remains [id number] at this time - Pt is NPO for failing swallow eval and is refusing feeding tube at this time. - Pt appears able to make his own decisions at this time. Will honor his wishes and attempt to speak with daughter, next of kin. (2) Severe protein-calorie malnutrition Current Visit: Yes Status: Chronic Assessment and plan: - Reports of poor home care. - Pt refusing feeding tube at this time. - Granddaughter and nurse had discussion yesterday regarding benefits of feeding tube and pt continues to refuse. (3) Aspiration pneumonia Current Visit: Yes Status: Acute Assessment and plan: - No complaints of pain, SOB. - Further management per primary team Qualifiers: Aspiration pneumonia type: unspecified Laterality: right Lung location: lower lobe of lung Qualified Code(s): J69.0 - Pneumonitis due to inhalation of food and vomit (4) Generalized pain Current Visit: Yes Status: Acute Assessment and plan: - Denies pain at this time. - Time Spent With Patient Total time spent is greater than 50% in coordination of care (as documented) at patient's floor/unit and/or counseling patient: 25 - 35 minutes - Subjective Interval history: Pt seen and examined at bedside. He states that he is feeling well with no complaints. His continues to be AOx3. He denies any pain, nausea, difficulty breathing. No family present at bedside. - Constitutional Vitals: Abnormal lab results WBC 13.0 K/mcL (4.3-11.1) H 10/10/17 03:25 RBC 3.10 M/mcL (4.19-5.50) L 10/10/17 03:25 Hgb 8.8 g/dL (12.9-16.9) L 10/10/17 16:01 Hct 26.6 % (37.5-50.1) L 10/10/17 16:01 MCV 82.9 fL (83.0-100.0) L 10/10/17 03:25 RDW 14.8 % (11.5-14.5) H 10/10/17 03:25 Neutrophils # 12.2 K/mcL (1.6-8.9) H 10/10/17 03:25 Lymphocytes # 0.2 K/mcL (0.6-4.6) L 10/10/17 03:25 VBG pH 7.24 pH Units (7.32-7.42) L 10/09/17 22:09 Potassium 3.2 mEq/L (3.5-4.5) L 10/10/17 03:25 Chloride 113 mEq/L (98-109) H 10/10/17 03:25 Carbon Dioxide 17 mEq/L (19-29) L 10/10/17 03:25 BUN 30 mg/dL (8-26) H 10/10/17 03:25 Glucose 104 mg/dL (70-99) H 10/10/17 03:25 Calcium 6.9 mg/dL (8.6-10.8) L 10/10/17 03:25 Magnesium 1.3 mg/dL (1.6-2.6) L 10/10/17 03:25 Alkaline Phosphatase 135 Units/L (38-126) H 10/10/17 03:25 Troponin I 0.17 ng/mL (0-0.03) H* 10/10/17 10:14 B-Natriuretic Peptide 285 pg/mL (0-100) H 10/09/17 21:33 Serum Total Protein 4.1 g/dL (6.0-8.3) L D 10/10/17 03:25 Albumin 0.8 g/dL (3.5-5.0) L D 10/10/17 03:25 Albumin/Globulin Ratio 0.2 (1.1-2.2) L 10/10/17 03:25 Urine Clarity Cloudy (Clear) A 10/09/17 21:56 Urine Protein >=300 mg/dL (Neg-Trace) H 10/09/17 21:56 Urine Glucose (UA) 100 mg/dL (Normal) H 10/09/17 21:56 Urine Blood Moderate (Negative) H 10/09/17 21:56 Urine Microscopic RBC 5-15 per hpf (0-3) H 10/09/17 21:56 Ur Squamous Epith Cells Many per lpf (None-Few) H 10/09/17 21:56 General appearance: Present: average body habitus, cooperative, no acute distress - Respiratory Respiratory exam: Present: CTAB - Cardiovascular Cardiovascular exam: Present: RRR, +S1, +S2 - Neurological Exam Neurological exam: Present: alert, oriented X3 Palliative Quality Palliative Quality: Screen for Code Status: Yes, Screen for Goals of Care: Yes, Screen for Pain: Yes, If Pain Regimen Started, Initiate Bowel Regimen: NA, Screen for Nausea/Vomitting: Yes Code Status: 10/10/17 13:09 DNR [Resuscitation Status: Active] [RES] Routine Comment: Resuscitation Status: [id number] - Labs CBC & Chem 7: 10/10/17 16:01 10/10/17 03:25 Labs: Laboratory Results - last 24 hr 10/11/17 10/11/17 10/11/17 11:22 17:28 23:51 POC Glucose 103 H 90 H 80 - ABG Interpretation ABG results: PT/INR, D-dimer PT 12.1 Seconds (9.4-12.1) 10/10/17 03:25 Consult Discharge Plan - Plan Referrals: NONE,PCP [Primary Care Provider] - <Marin Polanco - Last Filed: 10/12/17 08:54> Date of Encounter: 10/12/17 - Time Spent With Patient Total time spent is greater than 50% in coordination of care (as documented) at patient's floor/unit and/or counseling patient: - Constitutional Vitals: Abnormal lab results WBC 13.0 K/mcL (4.3-11.1) H 10/10/17 03:25 RBC 3.10 M/mcL (4.19-5.50) L 10/10/17 03:25 Hgb 8.8 g/dL (12.9-16.9) L 10/10/17 16:01 Hct 26.6 % (37.5-50.1) L 10/10/17 16:01 MCV 82.9 fL (83.0-100.0) L 10/10/17 03:25 RDW 14.8 % (11.5-14.5) H 10/10/17 03:25 Neutrophils # 12.2 K/mcL (1.6-8.9) H 10/10/17 03:25 Lymphocytes # 0.2 K/mcL (0.6-4.6) L 10/10/17 03:25 VBG pH 7.24 pH Units (7.32-7.42) L 10/09/17 22:09 Potassium 3.2 mEq/L (3.5-4.5) L 10/10/17 03:25 Chloride 113 mEq/L (98-109) H 10/10/17 03:25 Carbon Dioxide 17 mEq/L (19-29) L 10/10/17 03:25 BUN 30 mg/dL (8-26) H 10/10/17 03:25 Glucose 104 mg/dL (70-99) H 10/10/17 03:25 Calcium 6.9 mg/dL (8.6-10.8) L 10/10/17 03:25 Magnesium 1.3 mg/dL (1.6-2.6) L 10/10/17 03:25 Alkaline Phosphatase 135 Units/L (38-126) H 10/10/17 03:25 Troponin I 0.17 ng/mL (0-0.03) H* 10/10/17 10:14 B-Natriuretic Peptide 285 pg/mL (0-100) H 10/09/17 21:33 Serum Total Protein 4.1 g/dL (6.0-8.3) L D 10/10/17 03:25 Albumin 0.8 g/dL (3.5-5.0) L D 10/10/17 03:25 Albumin/Globulin Ratio 0.2 (1.1-2.2) L 10/10/17 03:25 Urine Clarity Cloudy (Clear) A 10/09/17 21:56 Urine Protein >=300 mg/dL (Neg-Trace) H 10/09/17 21:56 Urine Glucose (UA) 100 mg/dL (Normal) H 10/09/17 21:56 Urine Blood Moderate (Negative) H 10/09/17 21:56 Urine Microscopic RBC 5-15 per hpf (0-3) H 10/09/17 21:56 Ur Squamous Epith Cells Many per lpf (None-Few) H 10/09/17 21:56 - Attending Attestation I examined this patient and my medical decision-making was reviewed with the Resident Physician. I agree with the documented findings, disposition and treatment plan as described except to the extent set forth below. Palliative Quality Code Status: 10/10/17 13:09 DNR [Resuscitation Status: Active] [RES] Routine Comment: Resuscitation Status: [id number] - Labs CBC & Chem 7: 10/10/17 16:01 10/10/17 03:25 Labs: Laboratory Results - last 24 hr 10/11/17 10/11/17 10/11/17 11:22 17:28 23:51 POC Glucose 103 H 90 H 80 - ABG Interpretation ABG results: PT/INR, D-dimer PT 12.1 Seconds (9.4-12.1) 10/10/17 03:25
[2017-10-12] MEDS: Haloperidol Lactate 5 MG/ML VIAL IVP SCH (08:54)
[2017-10-12 09:25] LABS: Basophils % 0.3 %; Eosinophils # 0.1 K/mcL (0.0-0.6); Eosinophils % 0.5 %; Hematocrit 30.4 % (37.5-50.1); Hemoglobin 10.2 g/dL (12.9-16.9); Immature Granulocytes % 1.6 % (0-4); Lymphocytes # 0.5 K/mcL (0.6-4.6); Lymphocytes % 3.4 %; Mean Corpuscular HGB Conc 33.6 g/dL (31.6-35.5); Mean Corpuscular Hemoglobin 28.8 pg (28.0-33.3); Mean Corpuscular Volume 85.9 fL (83.0-100.0); Mean Platelet Volume 9.6 fL (9.4-12.4); Monocytes # 0.7 K/mcL (0.0-1.3); Monocytes % 4.4 %; Neutrophils # 13.7 K/mcL (1.6-8.9); Platelet Count 226 K/mcL (140-400); Red Blood Count 3.54 M/mcL (4.19-5.50); Segmented Neutrophils % 89.8 %
[2017-10-12 09:40] LABS: Calcium 7.8 mg/dL (8.6-10.8); Potassium 3.6 mEq/L (3.5-4.5)
--- NOTE | 2017-10-12 09:45 | Internal Med Progress Note ---
Date of Encounter: 10/12/17 Time of Encounter: 09:41 - Assessment and plan (1) Hypertension Current Visit: Yes Status: Chronic Assessment and plan: Change metoprolol to po Patient passed bedside swallow eval Qualifiers: Hypertension type: essential hypertension Qualified Code(s): I10 - Essential (primary) hypertension (2) DMII (diabetes mellitus, type 2) Current Visit: Yes Status: Chronic Assessment and plan: possibly due to poor oral intake, as well as oral hypoglycemic agents at home. Underlying liver cirrhosis FS acceptable, no insulin. A1C ordered, patient refused labs Start pureed diet, monitor closely Qualifiers: Diabetes mellitus complication status: with hyperglycemia Diabetes mellitus corporate librarian insulin use: without corporate librarian use Qualified Code(s): E11.65 - Type 2 diabetes mellitus with hyperglycemia (3) Schizophrenia Current Visit: Yes Status: Chronic Assessment and plan: Patient is very calm and co-operative this morning, continue home dose of haldol Qualifiers: Schizophrenia type: disorganized schizophrenia Qualified Code(s): F20.1 - Disorganized schizophrenia (4) Severe protein-calorie malnutrition Current Visit: Yes Status: Chronic Assessment and plan: Speech eval noted Patient has refused artifical forms of feeding in the past, refused same this time He did pass a bedside swallow eval this morning and is AAOX4, we have started him on a pureed diet. He refused any form of artifical nutrition Add ensure TIDWM (5) Acute metabolic encephalopathy Current Visit: Yes Status: Resolved Assessment and plan: Awake, oriented X4 at this time. Aspiration precautions , Fall risk and fall precautions. (6) Aspiration pneumonia Current Visit: Yes Status: Acute Assessment and plan: Continue Zosyn Failed NATURAL GAS PLANT TECHNICIAN eval MBS showed risk of aspiration Speech eval noted Patient refused PEG tube placement He is currently AAOX4. Passed bedside swallow Start pureed diet and await repeat NATURAL GAS PLANT TECHNICIAN a.m Qualifiers: Aspiration pneumonia type: unspecified Laterality: right Lung location: lower lobe of lung Qualified Code(s): J69.0 - Pneumonitis due to inhalation of food and vomit (7) Atrial fibrillation with RVR Current Visit: Yes Status: Acute Assessment and plan: Heart rate is currently controlled on metoprolol, change to po Patient is poor candidate for anticoagulation due to being bedbound poor functional status. Cardiology eval appreciated. No heparin due to acute drop in HB , patient refused labs today. (8) Elevated troponin Current Visit: Yes Status: Acute Assessment and plan: As above, suspected myocardial ischemia. Also possibly from demand, however echocardiogram shows regional wall motion abnormality. Continue ASA 81mg po daily, add lipitor, continue BB (9) OLGA (acute kidney injury) Current Visit: Yes Status: Acute Assessment and plan: Possibly due to poor oral intake Start on gentle hydration NS 60cc /hr - Subjective Interval history: Seen and evaluated at bedside with his granddaughter Patient is much more awake this morning He is very conversant, calm and oriented X4 He remembers he hasn't had anything to eat in 4 days He refused PEG tube, and also stated he will not be going to in-patient rehab if its recommended, PTOT eval is pending RN to do a bedside swallow, as patient continues to demand to eat and drink He agreed to labs this morning, his WBC and HB are improved He has a new OLGA - Constitutional Vitals: Temp Pulse Resp BP Pulse Ox 97.6 F 100 18 190/83 94 10/12/17 06:13 10/12/17 06:13 10/12/17 06:13 10/12/17 09:23 10/12/17 06:13 General appearance: Present: cachectic, cooperative, disheveled, A&O X 3, pleasant, answers questions appropriately - Head Head exam: Present: atraumatic, normocephalic - Eye Eye exam: Present: PERRL, conjuntiva pink, sclera anicteric Pupils: Present: PERRL - Neck Neck exam general surgery: Present: supple, trachea midline. Absent: lymphadenopathy - Respiratory Respiratory exam: Present: CTAB. Absent: accessory muscle use, rales, rhonchi, wheezes - Cardiovascular Cardiovascular exam: Present: RRR, +S1, +S2. Absent: diastolic murmur, gallop, rubs, systolic murmur - GI/Abdominal GI/Abdominal exam: Present: normal bowel sounds, soft, no peritoneal signs. Absent: distended, tenderness - Extremities Exam Extremities exam: Present: warm, radial pulses palpable and symmetrical. Absent : calf tenderness, cyanotic, pedal edema - Neurological Exam Neurological exam: Present: alert, CN II-XII intact, oriented X3, no focal deficits. Absent: pronater drift, facial droop, speech deficit - Skin Skin exam: Present: dry, intact Internal Medicine: Result - Labs CBC & Chem 7: 10/12/17 08:52 10/12/17 08:52 Labs: Short CBC 10/12/17 Range/Units 08:52 WBC 15.2 H (4.3-11.1) K/mcL Hgb 10.2 L (12.9-16.9) g/dL Hct 30.4 L (37.5-50.1) % Plt Count 226 (140-400) K/mcL Neutrophils # 13.7 H (1.6-8.9) K/mcL - ABG Interpretation ABG results: PT/INR, D-dimer PT 12.1 Seconds (9.4-12.1) 10/10/17 03:25 Consult Discharge Plan - Plan Referrals: NONE,PCP [Primary Care Provider] -
[2017-10-12] MEDS: Aspirin Enteric Coated 81 MG Tablet PO SCH (10:29)
[2017-10-12] MEDS: 0.9 % Sodium Chloride 1,000 ML IVC SCH (10:29)
[2017-10-12] MEDS ORDERED: Levofloxacin 750 MG/150 ML 750 MG/150 ML BAG IVPB SCH (23:00)
[2017-10-13] MEDS: Piperacillin/Tazobactam 3.375 GM/200 ML BAG IVPB SCH ×3 (02:25→17:40)
[2017-10-13] MEDS: 0.9 % Sodium Chloride 1,000 ML IVC SCH (03:23)
[2017-10-13 04:02] LABS: Basophils % 0.2 %; Eosinophils # 0.1 K/mcL (0.0-0.6); Hematocrit 26.6 % (37.5-50.1); Hemoglobin 8.7 g/dL (12.9-16.9); Immature Granulocytes % 2.5 % (0-4); Lymphocytes # 0.5 K/mcL (0.6-4.6); Mean Corpuscular HGB Conc 32.7 g/dL (31.6-35.5); Mean Corpuscular Hemoglobin 27.6 pg (28.0-33.3); Mean Corpuscular Volume 84.4 fL (83.0-100.0); Mean Platelet Volume 9.8 fL (9.4-12.4); Monocytes # 0.6 K/mcL (0.0-1.3); Monocytes % 6.5 %; Neutrophils # 8.3 K/mcL (1.6-8.9); Platelet Count 208 K/mcL (140-400); Red Blood Count 3.15 M/mcL (4.19-5.50); Red Cell Distribution Width 15.2 % (11.5-14.5); Segmented Neutrophils % 84.8 %
[2017-10-13 04:17] LABS: Calcium 7.1 mg/dL (8.6-10.8); Potassium 3.2 mEq/L (3.5-4.5)
[2017-10-13] MEDS: *HR* Heparin 5,000 UNIT/ML VIAL SQ SCH ×2 (06:25→17:41)
--- NOTE | 2017-10-13 08:43 | Internal Med Progress Note ---
<Galdino Cardoza - Last Filed: 10/13/17 12:53> Date of Encounter: 10/13/17 Time of Encounter: 08:41 - Assessment and plan (1) Hypertension Current Visit: Yes Status: Chronic Assessment and plan: Metoprolol changed to po as patient passed bedside swallow eval Systolic BP elevated last night up to 191, was given hydralazine 10 mg BP has been stable this morning, we will consider increasing his Lopressor and monitoring heart rate Qualifiers: Hypertension type: essential hypertension Qualified Code(s): I10 - Essential (primary) hypertension (2) DMII (diabetes mellitus, type 2) Current Visit: Yes Status: Chronic Assessment and plan: possibly due to poor oral intake, as well as oral hypoglycemic agents at home. Underlying liver cirrhosis FS acceptable, no insulin. A1C ordered, patient refused labs Started pureed diet, Ensure monitor closely Qualifiers: Diabetes mellitus complication status: with hyperglycemia Diabetes mellitus senior care insulin use: without senior care use Qualified Code(s): E11.65 - Type 2 diabetes mellitus with hyperglycemia (3) Schizophrenia Current Visit: Yes Status: Chronic Assessment and plan: Mental stats significantly improved, patient cooperative this morning continue home dose of haldol Qualifiers: Schizophrenia type: disorganized schizophrenia Qualified Code(s): F20.1 - Disorganized schizophrenia (4) Severe protein-calorie malnutrition Current Visit: Yes Status: Chronic Assessment and plan: Speech eval noted Patient has refused artifical forms of feeding in the past, refused same this time He did pass a bedside swallow eval yesterday and is A&OX4, we have started him on a pureed diet and ensure TIDWM He refused any form of artificial nutrition (5) Acute metabolic encephalopathy Current Visit: Yes Status: Resolved Assessment and plan: Awake, oriented X4 at this time. Aspiration precautions , Fall risk and fall precautions. (6) Aspiration pneumonia Current Visit: Yes Status: Acute Assessment and plan: Continue Zosyn Failed FLIGHT OPERATIONS INSPECTOR eval MBS showed risk of aspiration Speech eval noted Patient refused PEG tube placement He is currently AAOX4. Passed bedside swallow Start pureed diet and await repeat FLIGHT OPERATIONS INSPECTOR a.m Qualifiers: Aspiration pneumonia type: unspecified Laterality: right Lung location: lower lobe of lung Qualified Code(s): J69.0 - Pneumonitis due to inhalation of food and vomit (7) Atrial fibrillation with RVR Current Visit: Yes Status: Acute Assessment and plan: Heart rate is currently controlled on metoprolol, change to po Patient is poor candidate for anticoagulation due to being bedbound poor functional status. Cardiology eval appreciated. No heparin due to acute drop in HB , patient refused labs today. (8) Elevated troponin Current Visit: Yes Status: Acute Assessment and plan: As above, suspected myocardial ischemia. Also possibly from demand, however echocardiogram shows regional wall motion abnormality. Continue ASA 81mg po daily, add lipitor, continue BB (9) OLGA (acute kidney injury) Current Visit: Yes Status: Acute Assessment and plan: Possibly due to poor oral intake Continue gentle hydration NS 60cc /hr - Subjective Interval history: Patient seen and examined at bedside. He denies chest pain, abdominal pain, shortness of breath, or other new complaints - Constitutional Vitals: Temp Pulse Resp BP Pulse Ox 97.8 F 84 17 147/77 96 10/13/17 07:38 10/13/17 07:38 10/13/17 07:38 10/13/17 07:38 10/13/17 07:38 General appearance: Present: cachectic, cooperative, disheveled, A&O X 3, pleasant, answers questions appropriately - Respiratory Respiratory exam: Present: CTAB. Absent: accessory muscle use, rales, rhonchi, wheezes - Cardiovascular Cardiovascular exam: Present: RRR, +S1, +S2. Absent: diastolic murmur, gallop, rubs, systolic murmur - GI/Abdominal GI/Abdominal exam: Present: normal bowel sounds, soft, no peritoneal signs. Absent: distended, tenderness - Neurological Exam Neurological exam: Present: alert, oriented X3, no focal deficits Internal Medicine: Result - Labs CBC & Chem 7: 10/13/17 03:30 10/13/17 03:30 Labs: Short CBC 10/12/17 10/13/17 Range/Units 08:52 03:30 WBC 15.2 H 9.8 (4.3-11.1) K/mcL Hgb 10.2 L 8.7 L D (12.9-16.9) g/dL Hct 30.4 L 26.6 L (37.5-50.1) % Plt Count 226 208 (140-400) K/mcL Neutrophils # 13.7 H 8.3 (1.6-8.9) K/mcL BMP 10/12/17 10/13/17 08:52 03:30 Sodium 141 141 Potassium 3.6 3.2 L Chloride 115 H 115 H Carbon Dioxide 13 L 16 L BUN 39 H 38 H Creatinine 2.18 H D 2.17 H Glucose 75 180 H Calcium 7.8 L 7.1 L - ABG Interpretation ABG results: PT/INR, D-dimer PT 12.1 Seconds (9.4-12.1) 10/10/17 03:25 Consult Discharge Plan - Plan Referrals: NONE,PCP [Primary Care Provider] - <Jorge A Saldivar - Last Filed: 10/13/17 13:37> Date of Encounter: 10/13/17 - Assessment and plan (1) Hypertension Current Visit: Yes Status: Chronic Qualifiers: Hypertension type: essential hypertension Qualified Code(s): I10 - Essential (primary) hypertension (2) DMII (diabetes mellitus, type 2) Current Visit: Yes Status: Chronic Qualifiers: Diabetes mellitus complication status: with hyperglycemia Diabetes mellitus buttermaker continuous churn insulin use: without senior care use Qualified Code(s): E11.65 - Type 2 diabetes mellitus with hyperglycemia (3) Schizophrenia Current Visit: Yes Status: Chronic Qualifiers: Schizophrenia type: disorganized schizophrenia Qualified Code(s): F20.1 - Disorganized schizophrenia (4) Severe protein-calorie malnutrition Current Visit: Yes Status: Chronic (5) Acute metabolic encephalopathy Current Visit: Yes Status: Resolved (6) Aspiration pneumonia Current Visit: Yes Status: Acute Qualifiers: Aspiration pneumonia type: unspecified Laterality: right Lung location: lower lobe of lung Qualified Code(s): J69.0 - Pneumonitis due to inhalation of food and vomit (7) Atrial fibrillation with RVR Current Visit: Yes Status: Acute (8) Elevated troponin Current Visit: Yes Status: Acute (9) OLGA (acute kidney injury) Current Visit: Yes Status: Acute - Constitutional Vitals: Temp Pulse Resp BP Pulse Ox 98.0 F 83 17 152/67 92 10/13/17 11:14 10/13/17 11:14 10/13/17 11:14 10/13/17 11:14 10/13/17 11:14 Internal Medicine: Result - Labs CBC & Chem 7: 10/13/17 03:30 10/13/17 03:30 Labs: Short CBC 10/13/17 Range/Units 03:30 WBC 9.8 (4.3-11.1) K/mcL Hgb 8.7 L D (12.9-16.9) g/dL Hct 26.6 L (37.5-50.1) % Plt Count 208 (140-400) K/mcL Neutrophils # 8.3 (1.6-8.9) K/mcL BMP 10/13/17 03:30 Sodium 141 Potassium 3.2 L Chloride 115 H Carbon Dioxide 16 L BUN 38 H Creatinine 2.17 H Glucose 180 H Calcium 7.1 L - ABG Interpretation ABG results: PT/INR, D-dimer PT 12.1 Seconds (9.4-12.1) 10/10/17 03:25 - Attending Attestation I have reviewed EMR, seen and examined this patient on 10/13/17 72 M, admitted fo acute encephaolpathy secondary to sepsis, hypoglycemia, aspiration pneumonia, hypoxia. He is AAOX3 this morning, pleasant. NO new complains He has been fed since 10/12 and persistently refused artificial forms of nutrition He refused PTOT eval while i was in his room saying "he is going no where but home" Palliative care is following closely as patient was admitted from home hospice He is otherwise clinically improving Exam: VSS, cachectic, AAOX3. Moves all limbs independently, no faial droop, no speech deficits, chest is CTAB anteriorly, HS S1, S2 , no m/g/r. Abdomen is scaphoid, not tender, no pedal edema Labs reviewed Agree with gentle hydration, obtain renal USS. Replace K. Possible NSTEMI. Not a [facility] candidate in the setting of possible CVA, anemia, and multiple co- morbidities. HR is controlled, no anticoagulation. Rest as in resident physician's documentation
[2017-10-13] MEDS: Aspirin Enteric Coated 81 MG Tablet PO SCH (09:35)
--- NOTE | 2017-10-13 09:46 | Palliative Progress Note ---
Date of Encounter: 10/13/17 Time of Encounter: 09:40 - Assessment and plan (1) Counseling regarding advanced care planning and goals of care Current Visit: Yes Status: Acute Assessment and plan: Patient adamant about going home. Spoke with [facility] - their social work associate has been following patient closely, and they have been sending out staff 2-3 times a day, as he is alone majority of the time. They also have spoken with pt re: ecf placement and he refused for them prior to admission. [facility] did state that they would re-enroll pt and continue to care for him at home, and their social work associate would be involved. Updated daughter Margot - she is very ill and unable to be here. Will continue to follow. (2) Failure to thrive in adult Current Visit: No Status: Chronic Assessment and plan: PT/OT ordered - encouraged him to participate. Mental status much improved from admission. Refusing rehab, and stated he is going home. (3) Aspiration pneumonia Current Visit: Yes Status: Acute Qualifiers: Aspiration pneumonia type: unspecified Laterality: right Lung location: lower lobe of lung Qualified Code(s): J69.0 - Pneumonitis due to inhalation of food and vomit - Time Spent With Patient Total time spent is greater than 50% in coordination of care (as documented) at patient's floor/unit and/or counseling patient: - Subjective Interval history: Patient awake and alert, agitated. Leukocytosis improved. Speech therapy at bedside. States does not have effective swallow. He still is refusing feeding tube and will be signing dysphasia waiver. Denies pain, asking me to leave the room. - Constitutional Vitals: Abnormal lab results RBC 3.15 M/mcL (4.19-5.50) L 10/13/17 03:30 Hgb 8.7 g/dL (12.9-16.9) L D 10/13/17 03:30 Hct 26.6 % (37.5-50.1) L 10/13/17 03:30 MCH 27.6 pg (28.0-33.3) L 10/13/17 03:30 RDW 15.2 % (11.5-14.5) H 10/13/17 03:30 Lymphocytes # 0.5 K/mcL (0.6-4.6) L 10/13/17 03:30 VBG pH 7.24 pH Units (7.32-7.42) L 10/09/17 22:09 Potassium 3.2 mEq/L (3.5-4.5) L 10/13/17 03:30 Chloride 115 mEq/L (98-109) H 10/13/17 03:30 Carbon Dioxide 16 mEq/L (19-29) L 10/13/17 03:30 BUN 38 mg/dL (8-26) H 10/13/17 03:30 Creatinine 2.17 mg/dL (0.72-1.25) H 10/13/17 03:30 Est GFR ( Amer) 37 (> 60) L 10/13/17 03:30 Est GFR (Non-Af Amer) 30 (> 60) L 10/13/17 03:30 Glucose 180 mg/dL (70-99) H 10/13/17 03:30 POC Glucose 157 (58-89) H 10/13/17 07:40 Calculated Osmolality 306 (280-300) H 10/13/17 03:30 Calcium 7.1 mg/dL (8.6-10.8) L 10/13/17 03:30 Magnesium 1.3 mg/dL (1.6-2.6) L 10/10/17 03:25 Alkaline Phosphatase 135 Units/L (38-126) H 10/10/17 03:25 Troponin I 0.17 ng/mL (0-0.03) H* 10/10/17 10:14 B-Natriuretic Peptide 285 pg/mL (0-100) H 10/09/17 21:33 Serum Total Protein 4.1 g/dL (6.0-8.3) L D 10/10/17 03:25 Albumin 0.8 g/dL (3.5-5.0) L D 10/10/17 03:25 Albumin/Globulin Ratio 0.2 (1.1-2.2) L 10/10/17 03:25 Urine Clarity Cloudy (Clear) A 10/09/17 21:56 Urine Protein >=300 mg/dL (Neg-Trace) H 10/09/17 21:56 Urine Glucose (UA) 100 mg/dL (Normal) H 10/09/17 21:56 Urine Blood Moderate (Negative) H 10/09/17 21:56 Urine Microscopic RBC 5-15 per hpf (0-3) H 10/09/17 21:56 Ur Squamous Epith Cells Many per lpf (None-Few) H 10/09/17 21:56 General appearance: Present: no acute distress - Respiratory Respiratory exam: Present: CTAB - Cardiovascular Cardiovascular exam: Present: +S1, +S2 - GI/Abdominal GI/Abdominal exam: Present: normal bowel sounds, soft - Neurological Exam Neurological exam: Present: alert, oriented X3, strengths equal and symetr throughout - Skin Skin exam: Present: dry, warm Palliative Quality Palliative Quality: Screen for Code Status: Yes, Screen for Goals of Care: Yes, Screen for Pain: Yes, If Pain Regimen Started, Initiate Bowel Regimen: NA, Screen for Nausea/Vomitting: Yes Code Status: 10/10/17 13:09 DNR [Resuscitation Status: Active] [RES] Routine Comment: Resuscitation Status: [id number] - Labs CBC & Chem 7: 10/13/17 03:30 10/13/17 03:30 Labs: Laboratory Results - last 24 hr 10/12/17 10/12/17 10/13/17 08:37 17:11 03:30 WBC 9.8 RBC 3.15 L Hgb 8.7 L D Hct 26.6 L MCV 84.4 MCH 27.6 L MCHC 32.7 RDW 15.2 H Plt Count 208 MPV 9.8 Immature Gran % 2.5 Seg Neutrophils % 84.8 Lymphocytes % 5.0 Monocytes % 6.5 Eosinophils % 1.0 Basophils % 0.2 Neutrophils # 8.3 Lymphocytes # 0.5 L Monocytes # 0.6 Eosinophils # 0.1 Basophils # 0.0 Sodium Potassium Chloride Carbon Dioxide BUN Creatinine Est GFR ( Amer) Est GFR (Non-Af Amer) BUN/Creatinine Ratio Glucose POC Glucose 80 154 H Calculated Osmolality Calcium 10/13/17 10/13/17 03:30 07:40 WBC RBC Hgb Hct MCV MCH MCHC RDW Plt Count MPV Immature Gran % Seg Neutrophils % Lymphocytes % Monocytes % Eosinophils % Basophils % Neutrophils # Lymphocytes # Monocytes # Eosinophils # Basophils # Sodium 141 Potassium 3.2 L Chloride 115 H Carbon Dioxide 16 L BUN 38 H Creatinine 2.17 H Est GFR ( Amer) 37 L Est GFR (Non-Af Amer) 30 L BUN/Creatinine Ratio 18 Glucose 180 H POC Glucose 157 H Calculated Osmolality 306 H Calcium 7.1 L - ABG Interpretation ABG results: PT/INR, D-dimer PT 12.1 Seconds (9.4-12.1) 10/10/17 03:25 Consult Discharge Plan - Plan Referrals: NONE,PCP [Primary Care Provider] -
[2017-10-13] MEDS ORDERED: Dextrose Gel 15 GM PO PRN ×2 (11:23)
[2017-10-13] MEDS ORDERED: D5% in Water 1,000 ML IVC PRN (11:23)
[2017-10-13] MEDS ORDERED: *HR* Dextrose 50 % in Water (Syg) 50 ML SYRINGE IVP PRN (11:23)
[2017-10-13] MEDS: Insulin LISPRO 300 UNITS/3 ML VIAL SQ SCH ×3 (17:37→21:54)
[2017-10-13] MEDS: Acetaminophen 325 MG TABLET PO PRN (19:11)
[2017-10-13] MEDS ORDERED: Furosemide 40 MG/4 ML VIAL IVP ONE (23:22)
[2017-10-14] MEDS: Piperacillin/Tazobactam 3.375 GM/200 ML BAG IVPB SCH ×3 (01:57→18:41)
[2017-10-14] MEDS: Ipratropium/Albuterol Neb 3 ML IH SCH ×6 (04:19→23:04)
[2017-10-14] MEDS: *HR* Heparin 5,000 UNIT/ML VIAL SQ SCH (06:18)
[2017-10-14 07:10] LABS: Basophils % 0.3 %; Eosinophils # 0.2 K/mcL (0.0-0.6); Eosinophils % 1.5 %; Hematocrit 29.8 % (37.5-50.1); Hemoglobin 9.5 g/dL (12.9-16.9); Immature Granulocytes % 1.1 % (0-4); Lymphocytes # 0.6 K/mcL (0.6-4.6); Lymphocytes % 5.4 %; Mean Corpuscular HGB Conc 31.9 g/dL (31.6-35.5); Mean Corpuscular Hemoglobin 27.6 pg (28.0-33.3); Mean Corpuscular Volume 86.6 fL (83.0-100.0); Mean Platelet Volume 9.9 fL (9.4-12.4); Monocytes # 0.6 K/mcL (0.0-1.3); Monocytes % 5.6 %; Neutrophils # 9.3 K/mcL (1.6-8.9); Platelet Count 232 K/mcL (140-400); Red Blood Count 3.44 M/mcL (4.19-5.50); Red Cell Distribution Width 15.4 % (11.5-14.5); Segmented Neutrophils % 86.1 %
[2017-10-14 07:34] LABS: Calcium 7.6 mg/dL (8.6-10.8); Potassium 3.7 mEq/L (3.5-4.5)
[2017-10-14] MEDS: Aspirin Enteric Coated 81 MG Tablet PO SCH (09:16)
[2017-10-14] MEDS: Acetaminophen 325 MG TABLET PO PRN (09:16)
[2017-10-14] MEDS: Insulin LISPRO 300 UNITS/3 ML VIAL SQ SCH ×2 (09:24→18:39)
[2017-10-14] MEDS ORDERED: *HR* OxyCODONE Immed Rel 5 MG TABLET PO PRN (09:37)
--- NOTE | 2017-10-14 14:46 | Palliative Progress Note ---
<Srinivasa Galdamez - Last Filed: 10/14/17 15:52> Date of Encounter: 10/14/17 Time of Encounter: 08:45 - Assessment and plan (1) Counseling regarding advanced care planning and goals of care Current Visit: Yes Status: Acute Assessment and plan: Plan is for patient to go home under [facility] starting tomorrow. (2) Failure to thrive in adult Current Visit: No Status: Chronic Assessment and plan: Patient refuses rehab. (3) Aspiration pneumonia Current Visit: Yes Status: Acute Assessment and plan: Patient refused feeding tube and signed dysphagia waiver. Qualifiers: Aspiration pneumonia type: unspecified Laterality: right Lung location: lower lobe of lung Qualified Code(s): J69.0 - Pneumonitis due to inhalation of food and vomit - Time Spent With Patient Total time spent is greater than 50% in coordination of care (as documented) at patient's floor/unit and/or counseling patient: - Subjective Interval history: No significant interval changes. Patient was sitting in bed, eating breakfast. - Constitutional Vitals: Abnormal lab results RBC 3.44 M/mcL (4.19-5.50) L 10/14/17 06:00 Hgb 9.5 g/dL (12.9-16.9) L 10/14/17 06:00 Hct 29.8 % (37.5-50.1) L 10/14/17 06:00 MCH 27.6 pg (28.0-33.3) L 10/14/17 06:00 RDW 15.4 % (11.5-14.5) H 10/14/17 06:00 Neutrophils # 9.3 K/mcL (1.6-8.9) H 10/14/17 06:00 VBG pH 7.24 pH Units (7.32-7.42) L 10/09/17 22:09 Chloride 116 mEq/L (98-109) H 10/14/17 06:00 Carbon Dioxide 13 mEq/L (19-29) L 10/14/17 06:00 BUN 37 mg/dL (8-26) H 10/14/17 06:00 Creatinine 2.24 mg/dL (0.72-1.25) H 10/14/17 06:00 Est GFR ( Amer) 35 (> 60) L 10/14/17 06:00 Est GFR (Non-Af Amer) 29 (> 60) L 10/14/17 06:00 Glucose 184 mg/dL (70-99) H 10/14/17 06:00 POC Glucose 212 (58-89) H 10/14/17 12:02 Calculated Osmolality 307 (280-300) H 10/14/17 06:00 Calcium 7.6 mg/dL (8.6-10.8) L 10/14/17 06:00 Magnesium 1.3 mg/dL (1.6-2.6) L 10/10/17 03:25 Alkaline Phosphatase 135 Units/L (38-126) H 10/10/17 03:25 Troponin I 0.17 ng/mL (0-0.03) H* 10/10/17 10:14 B-Natriuretic Peptide 285 pg/mL (0-100) H 10/09/17 21:33 Serum Total Protein 4.1 g/dL (6.0-8.3) L D 10/10/17 03:25 Albumin 0.8 g/dL (3.5-5.0) L D 10/10/17 03:25 Albumin/Globulin Ratio 0.2 (1.1-2.2) L 10/10/17 03:25 Urine Clarity Cloudy (Clear) A 10/09/17 21:56 Urine Protein >=300 mg/dL (Neg-Trace) H 10/09/17 21:56 Urine Glucose (UA) 100 mg/dL (Normal) H 10/09/17 21:56 Urine Blood Moderate (Negative) H 10/09/17 21:56 Urine Microscopic RBC 5-15 per hpf (0-3) H 10/09/17 21:56 Ur Squamous Epith Cells Many per lpf (None-Few) H 10/09/17 21:56 - Head Head exam: Present: atraumatic, normal inspection, normocephalic - ENT ENT exam: Present: mucous membranes moist - Respiratory Respiratory exam: Present: decreased breath sounds, CTAB - Cardiovascular Cardiovascular exam: Present: +S1, +S2 - GI/Abdominal GI/Abdominal exam: Present: normal bowel sounds, soft. Absent: tenderness - Neurological Exam Neurological exam: Present: alert - Skin Skin exam: Present: warm Palliative Quality Palliative Quality: Screen for Code Status: Yes, Screen for Goals of Care: Yes, Screen for Pain: Yes, If Pain Regimen Started, Initiate Bowel Regimen: NA, Screen for Nausea/Vomitting: Yes Code Status: 10/10/17 13:09 DNR [Resuscitation Status: Active] [RES] Routine Comment: Resuscitation Status: [id number] - Labs CBC & Chem 7: 10/14/17 06:00 10/14/17 06:00 Labs: Laboratory Results - last 24 hr 10/13/17 10/13/17 10/14/17 16:45 21:19 06:00 WBC 10.8 RBC 3.44 L Hgb 9.5 L Hct 29.8 L MCV 86.6 MCH 27.6 L MCHC 31.9 RDW 15.4 H Plt Count 232 MPV 9.9 Immature Gran % 1.1 Seg Neutrophils % 86.1 Lymphocytes % 5.4 Monocytes % 5.6 Eosinophils % 1.5 Basophils % 0.3 Neutrophils # 9.3 H Lymphocytes # 0.6 Monocytes # 0.6 Eosinophils # 0.2 Basophils # 0.0 Sodium Potassium Chloride Carbon Dioxide BUN Creatinine Est GFR ( Amer) Est GFR (Non-Af Amer) BUN/Creatinine Ratio Glucose POC Glucose 190 H 190 H Calculated Osmolality Calcium 10/14/17 10/14/17 10/14/17 06:00 06:21 12:02 WBC RBC Hgb Hct MCV MCH MCHC RDW Plt Count MPV Immature Gran % Seg Neutrophils % Lymphocytes % Monocytes % Eosinophils % Basophils % Neutrophils # Lymphocytes # Monocytes # Eosinophils # Basophils # Sodium 142 Potassium 3.7 Chloride 116 H Carbon Dioxide 13 L BUN 37 H Creatinine 2.24 H Est GFR ( Amer) 35 L Est GFR (Non-Af Amer) 29 L BUN/Creatinine Ratio 17 Glucose 184 H POC Glucose 270 H 212 H Calculated Osmolality 307 H Calcium 7.6 L - Impressions Impressions Retroperitoneum Ultrasound 10/13/17 14:30 IMPRESSION: 1. Limited visualization of the kidneys. No hydronephrosis. 2. Small to moderate abdominal and pelvic ascites. D/ / Sachin Sheets MD / Sachin Sheets MD Interpreting Provider: Sachin Sheets MD - ABG Interpretation ABG results: PT/INR, D-dimer PT 12.1 Seconds (9.4-12.1) 10/10/17 03:25 Consult Discharge Plan - Plan Referrals: NONE,PCP [Primary Care Provider] - ([facility]) <Marin Polanco - Last Filed: 10/14/17 16:04> Date of Encounter: 10/14/17 - Time Spent With Patient Total time spent is greater than 50% in coordination of care (as documented) at patient's floor/unit and/or counseling patient: - Constitutional Vitals: Abnormal lab results RBC 3.44 M/mcL (4.19-5.50) L 10/14/17 06:00 Hgb 9.5 g/dL (12.9-16.9) L 10/14/17 06:00 Hct 29.8 % (37.5-50.1) L 10/14/17 06:00 MCH 27.6 pg (28.0-33.3) L 10/14/17 06:00 RDW 15.4 % (11.5-14.5) H 10/14/17 06:00 Neutrophils # 9.3 K/mcL (1.6-8.9) H 10/14/17 06:00 VBG pH 7.24 pH Units (7.32-7.42) L 10/09/17 22:09 Chloride 116 mEq/L (98-109) H 10/14/17 06:00 Carbon Dioxide 13 mEq/L (19-29) L 10/14/17 06:00 BUN 37 mg/dL (8-26) H 10/14/17 06:00 Creatinine 2.24 mg/dL (0.72-1.25) H 10/14/17 06:00 Est GFR ( Amer) 35 (> 60) L 10/14/17 06:00 Est GFR (Non-Af Amer) 29 (> 60) L 10/14/17 06:00 Glucose 184 mg/dL (70-99) H 10/14/17 06:00 POC Glucose 212 (58-89) H 10/14/17 12:02 Calculated Osmolality 307 (280-300) H 10/14/17 06:00 Calcium 7.6 mg/dL (8.6-10.8) L 10/14/17 06:00 Magnesium 1.3 mg/dL (1.6-2.6) L 10/10/17 03:25 Alkaline Phosphatase 135 Units/L (38-126) H 10/10/17 03:25 Troponin I 0.17 ng/mL (0-0.03) H* 10/10/17 10:14 B-Natriuretic Peptide 285 pg/mL (0-100) H 10/09/17 21:33 Serum Total Protein 4.1 g/dL (6.0-8.3) L D 10/10/17 03:25 Albumin 0.8 g/dL (3.5-5.0) L D 10/10/17 03:25 Albumin/Globulin Ratio 0.2 (1.1-2.2) L 10/10/17 03:25 Urine Clarity Cloudy (Clear) A 10/09/17 21:56 Urine Protein >=300 mg/dL (Neg-Trace) H 10/09/17 21:56 Urine Glucose (UA) 100 mg/dL (Normal) H 10/09/17 21:56 Urine Blood Moderate (Negative) H 10/09/17 21:56 Urine Microscopic RBC 5-15 per hpf (0-3) H 10/09/17 21:56 Ur Squamous Epith Cells Many per lpf (None-Few) H 10/09/17 21:56 - Attending Attestation I examined this patient and my medical decision-making was reviewed with the Resident Physician. I agree with the documented findings, disposition and treatment plan as described except to the extent set forth below. Palliative Quality Code Status: 10/10/17 13:09 DNR [Resuscitation Status: Active] [RES] Routine Comment: Resuscitation Status: [id number] - Labs CBC & Chem 7: 10/14/17 06:00 10/14/17 06:00 Labs: Laboratory Results - last 24 hr 10/13/17 10/13/17 10/14/17 16:45 21:19 06:00 WBC 10.8 RBC 3.44 L Hgb 9.5 L Hct 29.8 L MCV 86.6 MCH 27.6 L MCHC 31.9 RDW 15.4 H Plt Count 232 MPV 9.9 Immature Gran % 1.1 Seg Neutrophils % 86.1 Lymphocytes % 5.4 Monocytes % 5.6 Eosinophils % 1.5 Basophils % 0.3 Neutrophils # 9.3 H Lymphocytes # 0.6 Monocytes # 0.6 Eosinophils # 0.2 Basophils # 0.0 Sodium Potassium Chloride Carbon Dioxide BUN Creatinine Est GFR ( Amer) Est GFR (Non-Af Amer) BUN/Creatinine Ratio Glucose POC Glucose 190 H 190 H Calculated Osmolality Calcium 10/14/17 10/14/17 10/14/17 06:00 06:21 12:02 WBC RBC Hgb Hct MCV MCH MCHC RDW Plt Count MPV Immature Gran % Seg Neutrophils % Lymphocytes % Monocytes % Eosinophils % Basophils % Neutrophils # Lymphocytes # Monocytes # Eosinophils # Basophils # Sodium 142 Potassium 3.7 Chloride 116 H Carbon Dioxide 13 L BUN 37 H Creatinine 2.24 H Est GFR ( Amer) 35 L Est GFR (Non-Af Amer) 29 L BUN/Creatinine Ratio 17 Glucose 184 H POC Glucose 270 H 212 H Calculated Osmolality 307 H Calcium 7.6 L - ABG Interpretation ABG results: PT/INR, D-dimer PT 12.1 Seconds (9.4-12.1) 10/10/17 03:25
--- NOTE | 2017-10-14 17:02 | Internal Med Progress Note ---
<Galdino Cardoza - Last Filed: 10/14/17 17:00> Date of Encounter: 10/14/17 Time of Encounter: 08:00 - Assessment and plan (1) Hypertension Current Visit: Yes Status: Chronic Assessment and plan: Metoprolol changed to po as patient passed bedside swallow eval BP has been stable this morning, we will consider increasing his Lopressor and monitoring heart rate Qualifiers: Hypertension type: essential hypertension Qualified Code(s): I10 - Essential (primary) hypertension (2) DMII (diabetes mellitus, type 2) Current Visit: Yes Status: Chronic Assessment and plan: possibly due to poor oral intake, as well as oral hypoglycemic agents at home. Underlying liver cirrhosis FS acceptable, no insulin. 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 home use Qualified Code(s): E11.65 - Type 2 diabetes mellitus with hyperglycemia (3) Schizophrenia Current Visit: Yes Status: Chronic Assessment and plan: Mental stats significantly improved, patient cooperative this morning continue home dose of haldol Qualifiers: Schizophrenia type: disorganized schizophrenia Qualified Code(s): F20.1 - Disorganized schizophrenia (4) Severe protein-calorie malnutrition Current Visit: Yes Status: Chronic Assessment and plan: Speech eval noted Patient has refused artifical forms of feeding in the past, refused same this time He did pass a bedside swallow eval yesterday and is A&OX4, we have started him on a pureed diet and ensure TIDWM He refused any form of artificial nutrition (5) Acute metabolic encephalopathy Current Visit: Yes Status: Resolved Assessment and plan: Awake, oriented X4 at this time. Aspiration precautions , Fall risk and fall precautions. (6) Aspiration pneumonia Current Visit: Yes Status: Acute Assessment and plan: Continue Zosyn Failed [employer] eval MBS showed risk of aspiration Patient refused PEG tube placement He is currently AAOX4. Passed bedside swallow Start pureed diet Qualifiers: Aspiration pneumonia type: unspecified Laterality: right Lung location: lower lobe of lung Qualified Code(s): J69.0 - Pneumonitis due to inhalation of food and vomit (7) Atrial fibrillation with RVR Current Visit: Yes Status: Acute Assessment and plan: Heart rate is currently controlled on metoprolol po Patient is poor candidate for anticoagulation due to being bedbound poor functional status. Cardiology eval appreciated. No heparin due to acute drop in HB , patient refused labs today. (8) Elevated troponin Current Visit: Yes Status: Acute Assessment and plan: As above, suspected myocardial ischemia. Also possibly from demand, however echocardiogram shows regional wall motion abnormality. Continue ASA 81mg po daily, add lipitor, continue BB (9) OLGA (acute kidney injury) Current Visit: Yes Status: Acute Assessment and plan: Possibly due to poor oral intake Continue gentle hydration NS 60cc /hr - Subjective Interval history: Patient seen and examined at bedside. He denies chest pain, abdominal pain, shortness of breath, or other new complaints - Constitutional Vitals: Temp Pulse Resp BP Pulse Ox 97.5 F L 86 14 167/75 100 10/14/17 16:12 10/14/17 16:12 10/14/17 16:12 10/14/17 16:12 10/14/17 16:12 General appearance: Present: cachectic, cooperative, disheveled, A&O X 3, pleasant, answers questions appropriately - Respiratory Respiratory exam: Present: CTAB. Absent: accessory muscle use, rales, rhonchi, wheezes - Cardiovascular Cardiovascular exam: Present: RRR, +S1, +S2. Absent: diastolic murmur, gallop, rubs, systolic murmur - GI/Abdominal GI/Abdominal exam: Present: normal bowel sounds, soft, no peritoneal signs. Absent: distended, tenderness - Extremities Exam Extremities exam: Present: warm, radial pulses palpable and symmetrical. Absent : calf tenderness, cyanotic, pedal edema - Neurological Exam Neurological exam: Present: alert, oriented X3, no focal deficits Internal Medicine: Result - Labs CBC & Chem 7: 10/14/17 06:00 10/14/17 06:00 Labs: Short CBC 10/14/17 Range/Units 06:00 WBC 10.8 (4.3-11.1) K/mcL Hgb 9.5 L (12.9-16.9) g/dL Hct 29.8 L (37.5-50.1) % Plt Count 232 (140-400) K/mcL Neutrophils # 9.3 H (1.6-8.9) K/mcL BMP 10/14/17 06:00 Sodium 142 Potassium 3.7 Chloride 116 H Carbon Dioxide 13 L BUN 37 H Creatinine 2.24 H Glucose 184 H Calcium 7.6 L - ABG Interpretation ABG results: PT/INR, D-dimer PT 12.1 Seconds (9.4-12.1) 10/10/17 03:25 Consult Discharge Plan - Plan Referrals: NONE,PCP [Primary Care Provider] - ([facility]) <Jeramie Gibbsvan - Last Filed: 10/14/17 19:52> Date of Encounter: 10/14/17 - Constitutional Vitals: Temp Pulse Resp BP Pulse Ox 97.5 F L 86 14 167/75 100 10/14/17 16:12 10/14/17 16:12 10/14/17 16:12 10/14/17 16:12 10/14/17 16:12 Internal Medicine: Result - Labs CBC & Chem 7: 10/14/17 06:00 10/14/17 06:00 Labs: Short CBC 10/14/17 Range/Units 06:00 WBC 10.8 (4.3-11.1) K/mcL Hgb 9.5 L (12.9-16.9) g/dL Hct 29.8 L (37.5-50.1) % Plt Count 232 (140-400) K/mcL Neutrophils # 9.3 H (1.6-8.9) K/mcL BMP 10/14/17 06:00 Sodium 142 Potassium 3.7 Chloride 116 H Carbon Dioxide 13 L BUN 37 H Creatinine 2.24 H Glucose 184 H Calcium 7.6 L - ABG Interpretation ABG results: PT/INR, D-dimer PT 12.1 Seconds (9.4-12.1) 10/10/17 03:25 - Attending Attestation I conducted a face to face diagnostic evaluation of this patient and my medical decision-making was reviewed with the Resident Physician, Dr Galdino Cardoza. I agree with the documented findings, disposition and treatment plan as described except to the extent set forth below: He is awake alert oriented, no acute distress. Heart is regular. Lung sounds are coarse. Plan: Continue with IV antibiotics. Discharge planning, likely home hospice tomorrow when he will have increased family support. I discussed the case with palliative care service who endorses the patient will likely be readmitted to hospice upon discharge from the hospital. All medical problems are new to me today.
[2017-10-14] MEDS: 0.9 % Sodium Chloride 1,000 ML IVC SCH (18:43)
[2017-10-15] MEDS: Insulin LISPRO 300 UNITS/3 ML VIAL SQ SCH (00:23)
[2017-10-15] MEDS: Piperacillin/Tazobactam 3.375 GM/200 ML BAG IVPB SCH ×2 (02:56→08:06)
[2017-10-15] MEDS: Ipratropium/Albuterol Neb 3 ML IH SCH ×4 (03:55→15:46)
[2017-10-15] MEDS: *HR* Heparin 5,000 UNIT/ML VIAL SQ SCH ×2 (06:53→07:53)
[2017-10-15 07:54] VITALS: BP 140/72
[2017-10-15] MEDS: Aspirin Enteric Coated 81 MG Tablet PO SCH (08:04)
--- NOTE | 2017-10-15 08:43 | Discharge Summary ---
Date of Encounter: 10/15/17 Time of Encounter: 08:42 - Discharge Diagnosis (1) NSTEMI (non-ST elevated myocardial infarction) Priority: Secondary Status: Acute (2) Hypertension Priority: Secondary Status: Chronic Qualifiers: Hypertension type: essential hypertension Qualified Code(s): I10 - Essential (primary) hypertension (3) Failure to thrive in adult Priority: Secondary Status: Chronic (4) DMII (diabetes mellitus, type 2) Priority: Secondary Status: Chronic Qualifiers: Diabetes mellitus complication status: with hyperglycemia Diabetes mellitus detention insulin use: without termite exterminator helper use Qualified Code(s): E11.65 - Type 2 diabetes mellitus with hyperglycemia (5) Schizophrenia Priority: Secondary Status: Chronic Qualifiers: Schizophrenia type: disorganized schizophrenia Qualified Code(s): F20.1 - Disorganized schizophrenia (6) Severe protein-calorie malnutrition Priority: Secondary Status: Chronic (7) Acute metabolic encephalopathy Priority: Secondary Status: Resolved (8) Aspiration pneumonia Priority: Secondary Status: Acute Qualifiers: Aspiration pneumonia type: unspecified Laterality: right Lung location: lower lobe of lung Qualified Code(s): J69.0 - Pneumonitis due to inhalation of food and vomit (9) Atrial fibrillation with RVR Priority: Secondary Status: Acute (10) OLGA (acute kidney injury) Priority: Secondary Status: Acute - Discharge Medications Prescriptions: Ipratropium/Albuterol Neb [Duoneb] 3 ml IH [id number] #60 inhsol OxyCODONE Immed Rel [Roxicodone 5 MG] 5 mg PO Q6HR PRN #20 tablet PRN Reason: Moderate to Severe Pain Amoxicillin/Clavulanate [Augmentin] 500 mg PO BIDWM #10 tablet Aspirin Enteric Coated [Aspirin EC] 81 mg PO DAILY #30 tablet. Metoprolol [Lopressor] 25 mg PO BID #60 tablet Home Medications: Lisinopril [Zestril] 10 mg PO DAILY tab 07/10/17 [Rx] Glimepiride [Amaryl] 2 mg PO QAM 10/10/17 [History] Haloperidol 0.5 mg PO BID 10/10/17 [History] Amoxicillin/Clavulanate [Augmentin] 500 mg PO BIDWM #10 tablet 10/15/17 [Rx] Aspirin Enteric Coated [Aspirin EC] 81 mg PO DAILY #30 tablet. 10/15/17 [Rx] Ipratropium/Albuterol Neb [Duoneb] 3 ml IH [id number] #60 inhsol 10/15/17 [Rx] Metoprolol [Lopressor] 25 mg PO BID #60 tablet 10/15/17 [Rx] OxyCODONE Immed Rel [Roxicodone 5 MG] 5 mg PO Q6HR PRN #20 tablet 10/15/17 [Rx] Allergies/Adverse Reactions: 3 Allergy/AdvReac Type Severity Reaction Status Date / Time No Known Allergies Allergy Verified 10/09/17 21:02 Procedures/tests Complete & Pending: Procedures Performed prior 72 hours Category Date Time Status Retroperitoneal Ultrasound - Complete [US Exams 10/13/17 14:30 Completed retroperitoneal comp] [US] Routine Date of admission: 10/10/17 01:32 Primary care physician: PCP NONE Consults: 10/10/17 01:45 Consult to Palliative Care [CONS] Routine Comment: Consulting Provider: [facility] [place] Reason for Consult: goals of care; possible Hospice transition Call Completed: No 10/10/17 15:51 Consult to Cardiology [CONS] Routine Comment: Consulting Provider: Cardiology [place] Reason for Consult: NSTEMI Call Completed: Yes 10/11/17 08:12 Consult to Occupational Therapy [CONS] Routine Comment: Evaluate, develop and implement POC Reason for Consult: D/C disposition, falls Consult to Physical Therapy [CONS] Routine Comment: Evaluate, develop and implement POC Reason for Consult: Discharge disposition, falls - Patient Status Disposition: Hospice - Home Condition: Serious Functional capacity at discharge: wheelchair bound Overall status at discharge: patient is progressing back to baseline - Discharge Instructions Follow Up With: NONE,PCP [Primary Care Provider] - ([facility]) Additional Instructions: f/u with hospice nurse Check blood glucose once daily in the morning and hold glipizide if blood glucose is below 90. Keep good oral hydration. - Diet and Activity Activity: increase activity as tolerated, wear oxygen at all times Diet: diabetic diet, low salt diet Hospital course: Please refer to progress notes and consultation notes for further details on this patient's hospitalization. Described below is an abbreviated hospital course. Mr. Grant is a 72 year old male who was brought into the ER by squad after being found unresponsive by home health aide. His glucose was in the 30s, and he was given glucagon and dextrose by squad. He has an extensive medical history including past medical history of DM type II , HTN, HLD, MCCARTNEY, failure to thrive, and schizophrenia. He was previously under hospice care. He was found to be in A. fib RVR. He was diagnosed with aspiration pneumonia for which she was treated with IV antibiotics. Cardiology was consulted. He was also diagnosed with non-ST elevation GA and acute kidney injury. Palliative was consulted and goals of care were addressed. CODE STATUS was changed to DNR/DNI. A noninvasive course of care was pursued and the patient continued to receive treatment with IV antibiotics and inhaled bronchodilators. He will be transitioned to oral antibiotics. He is at high risk for aspiration and signed a waiver to continue oral nutrition in spite of aspiration risk. He made a good clinical improvement. Currently he is in no acute distress, awake and alert, denies chest pain and shortness of breath. He is sitting up in bed and eating breakfast. Oxygen saturation is in the high 90s with supplemental oxygen by nasal cannula. Patient and family agreed to discharge home with home hospice. He will be enrolled in [facility] hospice later today. He is medically stable for discharge home. Prognosis is poor due to multiple medical comorbidities. I have spent 40 minutes coordinating this discharge today. - Time Spent with Patient Total time spent providing and/or coordinating discharge services: Greater than 30 minutes - Constitutional Vitals: Temp Pulse Resp BP Pulse Ox 97.8 F 82 16 140/72 98 10/15/17 07:49 10/15/17 07:49 10/15/17 07:49 10/15/17 07:49 10/15/17 07:49 General appearance: Present: cachectic, cooperative, disheveled, A&O X 3, pleasant, answers questions appropriately - Respiratory Respiratory exam: Present: decreased breath sounds, wheezes - Cardiovascular Cardiovascular exam: Present: irregular rhythm, +S1, +S2
[2017-10-15] MEDS ORDERED: *HR* OxyCODONE Immed Rel 5 MG TABLET PO PRN (09:36)
[2017-10-15] MEDS ORDERED: Acetaminophen 325 MG TABLET PO PRN (09:36)
--- NOTE | 2017-10-15 10:17 | Physician Discharge Referral ---
Home Health/Hosp Referral Info Transfer to: Hospice Provider in Charge Post Discharge: Nurse Staff [facility] - Diagnosis (1) NSTEMI (non-ST elevated myocardial infarction) Status: Acute (2) Hypertension Status: Chronic (3) Failure to thrive in adult Status: Chronic (4) DMII (diabetes mellitus, type 2) Status: Chronic (5) Schizophrenia Status: Chronic (6) Severe protein-calorie malnutrition Status: Chronic (7) Acute metabolic encephalopathy Status: Resolved (8) Aspiration pneumonia Status: Acute (9) Atrial fibrillation with RVR Status: Acute (10) OLGA (acute kidney injury) Status: Acute - Respiratory Orders Oxygen / L per min (3-5), Other (Check blood glucose every morning and hold glipizide if glucose below 90) Smoking Cessation: Smoking cessation has been advised. For more information, call the [employer] Tobacco Quit Line at 9-327-EQHC-NOW. - Diet/Nutrition Diet/Nutrition Orders: No Added Salt (ETSFAYE), Cardiac, No Concentrated Sweets - Activity Activity Orders: Chair - Transfer Medications Prescriptions: Ipratropium/Albuterol Neb [Duoneb] 3 ml IH [id number] #60 inhsol OxyCODONE Immed Rel [Roxicodone 5 MG] 5 mg PO Q6HR PRN #20 tablet PRN Reason: Moderate to Severe Pain Amoxicillin/Clavulanate [Augmentin] 500 mg PO BIDWM #10 tablet Aspirin Enteric Coated [Aspirin EC] 81 mg PO DAILY #30 tablet. Metoprolol [Lopressor] 25 mg PO BID #60 tablet Home Medications: Lisinopril [Zestril] 10 mg PO DAILY tab 07/10/17 [Rx] Glimepiride [Amaryl] 2 mg PO QAM 10/10/17 [History] Haloperidol 0.5 mg PO BID 10/10/17 [History] Amoxicillin/Clavulanate [Augmentin] 500 mg PO BIDWM #10 tablet 10/15/17 [Rx] Aspirin Enteric Coated [Aspirin EC] 81 mg PO DAILY #30 tablet. 10/15/17 [Rx] Ipratropium/Albuterol Neb [Duoneb] 3 ml IH [id number] #60 inhsol 10/15/17 [Rx] Metoprolol [Lopressor] 25 mg PO BID #60 tablet 10/15/17 [Rx] OxyCODONE Immed Rel [Roxicodone 5 MG] 5 mg PO Q6HR PRN #20 tablet 10/15/17 [Rx] Allergies/Adverse Reactions: 3 Allergy/AdvReac Type Severity Reaction Status Date / Time No Known Allergies Allergy Verified 10/09/17 21:02 Certification: Further, I certify that my clinical findings support that this patient is homebound (i.e. absences from home require considerable and taxing effort and are for medical reasons or sabianist services or infrequently or short duration when for other reasons) because: Homebound Reason: Patient requires assistance of a person or device to safely leave home, Absences from home are contraindicated except to recieve medical care, Leaving home requires considerable and taxing effort due to condition, Severity of cardiac or pulmonary status limits activity tolerance Attestation: My signature below is to certify that this patient is under my care and that I, or nurse practitioner, or a physician's case assistant working with me, has a face-to -face encounter with this patient.
== END 2017-10-15 17:00 | disposition hospice, home (50) | DRG 871 ==
LOC: 2ANU 20:57 → EMEROO 20:57 → 2ANU 10-10 00:18 → SUATTDRO 10-10 01:32
PROVIDERS: ADMIT Pediatrics; ATTEND Internal Medicine

== ENCOUNTER 2017-12-28 02:03 | Inpatient (IN) ==
[2017-12-28] MEDS ORDERED: 0.9 % Sodium Chloride 1,000 ML IVC ONE ×2 (02:16→04:35)
[2017-12-28] MEDS ORDERED: methylPREDNISolone 125 MG/2 ML VIAL IVP ONE (02:20)
[2017-12-28] MEDS ORDERED: Ipratropium/Albuterol Neb 3 ML IH ONE (02:20)
--- NOTE | 2017-12-28 02:39 | Emergency Department Note ---
Disposition Clinical Impression: Sepsis Qualifiers: Qualified Code(s): A41.9 - Disposition: Admitted As Inpatient Condition: Undetermined General Adult HPI - General Chief complaint: ED Shortness of Breath/Dyspnea Stated complaint: SHELLEY Time Seen by Provider: 12/28/17 02:16 Source: patient, family, EMS Mode of arrival: EMS Limitations: altered mental status, physical limitation (BiPap) Nursing Notes Reviewed: Yes Vital Signs Reviewed: Yes - History of Present Illness HPI Narrative: Patient presents with EMS for difficulty in breathing. History obtained from daughter. Medical history of cirrhosis, cancer (unknown where), dementia, and DM. No heart dx per family. 2 day history of difficulty in breathing and congestion that became worse tonight. Facial, hi-orbital, and neck edema is new for today, the arms and legs are chronic. Pt lives by himself but has family checking in on him multiple times a day and he has Hospice HH as well. He takes only 3 medications: ASA, a BP med, and Haldol. He is compliant with medications. Onset (ago): day(s) Location: chest, abdomen Pain Scale: 0 Improves with: nothing Worsens with: nothing - Related Data Home Medications Medication Instructions Recorded Confirmed Glimepiride [Amaryl] 2 mg PO QAM 10/10/17 10/10/17 Haloperidol 0.5 mg PO BID 10/10/17 10/10/17 Previous Rx's Medication Instructions Recorded Lisinopril [Zestril] 10 mg PO DAILY tab 07/10/17 Amoxicillin/Clavulanate [Augmentin] 500 mg PO BIDWM #10 tablet 10/15/17 Aspirin Enteric Coated [Aspirin EC] 81 mg PO DAILY #30 tablet. 10/15/17 Ipratropium/Albuterol Neb [Duoneb] 3 ml IH [id number] #60 inhsol 10/15/17 Metoprolol [Lopressor] 25 mg PO BID #60 tablet 10/15/17 OxyCODONE Immed Rel [Roxicodone 5 5 mg PO Q6HR PRN #20 tablet 10/15/17 MG] Allergies Allergy/AdvReac Type Severity Reaction Status Date / Time No Known Allergies Allergy Verified 10/09/17 21:02 All systems ED: reviewed and negative except as stated. Review of Systems: As Per HPI Constitutional: Reports: as per HPI. Denies: fever, chills Eyes: Reports: other (edema perioribital) Cardiovascular: Reports: edema. Denies: chest pain, palpitations, dyspnea on exertion, syncope Respiratory: Reports: as per HPI, cough, dyspnea, wheezes. Denies: hemoptysis, sputum production Gastrointestinal: Reports: as per HPI. Denies: abdominal pain, nausea, vomiting , diarrhea Genitourinary: Reports: as per HPI, other (chronic solis) Musculoskeletal: Reports: as per HPI. Denies: back pain, neck pain, joint swelling, arthralgia, myalgia Integumentary: Reports: as per HPI, other (open wounds to: right post ankle showing tendons, left heel with UTS ulcer, BUE and hands with multiple fluid filled blisters some ruptured, some not) Neurological: Reports: as per HPI. Denies: headache, weakness, numbness, paresthesias Past Medical History - Past Medical History Medical history: Reports: cancer, cirrhosis, diabetes, hyperlipidemia, hypertension, other Surgical history: Reports: other Psychiatric history: Reports: schizophrenia - Social History Smoking Status: Light tobacco smoker Smokeless Tobacco Status: No Alcohol use: Reports: none Drug use: Reports: none Physical Exam - General Limitations: altered mental status General appearance: alert, lethargic, in distress - Head Head exam: other (edema to hi-orbital areas) - Eye Eye exam: Present: PERRL, conjunctival injection, periorbital swelling. Absent : normal appearance, scleral icterus, periorbital tenderness - Neck Neck exam: Present: trachea midline, other (edema) - Chest Chest inspection: Present: normal inspection, symmetric chest wall rise - Respiratory Respiratory exam: Present: respiratory distress, wheezes, accessory muscle use, prolonged expiratory phase - Expanded Respiratory Exam Location: wheezes: Left, Right, Upper, Lower, rales: Lower, Upper, Right, Left, rhonchi: Left, Right, Upper, Lower, decreased breath sounds: Lower, Upper, Right , Left - Cardiovascular Cardiovascular exam: Present: normal rhythm, tachycardia, normal heart sounds - Abdominal Exam Abdominal exam: Present: soft, Non-Tender, normal bowel sounds - Extremities Exam Extremities exam: Present: normal capillary refill - Expanded Upper Extremity Exam Vascular exam: Normal: capillary refill, radial pulse, ulnar pulse - Expanded Lower Extremity Exam Neurovascular/Tendon exam: Present: normal capillary refill. Absent: pulse deficit Gait: not tested/not observed - Neurological Exam Neurological exam: Present: alert, oriented X3. Absent: CN II-XII intact ( unable to complete due toairway protection n BiPAP), normal gait, motor sensory deficit, reflexes normal - Psychiatric Psychiatric exam: Present: flat affect - Skin Skin exam: Present: dry, intact, normal color, other (BUE and hands with multiple fluid-filled this is a very stage of rupture; right posterior ankle wound open wound epidermis layers, left heel with unable to stage pressur.) Course Course Narrative: Patient presents with EMS for difficulty in breathing. History obtained from daughter. Medical history of cirrhosis, cancer (unknown where), dementia, and DM. No heart dx per family. 2 day history of difficulty in breathing and congestion that became worse tonight. Facial, hi-orbital, and neck edema is new for today, the arms and legs are chronic. Pt lives by himself but has family checking in on him multiple times a day and he has Hospice HH as well. He takes only 3 medications: ASA, a BP med, and Haldol. He is compliant with medications During last hospital visit pt was a DNRCCA-DNI, he had refused feeding tubes anddid not want to be intubated Pt is alert and oriented on the BiPap, he states that he has not been ill. Denies fevers, chills, N/V/D, pain. States edema has been there about 4-5 days. Denies recent ATB use. States difficulty in breathing for the last 4-5 days that has become progressively worse. CODE STATUS: Pt wishes to be a full code. He states that he does not want to . He understands that means he would recieve CPR should his heart stop and then be intubated and on a ventilator. Code status will be updated to reflect this. Exam revealed 72-year-old male is toxic appearing, with severe facial edema, bilateral upper extremity edema and bilateral lower treatment edema that appears in some respiratory distress with minimal airway protection. The patient is alert and oriented 3 and able to answer all questions. Respirations tachypneic ranging from 35-45 a minute and are shallow, patient immediately placed on BiPAP for airway management lungs with poor air movement noted to have wheezing in all lobes with rales and rhonchi. Edema noted to periorbital area, facial edema, edema to the neck, bilateral upper extremities and hands with edema right greater than left with multiple fluid-filled blisters in various stages of rupturing, some with skin peeled back revealing open wounds, bilateral lower extremities with edema right posterior ankle with a circular wound through the dermis exposing the tissue underneath without obvious drainage wound appears dry, left heel was unable to reach ulcer was covered with thick eschar; Chronic Solis with a sustained bag urine appears dark with a lot of sediment. Obvious concern is for sepsis as he has open wounds, chronic solis, adventitious lung sounds. He does meet SIRS criteria, will get labs, blood cultures, EKG and treat accordingly. We will start IV, give breathing treatments, and IV steroids. Due to the edema we are having difficulty obtaining IV access, we will have IV access placed by ultrasound if we are unable to do that we will consider central line in this patient wishes to remain a full code. - Reevaluation(s) Reevaluation #1: IV access Obtained via ultrasound patient moved to room 21 to prepare for possible intubation should his respiratory status declined any further. Patient continues to be tachypneic with and tachycardic but this remained alert and oriented and able to answer all questions and follow conversation. On the BiPAP at this time. After breathing treatment patient's lungs with much improvement however they still remain with rhonchi wheezes throughout. Chest x- ray shows possible pneumonia. Patient has been monitored with telemetry, continue his pulse ox, as well as nursing staff stay with patient. We will give a dose of Lasix to help decrease the edema and improved respiratory status. Labs in the room now to obtain labs and blood cultures, we will also start another line via ultrasound. EKG with SR, Signed by attending Dr. Mclaughlin who has had 1:1 facetime with patient and will remain involved in care. Time: 03:20 Reevaluation #2: Labs returned with a white count of 23.8, lactic acid 3.6, creatinine of 1.71, hgb/hct at baseline-chronically anemic, ABG without acidosis, pH 7.43. Blood cultures have been drawn, we will start broad spectrum ATB for sepsis. Pt remains tachycardic but respirations have decreased from 30-40 min to 25-30 in with much better air movement. Remains on BiPap. Will page hospitalist for admission at this time. Time: 04:40 Reevaluation #3: Hospitalist in to see patient. Will be placed in ICU for care. Vital Signs Temperature 0 F L 12/28/17 02:04 Pulse Rate 0 12/28/17 02:04 Respiratory Rate 22 12/28/17 02:04 Blood Pressure 0/0 12/28/17 02:04 O2 Sat by Pulse Oximetry 98 12/28/17 02:04 Temperature 99.3 F 12/28/17 03:46 Pulse Rate 118 12/28/17 05:00 Respiratory Rate 22 12/28/17 05:15 Blood Pressure 90/62 12/28/17 05:15 O2 Sat by Pulse Oximetry 98 12/28/17 05:00 Oxygen Delivery Oxygen Delivery Bipap Medical Decision Making - Medical Records Medical records reviewed: Yes I reviewed the patient's medical records. - Lab Data Lab results reviewed: Yes I reviewed the patient's lab results. Result diagrams: 12/28/17 04:00 12/28/17 04:00 Lab Results 12/28/17 12/28/17 12/28/17 Range/Units 02:24 04:00 04:00 WBC 23.8 H (4.3-11.1) K/mcL RBC 3.79 L (4.19-5.50) M/mcL Hgb 10.7 L (12.9-16.9) g/dL Hct 34.4 L (37.5-50.1) % MCV 90.8 (83.0-100.0) fL MCH 28.2 (28.0-33.3) pg MCHC 31.1 L (31.6-35.5) g/dL RDW 14.6 H (11.5-14.5) % Plt Count 506 H (140-400) K/mcL MPV 9.3 L (9.4-12.4) fL Immature Gran % 0.6 (0-4) % Seg Neutrophils % 90.4 % Lymphocytes % 4.0 % Monocytes % 4.7 % Eosinophils % 0.0 % Basophils % 0.3 % Neutrophils # 21.5 H (1.6-8.9) K/mcL Lymphocytes # 1.0 (0.6-4.6) K/mcL Monocytes # 1.1 (0.0-1.3) K/mcL Eosinophils # 0.0 (0.0-0.6) K/mcL Basophils # 0.1 (0.0-0.2) K/mcL Platelet Estimate Increased H (Normal) Kelechi Cells 1+ A (Not Present) PT 11.2 (9.4-12.1) Seconds INR 1.0 APTT 24.0 L (26.0-36.0) Seconds Sample Site ABG pH (7.32-7.45) pH Units ABG pCO2 (35-45) mmHg ABG pO2 (85-104) mmHg ABG HCO3 (21-27) mEq/L ABG Total CO2 (20-26) mEq/L ABG O2 Saturation (95-98) % ABG Base Excess (-2 to 3) mEq/L O2 Delivery Device Inspired O2 (1-15=lpm [id number]=%) PEEP cm H2O Sodium (136-145) mEq/L Potassium (3.5-5.1) mEq/L Chloride (98-107) mEq/L Carbon Dioxide (23-29) mEq/L BUN (8-23) mg/dL Creatinine (0.70-1.30) mg/dL Est GFR ( Amer) (> 60) Est GFR (Non-Af Amer) (> 60) BUN/Creatinine Ratio (6-26) Glucose (70-105) mg/dL POC Glucose 157 H (58-89) Calculated Osmolality (280-300) Lactic Acid (0.5-2.2) mmol/L Calcium (8.6-10.3) mg/dL Troponin I (< 0.04) ng/mL B-Natriuretic Peptide (Less than 100) pg/mL 12/28/17 12/28/17 12/28/17 Range/Units 04:00 04:00 04:00 WBC (4.3-11.1) K/mcL RBC (4.19-5.50) M/mcL Hgb (12.9-16.9) g/dL Hct (37.5-50.1) % MCV (83.0-100.0) fL MCH (28.0-33.3) pg MCHC (31.6-35.5) g/dL RDW (11.5-14.5) % Plt Count (140-400) K/mcL MPV (9.4-12.4) fL Immature Gran % (0-4) % Seg Neutrophils % % Lymphocytes % % Monocytes % % Eosinophils % % Basophils % % Neutrophils # (1.6-8.9) K/mcL Lymphocytes # (0.6-4.6) K/mcL Monocytes # (0.0-1.3) K/mcL Eosinophils # (0.0-0.6) K/mcL Basophils # (0.0-0.2) K/mcL Platelet Estimate (Normal) Kelechi Cells (Not Present) PT (9.4-12.1) Seconds INR APTT (26.0-36.0) Seconds Sample Site ABG pH (7.32-7.45) pH Units ABG pCO2 (35-45) mmHg ABG pO2 (85-104) mmHg ABG HCO3 (21-27) mEq/L ABG Total CO2 (20-26) mEq/L ABG O2 Saturation (95-98) % ABG Base Excess (-2 to 3) mEq/L O2 Delivery Device Inspired O2 (1-15=lpm sj63-766=%) PEEP cm H2O Sodium 140 (136-145) mEq/L Potassium 4.8 (3.5-5.1) mEq/L Chloride 113 H (98-107) mEq/L Carbon Dioxide 20 L (23-29) mEq/L BUN 39 H (8-23) mg/dL Creatinine 1.70 H (0.70-1.30) mg/dL Est GFR ( Amer) 48 L (> 60) Est GFR (Non-Af Amer) 40 L (> 60) BUN/Creatinine Ratio 23 (6-26) Glucose 148 H (70-105) mg/dL POC Glucose (58-89) Calculated Osmolality 302 H (280-300) Lactic Acid 3.6 H (0.5-2.2) mmol/L Calcium 7.8 L (8.6-10.3) mg/dL Troponin I 0.03 (< 0.04) ng/mL B-Natriuretic Peptide (Less than 100) pg/mL 12/28/17 12/28/17 Range/Units 04:00 04:23 WBC (4.3-11.1) K/mcL RBC (4.19-5.50) M/mcL Hgb (12.9-16.9) g/dL Hct (37.5-50.1) % MCV (83.0-100.0) fL MCH (28.0-33.3) pg MCHC (31.6-35.5) g/dL RDW (11.5-14.5) % Plt Count (140-400) K/mcL MPV (9.4-12.4) fL Immature Gran % (0-4) % Seg Neutrophils % % Lymphocytes % % Monocytes % % Eosinophils % % Basophils % % Neutrophils # (1.6-8.9) K/mcL Lymphocytes # (0.6-4.6) K/mcL Monocytes # (0.0-1.3) K/mcL Eosinophils # (0.0-0.6) K/mcL Basophils # (0.0-0.2) K/mcL Platelet Estimate (Normal) [place] Cells (Not Present) PT (9.4-12.1) Seconds INR APTT (26.0-36.0) Seconds Sample Site L Radial ABG pH 7.43 (7.32-7.45) pH Units ABG pCO2 28 L (35-45) mmHg ABG pO2 65 L (85-104) mmHg ABG HCO3 18 L (21-27) mEq/L ABG Total CO2 19 L (20-26) mEq/L ABG O2 Saturation 93 L (95-98) % ABG Base Excess -5 L (-2 to 3) mEq/L O2 Delivery Device BiPAP Inspired O2 60.0 (1-15=lpm mu60-486=%) PEEP 6 cm H2O Sodium (136-145) mEq/L Potassium (3.5-5.1) mEq/L Chloride (98-107) mEq/L Carbon Dioxide (23-29) mEq/L BUN (8-23) mg/dL Creatinine (0.70-1.30) mg/dL Est GFR ( Amer) (> 60) Est GFR (Non-Af Amer) (> 60) BUN/Creatinine Ratio (6-26) Glucose (70-105) mg/dL POC Glucose (58-89) Calculated Osmolality (280-300) Lactic Acid (0.5-2.2) mmol/L Calcium (8.6-10.3) mg/dL Troponin I (< 0.04) ng/mL B-Natriuretic Peptide 318 H (Less than 100) pg/mL - Radiology Data Radiology results reviewed: Yes I reviewed the patient's radiology results. Chest X-Ray 12/28/17 02:16 IMPRESSION: Increasing right lung base consolidative airspace disease compatible with pneumonia or atelectasis. Stable chronic bilateral interstitial opacities, likely fibrosis. Chronic elevated right hemidiaphragm. Chronic right pleural effusion or pleural thickening. D/ / Orion Hernandez / Orion Hernandez Interpreting Provider: Orion Hernandez Critical Care Time Critical Care Time: Yes Total Critical Care Time: 45 Attestation: Critical care performed: Time is exclusive of separately billable procedures. Time includes: direct patient care, patient reassessment, coordination of patient care, interpretation of data (laboratory data, radiology data, and respiratory data), review of patient's medical records, medical consultation and documentation of patient care. Procedures included in critical care time: Procedures excluded from critical care time: Attestation Statement - Attestation Attestation: I, Ajay Mclaughlin MD, personally evaluated this patient and discussed their management with the midlevel provider, PAC/ADMINISTRATIVE TECH. I reviewed the midlevel providers note and agree with the documented findings, medical decision making , and plan of care. 72 year old male presents to the ED with respiratory distress. Complains of increasing shortness of breath for several days. No chest pain. No fever. Swelling of face and neck earlier this evening but improved now. Patient placed on BiPap on arrival. On examination patient is an elderly male in moderate respiratory distress. Coarse diffuse bilateral inspiratory and expiratory rales and wheezes. Heart tachy and regular. Mild puffiness of face. Bilateral foot ulcers with foul odor. Labs reviewed. WBC 23.8 with 90.4% segs. Lactic acid 3.6. ABG pH 7.43. EKG NSR with short DE, ventricular rate 94, no acute ischemic changes. CXR right lower lobe pneumonia The hospitalist, Dr. Blanco, was consulted and accepted admission of the patient.
[2017-12-28] MEDS ORDERED: Furosemide 20 MG/2 ML VIAL IVP ONE ×2 (03:25→15:50)
[2017-12-28] MEDS ORDERED: Ipratropium/Albuterol Neb 3 ML ONE (03:38)
[2017-12-28] MEDS ORDERED: Piperacillin/Tazobactam 3.375 GM in 0.9 % Sodium Chloride Mini Bag 100 ML IVPB ONE (03:52)
[2017-12-28] MEDS ORDERED: Levofloxacin 750 MG/150 ML 750 MG/150 ML BAG IVPB ONE (03:52)
[2017-12-28 04:16] LABS: Basophils # 0.1 K/mcL (0.0-0.2); Basophils % 0.3 %; Hematocrit 34.4 % (37.5-50.1); Hemoglobin 10.7 g/dL (12.9-16.9); Immature Granulocytes % 0.6 % (0-4); Mean Corpuscular HGB Conc 31.1 g/dL (31.6-35.5); Mean Corpuscular Hemoglobin 28.2 pg (28.0-33.3); Mean Corpuscular Volume 90.8 fL (83.0-100.0); Mean Platelet Volume 9.3 fL (9.4-12.4); Monocytes # 1.1 K/mcL (0.0-1.3); Monocytes % 4.7 %; Neutrophils # 21.5 K/mcL (1.6-8.9); Platelet Count 506 K/mcL (140-400); Red Blood Count 3.79 M/mcL (4.19-5.50); Red Cell Distribution Width 14.6 % (11.5-14.5); Segmented Neutrophils % 90.4 %
[2017-12-28 04:20] LABS: Prothrombin Time 11.2 Seconds (9.4-12.1)
[2017-12-28 04:25] LABS: ABG Base Excess -5 mEq/L (-2 to 3); ABG HCO3 18 mEq/L (21-27); ABG Oxygen Saturation 93 % (95-98); ABG PCO2 28 mmHg (35-45); ABG PH 7.43 pH Units (7.32-7.45); ABG PO2 65 mmHg (85-104); ABG TCO2 19 mEq/L (20-26); Blood Gas PEEP 6 cm H2O
[2017-12-28 04:33] LABS: Calcium 7.8 mg/dL (8.6-10.3); Potassium 4.8 mEq/L (3.5-5.1)
[2017-12-28 04:54] LABS: Burr Cells 1+ (Not Present); Platelet Estimate Increased (Normal)
[2017-12-28] MEDS ORDERED: Ketorolac 15 MG/ML VIAL IVP PRN (05:22)
[2017-12-28] MEDS ORDERED: OXYCODONE Oral CONC 10 MG/0.5 ML ORAL.SYG SL PRN (05:22)
[2017-12-28] MEDS ORDERED: Acetaminophen 650 MG RECTAL SUPP RC PRN (05:22)
[2017-12-28] MEDS ORDERED: Naloxone 0.4 MG/ML INJ IVP PRN ×2 (05:22)
--- NOTE | 2017-12-28 05:44 | Internal Med History&Physical ---
Addendum entered and electronically signed by Joseph Sorto DO 06:54: Patient is a current everyday smoker. Unknown pk-yr history. When not medicated for his schizophrenia, he has a tendency to become violent. Original Note: <Joseph Sorto - Last Filed: 12/28/17 05:40> Date of Encounter: 12/28/17 Time of Encounter: 05:40 Assessment and Plan (1) Sepsis Current visit: Yes Status: Acute SIRS (+): tachycardia, tachypnea, leukocytosis Sepsis from pulmonary source - HCAP. Intake lactic acid 3.8. Will trend. Intake troponin 0.03 with no acute changes on EKG. Will trend troponin. Empiric Vancomycin, Cefepime, Levaquin. Qualifiers: Qualified Code(s): A41.9 - Sepsis, unspecified organism (2) Acute respiratory failure Current visit: Yes Status: Acute Secondary to HCAP. CPAP - patient is ventilating well. Needs assistance with oxygenation and work of breathing. No hx CHF. No hx COPD. Echo : LVEF 55%, mild LV diastolic dysfunction. Basal inferior hypokinesis of LV. No aortic stenosis or regurg. No mitral valve stenosis or regurg. No tricuspid regurg; tricuspid jet present. Pulm valve poorly visualized. Qualifiers: Qualified Code(s): J96.01 - Acute respiratory failure with hypoxia (3) HCAP (healthcare-associated pneumonia) Current visit: No Status: Acute Suspect HCAP given hospitalization in October 2018. Plan as above. (4) DVT prophylaxis Current visit: No Status: Inactive (5) Sacral decubitus ulcer, stage II Current visit: Yes Status: Acute Midline sacral decubitus ulcer; Stage II. Wound care consulted. (6) Foot ulcer Current visit: No Status: Acute Right lateral malleoli; stage IV. Left posterior heel; stage III. Wound care consulted. Qualifiers: Laterality: unspecified laterality Non-pressure ulcer stage: unspecified non-pressure ulcer stage Qualified Code(s): L97.509 - Non-pressure chronic ulcer of other part of unspecified foot with unspecified severity Internal Medicine - H&P: HPI Chief complaint: Dyspnea Admitted From: Emergency Dept History of present illness: Mr. Grant is a 72 year old male, presents from home to the ED with his daughter bedside. What initially concerned the daughter was his facial edema which lasted appx 4 hrs before spontaneously resolving just prior to ER arrival. He has 1 week history of increased generalized swelling, 1 week history of 'chest congestion,' and 2 day history of dyspnea with coarse sounding breathing and dry cough. Patient lives by himself at home; his daughter checks on him BID. He has hospice home health nurse. ROS: No fever, chills, nausea, vomiting. No chest pain, palpitations, diaphoresis, unusual back pain. PMH: FTT however daughter and hospice nursing have encouraged PO intake. Aspiration pneumonia with subsequent NSTEMI [facility] discharged 04/27 NSTEMI DM II on no antihyperglycemics. Schizophrenia on halodol. A. Fib RVR. No home anticoagulation. Aspirin only. Rate control with metoprolol. Past Med Surg Social Fam HX - Past Medical History Medical history: cancer, cirrhosis, diabetes, hyperlipidemia, hypertension, other Psychiatric history: schizophrenia - Past Surgical History Surgical History: other - Social History Smoking Status: Light tobacco smoker Smokeless Tobacco Status: No Alcohol use: none Drug use: none - Family History Mother Living Status: Hx Family Cancer: Yes (breast) Hx Family Neurologic Disorders: Yes (alzheimer/dementia) Father Living Status: Internal Medicine - H&P: Meds Lisinopril [Zestril] 10 mg PO DAILY tab 07/10/17 [Rx] Glimepiride [Amaryl] 2 mg PO QAM 10/10/17 [History] Haloperidol 0.5 mg PO BID 10/10/17 [History] Amoxicillin/Clavulanate [Augmentin] 500 mg PO BIDWM #10 tablet 10/15/17 [Rx] Aspirin Enteric Coated [Aspirin EC] 81 mg PO DAILY #30 tablet. 10/15/17 [Rx] Ipratropium/Albuterol Neb [Duoneb] 3 ml IH [id number] #60 inhsol 10/15/17 [Rx] Metoprolol [Lopressor] 25 mg PO BID #60 tablet 10/15/17 [Rx] OxyCODONE Immed Rel [Roxicodone 5 MG] 5 mg PO Q6HR PRN #20 tablet 10/15/17 [Rx] 3 Allergy/AdvReac Type Severity Reaction Status Date / Time No Known Allergies Allergy Verified 10/09/17 21:02 All Systems PM: A 10-system review of systems was performed and is negative for pertinent findings except as documented above in the HPI. - Constitutional Constitutional: weakness, no chills, no fever(s), no falls - EENT Eyes: no change in vision Nose, mouth and throat: no throat swelling, no tongue swelling Additional comments: Swelling of face reported by daughter (picture on her cell phone). - Cardiovascular Cardiovascular ROS IM: no chest pain, no lightheadedness, no palpitations, no syncope - Respiratory Respiratory: cough, dyspnea, dyspnea on exertion, no hemoptysis, no wheezing, no pain on inspiration, no pain with cough - Gastrointestinal Gastrointestinal: no abdominal pain, no change in bowel habits, no hematochezia , no melena - Genitourinary Genitourinary ROS male: no dysuria - Integumentary Integumentary IM: skin ulcer, sores, no erythema, no new lesions - Constitutional Vitals: Temp Pulse Resp BP Pulse Ox 99.3 F 118 32 90/57 98 12/28/17 03:46 12/28/17 05:00 12/28/17 03:46 12/28/17 05:00 12/28/17 05:00 General appearance: Present: A&O X 3, obese, answers questions appropriately Exam: moderate respiratory distress though comfortable on BiPap. - Head Head exam: Present: atraumatic, normocephalic - Eye Eye exam: Present: EOMI, normal appearance, PERRL, sclera anicteric - ENT ENT exam: Present: mucous membranes moist - Neck Neck exam general surgery: Present: normal inspection, supple - Respiratory Respiratory exam: Present: rales, rhonchi. Absent: chest wall tenderness, respiratory distress Additional comments: Examination on BiPap - Cardiovascular Cardiovascular exam: Present: RRR, systolic murmur. Absent: clicks, gallop - GI/Abdominal GI/Abdominal exam: Present: normal bowel sounds, soft. Absent: distended, guarding, rigid, tenderness - Rectal Rectal exam: Present: hemorrhoids. Absent: black stool, bloody stool - exam: Present: circumcision, normal inspection - Neurological Exam Neurological exam: Present: alert, CN II-XII intact, oriented X3, no focal deficits. Absent: facial droop, speech deficit - Skin Additional comments: Skin dry and cool. Sacral decubitus ulcer - Stage 2. Right lateral malleoli ulcer - Stage 4. Left posterior heel ulcer - stage 3. Internal Med - H&P Results - Labs CBC & Chem 7: 12/28/17 04:00 12/28/17 04:00 - EKG Data -: EKG Interpreted by Myself EKG shows normal: sinus rhythm, axis (normal), intervals (OR short at 118ms), ST -T waves (non-specific. No acute ischemic change compared to previous.) Rate: normal (94) - EKG Data Prior EKG available for review: yes When compared to previous EKG: there is no significant change - Diagnostic Studies Other Images Additional comments: Chest X-Ray 12/28/17 02:16 IMPRESSION: Increasing right lung base consolidative airspace disease compatible with pneumonia or atelectasis. Stable chronic bilateral interstitial opacities, likely fibrosis. Chronic elevated right hemidiaphragm. Chronic right pleural effusion or pleural thickening. D/ / Orion Hernandez / Orion Hernandez Interpreting Provider: Orion Hernandez <Jaya Blanco P - Last Filed: 12/28/17 06:58> Date of Encounter: 12/28/17 Internal Medicine - H&P: HPI History of present illness: Mr. Grant is a 72 year old male All Systems PM: A 10-system review of systems was performed and is negative for pertinent findings except as documented above in the HPI. - Constitutional Vitals: Temp Pulse Resp BP Pulse Ox 99.3 F 118 22 90/62 98 12/28/17 03:46 12/28/17 05:00 12/28/17 05:15 12/28/17 05:15 12/28/17 05:00 Internal Med - H&P Results - Labs CBC & Chem 7: 12/28/17 04:00 12/28/17 04:00 Labs: Cardiac Enzymes 12/28/17 Range/Units 05:50 Troponin I 0.03 (< 0.04) ng/mL - ABG Interpretation ABG results: 12/28/17 06:15 ABG pH 7.42 ABG pCO2 27 L ABG pO2 82 L ABG HCO3 17 L ABG Total CO2 18 L ABG O2 Saturation 96 ABG Base Excess -6 L - Attending Attestation I examined this patient and my medical decision-making was reviewed with the Resident Physician. I agree with the documented findings, disposition and treatment plan as described except to the extent set forth below. Agree with assessment and plan presented by resident. will get Pulmonary evaluation
[2017-12-28 06:18] LABS: ABG Base Excess -6 mEq/L (-2 to 3); ABG HCO3 17 mEq/L (21-27); ABG Oxygen Saturation 96 % (95-98); ABG PCO2 27 mmHg (35-45); ABG PH 7.42 pH Units (7.32-7.45); ABG PO2 82 mmHg (85-104); ABG TCO2 18 mEq/L (20-26); Blood Gas PEEP 6 cm H2O
[2017-12-28 06:24] LABS: Magnesium 1.9 mg/dL (1.6-2.6); Phosphorous 5.5 mg/dL (2.7-4.5)
[2017-12-28] MEDS ORDERED: *HR* FentaNYL (PF) 100 MCG/2 ML VIAL IVP ONE ×2 (06:39→15:44)
[2017-12-28 07:23] LABS: Alanine Aminotransferase 8 Units/L (7-52); Albumin < 1.5 g/dL (3.5-5.7); Alkaline Phosphatase 143 Units/L (34-104); Aspartate Amino Transferase 16 Units/L (13-39); Bilirubin,Direct 0.1 mg/dL (0.0-0.2); Bilirubin,Indirect 0.1 mg/dL (0.0-1.2); Bilirubin,Total 0.2 mg/dL (0.3-1.0); Total Protein 4.5 g/dL (6.4-8.9)
--- NOTE | 2017-12-28 07:36 | Pulmonology Consult Note ---
<Joseph Sorto - Last Filed: 12/28/17 07:34> Date of Encounter: 12/28/17 Time of Encounter: 07:34 Assessment and Plan (1) Sepsis Current Visit: Yes Status: Acute SIRS (+): tachycardia, tachypnea, leukocytosis Sepsis from pulmonary source; likely aspiration pneumonia. Empiric antibiotics: Vancomycin, levaquin, cefepime Fluid resuscitation: 1L 0.9NS + Albumin. Given hx hepatic cirrhosis, suspect low oncotic pressure thus colloid resuscitation with cautious crystalloid drips. Mentation is appropriate; no hepatic encephalopathy. Will hold on ammonia levels. Intake lactate 3.8. Will trend. Leukocytosis to 23.8. Will trend. Qualifiers: Qualified Code(s): A41.9 - Sepsis, unspecified organism (2) Aspiration pneumonia Current Visit: No Status: Acute CXR RLL atelectasis. Hx aspiration pneumonia. Plan as above. Qualifiers: Aspiration pneumonia type: unspecified Laterality: right Lung location: lower lobe of lung Qualified Code(s): J69.0 - Pneumonitis due to inhalation of food and vomit (3) Acute respiratory failure Current Visit: Yes Status: Acute On CPAP. Patient allows intubation if needed. Previously on BiPap. ABC CO2 low; patient ventilating well. Switched to CPAP. Qualifiers: Qualified Code(s): J96.01 - Acute respiratory failure with hypoxia (4) DVT prophylaxis Current Visit: No Status: Inactive SCDs. (5) Sacral decubitus ulcer, stage II Current Visit: Yes Status: Acute Midline sacral decubitus ulcer - stage II Wound care consulted. (6) Foot ulcer Current Visit: No Status: Acute Left posterior heel ulcer - stage III. Right lateral malleoli ulcer - stage IV. Wound care consulted. Qualifiers: Laterality: unspecified laterality Non-pressure ulcer stage: unspecified non-pressure ulcer stage Qualified Code(s): L97.509 - Non-pressure chronic ulcer of other part of unspecified foot with unspecified severity History of Present Illness Consult date: 12/28/17 Requesting physician: Jaya Blanco Chief complaint: Dyspena History of present illness: Mr. Grant is a 72 year old male, presents from home to the ED with his daughter bedside. What initially concerned the daughter was his facial edema which lasted appx 4 hrs before spontaneously resolving just prior to ER arrival. He has 1 week history of increased generalized swelling, 1 week history of 'chest congestion,' and 2 day history of dyspnea with coarse sounding breathing and dry cough. Patient lives by himself at home; his daughter checks on him BID. He has hospice home health nurse. PMH: FTT however daughter and hospice nursing have encouraged PO intake. Aspiration pneumonia with subsequent NSTEMI discharged from [facility] discharged 04/27 NSTEMI DM II on no antihyperglycemics. Schizophrenia on halodol - known to become violent when not medicated A. Fib RVR. No home anticoagulation. Aspirin only. Rate control with metoprolol. Hepatic cirrhosis Past Med Surg Social Fam HX - Past Medical History Medical history: cancer, cirrhosis, diabetes, hyperlipidemia, hypertension, other Psychiatric history: schizophrenia - Past Surgical History Surgical History: other - Social History Smoking Status: Light tobacco smoker Smokeless Tobacco Status: No Alcohol use: none Drug use: none - Family History Mother Living Status: Hx Family Cancer: Yes (breast) Hx Family Neurologic Disorders: Yes (alzheimer/dementia) Father Living Status: Medications and Allergies Lisinopril [Zestril] 10 mg PO DAILY tab 07/10/17 [Rx] Glimepiride [Amaryl] 2 mg PO QAM 10/10/17 [History] Haloperidol 0.5 mg PO BID 10/10/17 [History] Amoxicillin/Clavulanate [Augmentin] 500 mg PO BIDWM #10 tablet 10/15/17 [Rx] Aspirin Enteric Coated [Aspirin EC] 81 mg PO DAILY #30 tablet. 10/15/17 [Rx] Ipratropium/Albuterol Neb [Duoneb] 3 ml IH [id number] #60 inhsol 10/15/17 [Rx] Metoprolol [Lopressor] 25 mg PO BID #60 tablet 10/15/17 [Rx] OxyCODONE Immed Rel [Roxicodone 5 MG] 5 mg PO Q6HR PRN #20 tablet 10/15/17 [Rx] 3 Allergy/AdvReac Type Severity Reaction Status Date / Time No Known Allergies Allergy Verified 10/09/17 21:02 All Systems: A 10-system review of systems was performed and is negative for pertinent findings except as documented above in the HPI. - Constitutional Constitutional: no anorexia - Cardiovascular Cardiovascular: edema, no chest pain, no diaphoresis, no palpitations - Respiratory Respiratory: cough, dyspnea, no hemoptysis, no wheezing, no pain with cough - Gastrointestinal Gastrointestinal: no abdominal pain, no diarrhea, no hematochezia, no nausea, no vomiting - Neurological Neurological: no abnormal speech, no confusion, no numbness, no sensory deficit - Hematologic/Lymphatic Hematologic/Lymphatic: no easy bleeding, no easy bruising - Allergic/Immunologic Allergic/Immunologic: other (facial swelling reported by daughter) Physical Examination Vital Signs: Vital Signs, Last 4 Hours Pulse Resp BP Pulse Ox 12/28/17 05:15 22 90/62 12/28/17 05:00 118 90/57 98 General appearance: no acute distress, alert Eyes: nonicteric ENT: oropharynx dry Neck: supple Effort: normal Inspection: normal Auscultation: bilateral: rales, rhonchi Cardiovascular: regular rate and rhythm Gastrointestinal: normoactive bowel sounds, soft Integumentary: decubitus ulcer, other (Skin thin and friable. Superficial wounds over bilateral hands. Midline sacral debubitus ulcer - Stage II. Left posterior heel ulcer - stage III. Right lat malleoli ulcer - Stage IV.) Extremities: no clubbing, pink and warm, pulses normal, edema (1+ BL pitting pedal edema.) Musculoskeletal: no deformities normal mental status, non-focal exam mood appropriate Results - Laboratory Findings CBC and BMP: 12/28/17 04:00 12/28/17 04:00 ABG ABG pH 7.42 pH Units (7.32-7.45) 12/28/17 06:15 ABG pCO2 27 mmHg (35-45) L 12/28/17 06:15 ABG pO2 82 mmHg (85-104) L 12/28/17 06:15 ABG O2 Saturation 96 % (95-98) 12/28/17 06:15 PT/INR, D-dimer PT 11.2 Seconds (9.4-12.1) 12/28/17 04:00 Abnormal lab findings: Abnormal lab results WBC 23.8 K/mcL (4.3-11.1) H 12/28/17 04:00 RBC 3.79 M/mcL (4.19-5.50) L 12/28/17 04:00 Hgb 10.7 g/dL (12.9-16.9) L 12/28/17 04:00 Hct 34.4 % (37.5-50.1) L 12/28/17 04:00 MCHC 31.1 g/dL (31.6-35.5) L 12/28/17 04:00 RDW 14.6 % (11.5-14.5) H 12/28/17 04:00 Plt Count 506 K/mcL (140-400) H 12/28/17 04:00 MPV 9.3 fL (9.4-12.4) L 12/28/17 04:00 Neutrophils # 21.5 K/mcL (1.6-8.9) H 12/28/17 04:00 Platelet Estimate Increased (Normal) H 12/28/17 04:00 [place] Cells 1+ (Not Present) A 12/28/17 04:00 APTT 24.0 Seconds (26.0-36.0) L 12/28/17 04:00 ABG pCO2 27 mmHg (35-45) L 12/28/17 06:15 ABG pO2 82 mmHg (85-104) L 12/28/17 06:15 ABG HCO3 17 mEq/L (21-27) L 12/28/17 06:15 ABG Total CO2 18 mEq/L (20-26) L 12/28/17 06:15 ABG Base Excess -6 mEq/L (-2 to 3) L 12/28/17 06:15 Chloride 113 mEq/L (98-107) H 12/28/17 04:00 Carbon Dioxide 20 mEq/L (23-29) L 12/28/17 04:00 BUN 39 mg/dL (8-23) H 12/28/17 04:00 Creatinine 1.70 mg/dL (0.70-1.30) H 12/28/17 04:00 Est GFR ( Amer) 48 (> 60) L 12/28/17 04:00 Est GFR (Non-Af Amer) 40 (> 60) L 12/28/17 04:00 Glucose 148 mg/dL (70-105) H 12/28/17 04:00 POC Glucose 157 (58-89) H 12/28/17 02:24 Calculated Osmolality 302 (280-300) H 12/28/17 04:00 Lactic Acid 3.5 mmol/L (0.5-2.2) H 12/28/17 05:50 Calcium 7.8 mg/dL (8.6-10.3) L 12/28/17 04:00 Phosphorus 5.5 mg/dL (2.7-4.5) H 12/28/17 05:50 Total Bilirubin 0.2 mg/dL (0.3-1.0) L 12/28/17 05:50 Alkaline Phosphatase 143 Units/L (34-104) H 12/28/17 05:50 B-Natriuretic Peptide 318 pg/mL (Less than 100) H 12/28/17 04:00 Serum Total Protein 4.5 g/dL (6.4-8.9) L 12/28/17 05:50 Albumin < 1.5 g/dL (3.5-5.7) L 12/28/17 05:50 - Diagnostic Findings Chest x-ray: report reviewed, image reviewed Consult Discharge Plan - Plan Referrals: NONE,PCP [Primary Care Provider] - <Janelle Saravia - Last Filed: 12/28/17 09:51> Date of Encounter: 12/28/17 All Systems: A 10-system review of systems was performed and is negative for pertinent findings except as documented above in the HPI. Physical Examination Vital Signs: Vital Signs, Last 4 Hours Temp Pulse Resp BP Pulse Ox 12/28/17 08:16 110 96 12/28/17 08:09 27 110/68 98 12/28/17 08:00 96.7 F L 110 28 110/68 96 12/28/17 07:00 115 26 96/86 97 Results - Laboratory Findings CBC and BMP: 12/28/17 04:00 12/28/17 04:00 ABG ABG pH 7.42 pH Units (7.32-7.45) 12/28/17 06:15 ABG pCO2 27 mmHg (35-45) L 12/28/17 06:15 ABG pO2 82 mmHg (85-104) L 12/28/17 06:15 ABG O2 Saturation 96 % (95-98) 12/28/17 06:15 PT/INR, D-dimer PT 11.2 Seconds (9.4-12.1) 12/28/17 04:00 Abnormal lab findings: Abnormal lab results WBC 23.8 K/mcL (4.3-11.1) H 12/28/17 04:00 RBC 3.79 M/mcL (4.19-5.50) L 12/28/17 04:00 Hgb 10.7 g/dL (12.9-16.9) L 12/28/17 04:00 Hct 34.4 % (37.5-50.1) L 12/28/17 04:00 MCHC 31.1 g/dL (31.6-35.5) L 12/28/17 04:00 RDW 14.6 % (11.5-14.5) H 12/28/17 04:00 Plt Count 506 K/mcL (140-400) H 12/28/17 04:00 MPV 9.3 fL (9.4-12.4) L 12/28/17 04:00 Neutrophils # 21.5 K/mcL (1.6-8.9) H 12/28/17 04:00 Platelet Estimate Increased (Normal) H 12/28/17 04:00 [place] Cells 1+ (Not Present) A 12/28/17 04:00 APTT 24.0 Seconds (26.0-36.0) L 12/28/17 04:00 ABG pCO2 27 mmHg (35-45) L 12/28/17 06:15 ABG pO2 82 mmHg (85-104) L 12/28/17 06:15 ABG HCO3 17 mEq/L (21-27) L 12/28/17 06:15 ABG Total CO2 18 mEq/L (20-26) L 12/28/17 06:15 ABG Base Excess -6 mEq/L (-2 to 3) L 12/28/17 06:15 Chloride 113 mEq/L (98-107) H 12/28/17 04:00 Carbon Dioxide 20 mEq/L (23-29) L 12/28/17 04:00 BUN 39 mg/dL (8-23) H 12/28/17 04:00 Creatinine 1.70 mg/dL (0.70-1.30) H 12/28/17 04:00 Est GFR ( Amer) 48 (> 60) L 12/28/17 04:00 Est GFR (Non-Af Amer) 40 (> 60) L 12/28/17 04:00 Glucose 148 mg/dL (70-105) H 12/28/17 04:00 POC Glucose 157 (58-89) H 12/28/17 02:24 Calculated Osmolality 302 (280-300) H 12/28/17 04:00 Lactic Acid 3.5 mmol/L (0.5-2.2) H 12/28/17 05:50 Calcium 7.8 mg/dL (8.6-10.3) L 12/28/17 04:00 Phosphorus 5.5 mg/dL (2.7-4.5) H 12/28/17 05:50 Total Bilirubin 0.2 mg/dL (0.3-1.0) L 12/28/17 05:50 Alkaline Phosphatase 143 Units/L (34-104) H 12/28/17 05:50 B-Natriuretic Peptide 318 pg/mL (Less than 100) H 12/28/17 04:00 Serum Total Protein 4.5 g/dL (6.4-8.9) L 12/28/17 05:50 Albumin < 1.5 g/dL (3.5-5.7) L 12/28/17 05:50 - Clinical Findings Intake & Output: Intake & Output 12/27/17 12/28/17 12/28/17 23:59 07:59 15:59 Output Total 0 / 0 Balance 0 / 0 - Attending Attestation I examined this patient and my medical decision-making was reviewed with the Resident Physician. I agree with the documented findings, disposition and treatment plan as described except to the extent set forth below. Patient seen and examined. Labs, radiology, chart personally reviewed. Agree with resident's history and physical, assessment, plan with following comments: [employer]: Patient does follows commands, Pulmonary: Acceptable oxygenation and ventilation and he needs NIV for now. Patient was in hospice according to family and now he is full code. He agrees if his condition worsen, then he can be on the ventilator. Palliative care consult will be considered. Cardiovascular: stable GI: Nutrition per dietary and GI prophylaxis per routine. Patient has history of liver cirrohsis, but not clear the reason. Heme: DVT prophylaxis per routine ID: Continue antibiotics and plan to de-escalation Renal; urine out put and renal funtion reviewed Endorcine: blood glucose is monitored Lines: all lines checked and no evidence of infections Skin: skin care to prevent pressure ulcers per nursing routine care. Patient has multiple wounds and pressure ulcer on admission. Please refer to RN note regarding the stages and locations. Those have been examined personally.
[2017-12-28] MEDS ORDERED: Dextrose Gel 15 GM/37.5 ML TUBE PO PRN ×2 (07:53)
[2017-12-28] MEDS ORDERED: D5% in Water 1,000 ML IVC PRN (07:53)
[2017-12-28] MEDS: Cefepime HCl 2,000 MG in Water for inj. (sterile) 20 ML 20 ML IVPB SCH ×2 (08:03→16:03)
[2017-12-28] MEDS: Pantoprazole 40 MG VIAL IVP SCH (08:04)
[2017-12-28] MEDS ORDERED: 0.9 % Sodium Chloride 1,000 ML IVC SCH (08:30)
[2017-12-28] MEDS: Insulin LISPRO 300 UNITS/3 ML VIAL SQ SCH ×2 (11:07→18:11)
[2017-12-28] MEDS ORDERED: Levofloxacin 750 MG/150 ML 750 MG/150 ML BAG IVPB SCH (18:00)
[2017-12-28] MEDS ORDERED: *HR* Adenosine 6 MG/2 ML VIAL IVP ONE ×3 (19:44→19:48)
[2017-12-28] MEDS ORDERED: *HR* Metoprolol 5 MG/5 ML VIAL IVP ONE (19:54)
[2017-12-28] MEDS ORDERED: *HR* Metoprolol 5 MG/5 ML VIAL IVP PRN (20:13)
[2017-12-28] MEDS: *HR* FentaNYL (PF) 100 MCG/2 ML VIAL IVP PRN (20:37)
[2017-12-28] MEDS ORDERED: *HR* Metoprolol 5 MG/5 ML VIAL IVP SCH (21:00)
[2017-12-28] MEDS: Haloperidol Lactate 5 MG/ML VIAL IVP SCH (22:04)
[2017-12-29] MEDS: Ipratropium/Albuterol Neb 3 ML IH SCH ×7 (00:05→23:58)
[2017-12-29] MEDS: Insulin LISPRO 300 UNITS/3 ML VIAL SQ SCH ×5 (00:28→23:53)
[2017-12-29] MEDS: Cefepime HCl 2,000 MG in Water for inj. (sterile) 20 ML 20 ML IVPB SCH ×2 (00:42→08:08)
[2017-12-29] MEDS: *HR* FentaNYL (PF) 100 MCG/2 ML VIAL IVP PRN ×4 (03:28→22:59)
[2017-12-29 04:53] LABS: Bilirubin,Urine Small (Negative); Blood,Urine Moderate (Negative); Clarity,Urine Turbid (Clear); Color,Urine Dark Yellow (Yellow); Glucose,Urine (UA) 250 mg/dL (Normal); Ketones,Urine Negative (Negative); Leukocyte Esterase,Urine Small (Negative); Nitrite,Urine Negative (Negative); PH,Urine 5.5 pH Units (5.0-8.0); Protein,Urine >=300 mg/dL (Neg-Trace); Specific Gravity,Urine 1.028 (1.010-1.025); Urobilinogen,Urine Normal (Normal)
--- NOTE | 2017-12-29 04:57 | Pulmonology Progress Note ---
<Joseph Sorto - Last Filed: 12/29/17 07:18> Date of Encounter: 12/29/17 Time of Encounter: 07:22 Assessment and Plan (1) Sepsis Current Visit: Yes Status: Acute SIRS (+): tachycardia, tachypnea, leukocytosis Sepsis from pulmonary source - HCAP. Intake lactic acid 3.8. Will trend. Intake troponin 0.03 with no acute changes on EKG. Empiric Vancomycin, Cefepime, Levaquin. Qualifiers: Qualified Code(s): A41.9 - Sepsis, unspecified organism (2) Aspiration pneumonia Current Visit: No Status: Acute Plan as above Qualifiers: Aspiration pneumonia type: unspecified Laterality: right Lung location: lower lobe of lung Qualified Code(s): J69.0 - Pneumonitis due to inhalation of food and vomit (3) Acute respiratory failure Current Visit: Yes Status: Acute Secondary to HCAP. CPAP - patient is ventilating well. Needs assistance with oxygenation and work of breathing. No hx CHF. No hx COPD. Echo : LVEF 55%, mild LV diastolic dysfunction. Basal inferior hypokinesis of LV. No aortic stenosis or regurg. No mitral valve stenosis or regurg. No tricuspid regurg; tricuspid jet present. Pulm valve poorly visualized. Qualifiers: Qualified Code(s): J96.01 - Acute respiratory failure with hypoxia (4) SVT (supraventricular tachycardia) Current Visit: Yes Status: Acute Spontaneously went into SVT. Narrow QRS and patient was stable and alert. Refractory to amiodarone 6mg and 12mg IV rapid pushes. Converted to NSR with Lopressor 5mg IV. Maintenance with 5mg Lopressor IV q6hr. Patient is NPO and failed bedside dysphagia screen. (5) Elevated troponin Current Visit: No Status: Acute Serial troponin trending up. Now 1.32 (0.9, 0.06). Patient is/was chest pain free throughout his stay. EKG at 01:37 (trop 0.9) interpreted as sinus rhythm with 1mm ST depression in V2 , V3, V4 with T-wave inversion in V1 and V2. EKG at 05:48 (trop 1.32) interpreted as sinus rhythm with 1mm ST depression in V3, V4, V5 with T-wave inversion in V1 and V2. Patient given rectal aspirin. Held on heparin at this time secondary to decrease in hemoglobin to 8.4 (10.7). Patient has chronic anemia; baseline 9-11. Suspect secondary to occult bleed , acute illness, dilutional. No hematochezia, melena, hemetemesis. Clinically suspect demand ischemia secondary from the patient's sepsis and respiratory failure. Will continue to monitor. Cardiology consulted this AM. (6) Sacral decubitus ulcer, stage II Current Visit: Yes Status: Acute Midline sacral decubitus ulcer; Stage II. Bandage clean and dry. Wound care consulted. (7) Foot ulcer Current Visit: No Status: Acute Right lateral malleoli; stage IV. Left posterior heel; stage III. Bandages clean and dry. Wound care consulted. Qualifiers: Laterality: unspecified laterality Non-pressure ulcer stage: unspecified non-pressure ulcer stage Qualified Code(s): L97.509 - Non-pressure chronic ulcer of other part of unspecified foot with unspecified severity Subjective Interval history: Mr. Grant, a 72yo male, is admitted for sepsis and acute respiratory failure secondary to aspiration pneumonia. He has a history of dysphagia and aspiration pneumonia. Hospital day 2 From a pulmonary standpoint, he continues to do well on BiPap. He did spontaneously go into SVT (narrow QRS, stable). Refractory to amiodarone 6mg and 12mg. Responded to Lopressor 5mg IV. He is NPO secondary to dysphagia; maintained his rhythm with Lopresor 5mg IV Q6HR EMIR. Troponin jumped to 0.9 likely demand ischemia from SVT; no CP. Repeat troponin increased to 1.3. His pressure and rhythm have since been appropriate. I discussed this with [facility] cardiology; he agrees to see the patient today on consult. Patient repeatedly asks for a drink of water. It is repeatedly explained to him the rationale of NPO including reminging him of his recent admission for aspiration pneumonia caused by dysphagia. Objective PUL Vital signs: Last Vital Signs Temp 98.7 F 12/29/17 00:24 Pulse 90 12/29/17 04:00 Resp 16 12/29/17 04:00 BP 102/59 12/29/17 03:57 Pulse Ox 100 12/29/17 04:00 General appearance: no acute distress, alert Eyes: nonicteric ENT: oropharynx moist Neck: supple Effort: normal Auscultation: bilateral: wheezes, rales, rhonchi Cardiovascular: regular rate and rhythm Gastrointestinal: normoactive bowel sounds, soft, non-tender, non-distended Integumentary: normal Extremities: no cyanosis, no clubbing, pink and warm, pulses normal, edema (RUE 4+ pitting edema and weeping. Scrotal edema.) Musculoskeletal: no deformities normal mental status, non-focal exam, pupils equal and round mood appropriate Results - Laboratory Findings CBC and BMP: 12/29/17 04:50 12/29/17 04:50 ABG ABG pH 7.42 pH Units (7.32-7.45) 12/28/17 06:15 ABG pCO2 27 mmHg (35-45) L 12/28/17 06:15 ABG pO2 82 mmHg (85-104) L 12/28/17 06:15 ABG O2 Saturation 96 % (95-98) 12/28/17 06:15 PT/INR, D-dimer PT 11.2 Seconds (9.4-12.1) 12/28/17 04:00 Abnormal lab findings: Abnormal lab results WBC 23.8 K/mcL (4.3-11.1) H 12/28/17 04:00 RBC 3.79 M/mcL (4.19-5.50) L 12/28/17 04:00 Hgb 10.7 g/dL (12.9-16.9) L 12/28/17 04:00 Hct 34.4 % (37.5-50.1) L 12/28/17 04:00 MCHC 31.1 g/dL (31.6-35.5) L 12/28/17 04:00 RDW 14.6 % (11.5-14.5) H 12/28/17 04:00 Plt Count 506 K/mcL (140-400) H 12/28/17 04:00 MPV 9.3 fL (9.4-12.4) L 12/28/17 04:00 Neutrophils # 21.5 K/mcL (1.6-8.9) H 12/28/17 04:00 Platelet Estimate Increased (Normal) H 12/28/17 04:00 [place] Cells 1+ (Not Present) A 12/28/17 04:00 APTT 24.0 Seconds (26.0-36.0) L 12/28/17 04:00 ABG pCO2 27 mmHg (35-45) L 12/28/17 06:15 ABG pO2 82 mmHg (85-104) L 12/28/17 06:15 ABG HCO3 17 mEq/L (21-27) L 12/28/17 06:15 ABG Total CO2 18 mEq/L (20-26) L 12/28/17 06:15 ABG Base Excess -6 mEq/L (-2 to 3) L 12/28/17 06:15 Chloride 113 mEq/L (98-107) H 12/28/17 04:00 Carbon Dioxide 20 mEq/L (23-29) L 12/28/17 04:00 BUN 39 mg/dL (8-23) H 12/28/17 04:00 Creatinine 1.70 mg/dL (0.70-1.30) H 12/28/17 04:00 Est GFR ( Amer) 48 (> 60) L 12/28/17 04:00 Est GFR (Non-Af Amer) 40 (> 60) L 12/28/17 04:00 Glucose 148 mg/dL (70-105) H 12/28/17 04:00 POC Glucose 110 (58-89) H 12/28/17 23:51 Calculated Osmolality 302 (280-300) H 12/28/17 04:00 Calcium 7.8 mg/dL (8.6-10.3) L 12/28/17 04:00 Phosphorus 5.5 mg/dL (2.7-4.5) H 12/28/17 05:50 Total Bilirubin 0.2 mg/dL (0.3-1.0) L 12/28/17 05:50 Alkaline Phosphatase 143 Units/L (34-104) H 12/28/17 05:50 Troponin I 0.90 ng/mL (< 0.04) H* 12/29/17 00:45 B-Natriuretic Peptide 318 pg/mL (Less than 100) H 12/28/17 04:00 Serum Total Protein 4.5 g/dL (6.4-8.9) L 12/28/17 05:50 Albumin < 1.5 g/dL (3.5-5.7) L 12/28/17 05:50 - Clinical Findings Intake & Output: Intake & Output 12/28/17 12/28/17 12/29/17 15:59 23:59 07:59 Intake Total 2520 / 2520 170 / 170 270 / 270 Output Total 0 / 0 0 / 0 10 Balance 2520 / 2520 170 / 170 260 / 260 Weight 78.8 kg 81.6 kg - VTE Documentation of Mechanical Device: Intermittent pneumatic compression device Consult Discharge Plan - Plan Referrals: NONE,PCP [Primary Care Provider] - <Herlinda Daley - Last Filed: 12/29/17 22:07> Date of Encounter: 12/29/17 Objective PUL Vital signs: Last Vital Signs Temp 98.4 F 12/29/17 15:00 Pulse 98 12/29/17 16:00 Resp 20 12/29/17 16:00 BP 107/55 12/29/17 16:00 Pulse Ox 100 12/29/17 16:00 Results - Laboratory Findings CBC and BMP: 12/29/17 09:38 12/29/17 04:50 ABG ABG pH 7.42 pH Units (7.32-7.45) 12/28/17 06:15 ABG pCO2 27 mmHg (35-45) L 12/28/17 06:15 ABG pO2 82 mmHg (85-104) L 12/28/17 06:15 ABG O2 Saturation 96 % (95-98) 12/28/17 06:15 PT/INR, D-dimer PT 11.2 Seconds (9.4-12.1) 12/28/17 04:00 Abnormal lab findings: Abnormal lab results WBC 15.5 K/mcL (4.3-11.1) H 12/29/17 09:38 RBC 2.78 M/mcL (4.19-5.50) L 12/29/17 09:38 Hgb 7.7 g/dL (12.9-16.9) L 12/29/17 09:38 Hct 25.2 % (37.5-50.1) L 12/29/17 09:38 MCH 27.7 pg (28.0-33.3) L 12/29/17 09:38 MCHC 30.6 g/dL (31.6-35.5) L 12/29/17 09:38 RDW 14.8 % (11.5-14.5) H 12/29/17 09:38 Neutrophils # 14.5 K/mcL (1.6-8.9) H 12/29/17 09:38 Lymphocytes # 0.3 K/mcL (0.6-4.6) L 12/29/17 09:38 Nucleated RBCs/100 WBC 0.1 /100 WBC (0) H 12/29/17 09:38 Reactive Lymphocytes Present (Not Present) A 12/29/17 04:50 Anisocytosis 1+ (Not Present) A 12/29/17 09:38 Microcytosis Present (Not Present) A 12/29/17 09:38 Spherocytes 1+ (Not Present) A 12/29/17 09:38 [place] Cells 1+ (Not Present) A 12/28/17 04:00 APTT 24.0 Seconds (26.0-36.0) L 12/28/17 04:00 ABG pCO2 27 mmHg (35-45) L 12/28/17 06:15 ABG pO2 82 mmHg (85-104) L 12/28/17 06:15 ABG HCO3 17 mEq/L (21-27) L 12/28/17 06:15 ABG Total CO2 18 mEq/L (20-26) L 12/28/17 06:15 ABG Base Excess -6 mEq/L (-2 to 3) L 12/28/17 06:15 Chloride 117 mEq/L (98-107) H 12/29/17 04:50 Carbon Dioxide 16 mEq/L (23-29) L 12/29/17 04:50 BUN 45 mg/dL (8-23) H 12/29/17 04:50 Creatinine 2.06 mg/dL (0.70-1.30) H 12/29/17 04:50 Est GFR ( Amer) 39 (> 60) L 12/29/17 04:50 Est GFR (Non-Af Amer) 32 (> 60) L 12/29/17 04:50 POC Glucose 110 (58-89) H 12/28/17 23:51 Calculated Osmolality 305 (280-300) H 12/29/17 04:50 Calcium 7.2 mg/dL (8.6-10.3) L 12/29/17 04:50 Phosphorus 5.5 mg/dL (2.7-4.5) H 12/28/17 05:50 Total Bilirubin 0.2 mg/dL (0.3-1.0) L 12/28/17 05:50 Alkaline Phosphatase 143 Units/L (34-104) H 12/28/17 05:50 Lactate Dehydrogenase 278 Units/L (140-271) H 12/29/17 09:38 Troponin I 1.18 ng/mL (< 0.04) H* 12/29/17 09:38 B-Natriuretic Peptide 318 pg/mL (Less than 100) H 12/28/17 04:00 Serum Total Protein 4.5 g/dL (6.4-8.9) L 12/28/17 05:50 Albumin < 1.5 g/dL (3.5-5.7) L 12/28/17 05:50 Urine Clarity Turbid (Clear) A 12/29/17 04:48 Ur Specific [place] 1.028 (1.010-1.025) H 12/29/17 04:48 Urine Protein >=300 mg/dL (Neg-Trace) H 12/29/17 04:48 Urine Glucose (UA) 250 mg/dL (Normal) H 12/29/17 04:48 Urine Blood Moderate (Negative) H 12/29/17 04:48 Urine Bilirubin Small (Negative) H 12/29/17 04:48 Ur Leukocyte Esterase Small (Negative) H 12/29/17 04:48 Urine Microscopic RBC 3-5 per hpf (0-3) H 12/29/17 04:48 Urine Microscopic WBC 50-100 per hpf (0-3) H 12/29/17 04:48 Ur Squamous Epith Cells Many per lpf (None-Few) H 12/29/17 04:48 Hyaline Casts Moderate per lpf (None-Few) H 12/29/17 04:48 - Clinical Findings Intake & Output: Intake & Output 12/29/17 12/29/17 12/29/17 07:59 15:59 23:59 Intake Total 270 / 270 Output Total 40 / 40 Balance 260 / 260 -40 / -40 Weight 81.6 kg - Attending Attestation I saw and evaluated this patient and my medical decision-making was reviewed with the Resident Physician. I agree with the documented findings, disposition and treatment plan as described except to the extent set forth below. We independently had [id number] contact with the patient. I spent 35 minutes of Critical Care time with this patient. It involved decision making of high complexity to assess, manipulate, and support vital organ system failure and/or to prevent further life threatening deterioration of the patient's condition. The time involved in the performance of separately reportable procedures was not counted toward critical care time. Patient seen and examined at bedside Labs, radiology, chart personally reviewed. Management was reviewed during multidisciplinary critical care rounds. CAN FEEDER:Patient conscious episodically confused encephalopathy probably due to sepsis Pulm: Patient has worsening right sided airspace disease more likely due to aspiration as he failed MBS in the month of october patient has very weak cough muscles and very weak bulbar muscles will do all the non-invasive measures , patient will have poor prognosis if gets invasive ventilation there is a high chance he wont be extubated needing tracheostomy , patient has poor nutrition with failure to thrive . Explained to the family the possibility difficulty to liberate from the ventilator according to family that wont align with his wishes , so it was agreed by her Daughter Margot to change the code status DNR CCA DNI Cards:Patient has bordeline blood pressure will try 500 ml bolus of LR if the urine output improves will try colloids tomorrow . FEN-GI: NPO , patient is failure to thrive will attempt parenteral nutrition if he is stuck on BIPAP if he comes off BIPAP will need a PEG tube will consult Speech later Renal: UOP labs reviewed sepsis induced OLGA , Nephrology following , no acute indications for dialysis will change to Vancomycin to linezolid for less nephrotoxicity ID:To continue broad spectrum antibiotics most likely source is pulmonary source Heme/Onc:Labs reviewed Endo: Glucose Monitored Integ/MSK: Skin Care per routine ICU Nursing Protocol to prevent ulcers. Lines: All lines examined without evidence of infection : Dispo: Patient is critically ill CODE:Full Code
[2017-12-29 04:59] LABS: Squamous Epithelial Cell,Urine Many per lpf (None-Few); WBC,Urine 50-100 per hpf (0-3)
[2017-12-29] MEDS ORDERED: Furosemide 40 MG/4 ML VIAL IVP ONE (05:04)
[2017-12-29 05:06] LABS: Basophils % 0.2 %; Hematocrit 26.8 % (37.5-50.1); Lymphocytes # 0.5 K/mcL (0.6-4.6); Lymphocytes % 2.4 %; Mean Corpuscular HGB Conc 31.3 g/dL (31.6-35.5); Mean Corpuscular Hemoglobin 28.2 pg (28.0-33.3); Mean Corpuscular Volume 89.9 fL (83.0-100.0); Mean Platelet Volume 9.5 fL (9.4-12.4); Monocytes % 2.4 %; Neutrophils # 17.6 K/mcL (1.6-8.9); Nucleated Red Blood Cells 0.1 /100 WBC (0); Platelet Count 263 K/mcL (140-400); Red Blood Count 2.98 M/mcL (4.19-5.50); Red Cell Distribution Width 14.8 % (11.5-14.5)
[2017-12-29 05:07] LABS: Bacteria,Urine Few per hpf (None-Few); Hyaline Casts,Urine Moderate per lpf (None-Few); Mucus,Urine Few (Few)
[2017-12-29] MEDS: *HR* Metoprolol 5 MG/5 ML VIAL IVP SCH ×4 (05:16→23:56)
[2017-12-29 05:18] LABS: Hemoglobin 8.4 g/dL (12.9-16.9); Monocytes # 0.5 K/mcL (0.0-1.3)
[2017-12-29 05:30] LABS: Calcium 7.2 mg/dL (8.6-10.3); Potassium 4.6 mEq/L (3.5-5.1)
[2017-12-29 05:55] LABS: Anisocytosis 1+ (Not Present); Platelet Estimate Normal (Normal); Reactive Lymphocytes Present (Not Present)
--- NOTE | 2017-12-29 06:03 | Event Note ---
Date of Encounter: 12/29/17 Time of Encounter: 05:44 Patient's troponin drawn at midnight elevated at 0.9. EKG at 01:37 interpreted as sinus rhythm with 1mm ST depression in V2, V3, V4 with T-wave inversion in V1 and V2. I discussed this with my attending. The though was demand ischemia secondary to the patient's SVT at appx 8pm. 4hr repeat troponin was ordered. Repeat troponin drawn at 4am showed increasing troponin at 1.32. EKG at 05:48 interpreted as sinus rhythm with 1mm ST depression in V3, V4, V5 with T-wave inversion in V1 and V2. I discussed this with my attending. The thought was demand ischemia secondary to patient's SVT at appx 8am. Held on heparin at this time due to patient's decrease in Hgb to 8.4 (10.7). 4hr repeat troponin ordered. Rectal aspirin given. Will consult cardiology. Will discus with the oncoming day team to make aware so they may continue to follow.
[2017-12-29] MEDS ORDERED: Aminoglycoside Consult 1 EACH MC ONE (08:04)
[2017-12-29] MEDS: Haloperidol Lactate 5 MG/ML VIAL IVP SCH ×2 (08:09→20:47)
[2017-12-29] MEDS: Pantoprazole 40 MG VIAL IVP SCH (08:09)
--- NOTE | 2017-12-29 09:19 | Cardiology Consult Note ---
Date of Encounter: 12/29/17 Time of Encounter: 09:11 Assessment and Plan (1) PSVT (paroxysmal supraventricular tachycardia) Current Visit: Yes Status: Acute PSVT noted overnight, currently sinus rhythm. Possibly related to general discomfort, respiratory insufficiency, etc. Hsitory of PAF. Previously deemed a poor coumadin candidate due to anemia, etc. Recommend resume BB and aspirin when PO. Continue supportive care for other issues. (2) NSTEMI (non-ST elevated myocardial infarction) Current Visit: No Status: Acute Elevated troponin overnight in the setting of respiratory insufficiency and PSVT. Currently, he denies chest discomfort. Long discussion with patient and called daughter by phone. Given somewhat chronically ill condition, A/CKD, and anemia - he does not represent an ideal patient for an aggressive strategy. We discussed LHC, but ultimately decided to proceed with medical therapy only. Repeat limited TTE. Recommend aspirin if Hg stabelizes. Probably should hold off heparin given 2 point drop in Hg overnight. Recommend statin, bb. All agreeable to this plan. Daughter will discuss code status, previously he was DNR CCA. She will also discuss possibly palliative care evaluation. Discussion w patient/family: The assessment and plan as outlined above was discussed with the patient and/or family members who expressed understanding and agreement. All questions were answered. Thank you for involving us in the care of your patient. Please call with any questions. History of Present Illness Consult date: 12/29/17 Requesting physician: Derrick Garcia Consult reason: SVT Chief complaint: Edema History of present illness: Mr. Grant is a 72 year old male who presented to the ER yesterday with concerns of facial edema. On examination, patient noted to have generalized edema elsewhere. Patient reported chest congestion, dyspnea. Per reports, he lives alone, but daughter checks on him frequently. Patient reportedly is cared for by a home health nurse. Reports, patient previously discharged after treatment for aspiration pneumonia. Troponin elevation noted. Comorbidities include diabetes, schizophrenia, and previous atrial fibrillation (aspirin, rate control). Of note, patient listed as DNR CCA last admission in 10/2017 L HC deferred due to possible CVA, anemia, multiple Morbidities. Patient/daughter agreed to a conservative strategy. Overnight, patient developed tachycardia. ECG reviewed, possible SVT noted. Currently, he is in sinus rhythm. Generally, he appears frail and chronically ill. He is currently on CPAP for respiratory support. Admission labs: CBC 23.8, currently 18.7. Hemoglobin 10.7, currently 8.4. Creatinine 1.7, currently 2.06. Troponins 0.06, 0.90, 1.32. Chest x-ray 12/28/2017: Chronically elevated right hemidiaphragm. Chronic right pleural effusion. Previous cardiac testing: TTE 10/10/2017: EF 55%. Basal inferior hypokinesis. Otherwise normal LV function. RVSP not well obtained. Trace pericardial effusion. No significant valvular dysfunction. Normal RV size and function. Past Med Surg Social Fam HX - Past Medical History Medical history: cancer, cirrhosis, diabetes, hyperlipidemia, hypertension, other Psychiatric history: schizophrenia - Past Surgical History Surgical History: other - Social History Smoking Status: Light tobacco smoker Smokeless Tobacco Status: No Alcohol use: none Drug use: none - Family History Mother Living Status: Hx Family Cancer: Yes (breast) Hx Family Neurologic Disorders: Yes (alzheimer/dementia) Father Living Status: Medications and Allergies Haloperidol 1 mg PO BID 10/10/17 [History] Aspirin Enteric Coated [Aspirin EC] 81 mg PO DAILY #30 tablet. 10/15/17 [Rx] Ipratropium/Albuterol Neb [Duoneb] 3 ml IH [id number] #60 inhsol 10/15/17 [Rx] Metoprolol [Lopressor] 25 mg PO BID #60 tablet 10/15/17 [Rx] 3 Allergy/AdvReac Type Severity Reaction Status Date / Time No Known Allergies Allergy Verified 10/09/17 21:02 ROS unobtainable: due to mental status All Systems Review: A 10-system review of systems was performed and is negative for pertinent findings except as documented above in the HPI. - Cardiovascular Cardiovascular: as per HPI, dyspnea at rest, leg edema Physical Examination Vital Signs, Last 4 Hours Temp Pulse Resp BP Pulse Ox 12/29/17 08:17 98.2 F 12/29/17 08:00 87 12/29/17 07:45 19 125/69 96 12/29/17 07:00 85 17 125/69 97 12/29/17 06:00 98 22 113/76 93 General: Other (Chronically ill-appearing. Currently wearing CPAP. Tries to converse, but difficult to understand.) HEENT: Atraumatic, Normocephaly, Mucus Membranes Moist Neck: No JVD, Normal carotid pulses Cardiac: Other (Appears to be regular. No obvious murmurs.) Lungs: Other (Shallow) Neuro: Other (Seems confused.) Abdomen: Soft, Non-Tender Skin: Other (Bandages on feet. Frail-appearing.) Extremities: Other (General edema noted. Skin breakdown on right arm.) Results 12/29/17 04:50 12/29/17 04:50 Lab Results 12/28/17 12/29/17 12/29/17 11:38 00:45 04:50 WBC Hgb Hct Plt Count Sodium 142 Potassium 4.6 Chloride 117 H Carbon Dioxide 16 L BUN 45 H Creatinine 2.06 H Glucose 87 Calcium 7.2 L Troponin I 0.06 H* 0.90 H* 12/29/17 12/29/17 04:50 04:50 WBC 18.7 H Hgb 8.4 L D Hct 26.8 L Plt Count 263 Sodium Potassium Chloride Carbon Dioxide BUN Creatinine Glucose Calcium Troponin I 1.32 H* - Imaging and Cardiology Echo: report reviewed - EKG Interpretation EKG results cardiology: personally reviewed Consult Discharge Plan - Plan Referrals: NONE,PCP [Primary Care Provider] -
--- NOTE | 2017-12-29 09:31 | Nephrology Consult Note ---
Date of Encounter: 12/29/17 Time of Encounter: 09:29 Assessment and Plan (1) Acute kidney failure, unspecified Current Visit: Yes Status: Acute The patient has a clinical picture of oliguric acute kidney injury superimposed on stage III chronic kidney disease. His acute kidney injury is occurring in the setting of acute respiratory failure, recurrent aspiration pneumonia, hypotension, and sepsis. Patient has edema related to volume overload and also likely related to proteinuria and possible nephrotic syndrome. Many given 1 dose of Lasix to see if it can increase his urine output. Nephrotoxins need to be avoided. I would recommend discontinuing the vancomycin and providing gram- positive coverage with an antibiotic that is less nephrotoxic. We will continue to monitor the patient. Currently there is no acute indication for dialysis. Qualifiers: Acute renal failure type: unspecified Qualified Code(s): N17.9 - Acute kidney failure, unspecified (2) Chronic kidney disease, stage III (moderate) Current Visit: Yes Status: Acute (3) Proteinuria due to type 2 diabetes mellitus Current Visit: Yes Status: Acute (4) Aspiration pneumonia Current Visit: No Status: Acute Qualifiers: Aspiration pneumonia type: unspecified Laterality: right Lung location: lower lobe of lung Qualified Code(s): J69.0 - Pneumonitis due to inhalation of food and vomit (5) NSTEMI (non-ST elevated myocardial infarction) Current Visit: No Status: Acute History of Present Illness - History of Present Illness This is a 72-year-old male who was admitted with complaints of swelling shortness of breath dry cough and chest congestion. Patient has been diagnosed with recurrent aspiration pneumonia as well as acute respiratory failure. Currently he is on BiPAP to maintain oxygenation. On admission his creatinine was 1.70. Today is 2.06. The patient has been oliguric. He did receive some IV fluids at the time of admission but they have subsequently been stopped. Patient is unable to give much history. A Perez catheter is in place. Previous creatinines have ranged from 0.83-1.4 to during 2017. Patient was hospitalized in October 2017 was noted to have a creatinine of 2.2. At that time he was hospitalized with aspiration pneumonia hypoglycemia and an end STEMI. Patient has a history of diabetes. Previous urinalyses show that he has significant proteinuria greater than 300 mg/dL since at least June 2017. Past medical history is also pertinent for atrial fibrillation cirrhosis hypertension hyperlipidemia and schizophrenia. Currently the patient is resting comfortably on BiPAP. Vital signs are stable. Blood pressure 125/69 however initially blood pressure was as low as 85/70 according to the medical record. The patient is currently receiving antibiotics for his aspiration pneumonia. Antibiotics to include vancomycin. He has not required any vasopressors for blood pressure support. Past Med Surg Social Fam HX - Past Medical History Medical history: cancer, cirrhosis, diabetes, hyperlipidemia, hypertension, other Psychiatric history: schizophrenia - Past Surgical History Surgical History: other - Social History Smoking Status: Light tobacco smoker Smokeless Tobacco Status: No Alcohol use: none Drug use: none - Family History Mother Living Status: Hx Family Cancer: Yes (breast) Hx Family Neurologic Disorders: Yes (alzheimer/dementia) Father Living Status: Medications and Allergies Haloperidol 1 mg PO BID 10/10/17 [History] Aspirin Enteric Coated [Aspirin EC] 81 mg PO DAILY #30 tablet. 10/15/17 [Rx] Ipratropium/Albuterol Neb [Duoneb] 3 ml IH [id number] #60 inhsol 10/15/17 [Rx] Metoprolol [Lopressor] 25 mg PO BID #60 tablet 10/15/17 [Rx] 3 Allergy/AdvReac Type Severity Reaction Status Date / Time No Known Allergies Allergy Verified 10/09/17 21:02 Review of Systems ROS unobtainable: due to mental status Exam - Vital Signs Vital signs: Initial Vital Signs Temp Pulse Resp BP Pulse Ox 0 F L 0 22 0/0 98 12/28/17 02:04 12/28/17 02:04 12/28/17 02:04 12/28/17 02:04 12/28/17 02:04 Vital Signs - Last 8 Hours Temp Pulse Resp BP Pulse Ox 12/29/17 09:00 85 24 110/62 100 12/29/17 08:17 98.2 F 12/29/17 08:00 87 12/29/17 07:45 19 125/69 96 12/29/17 07:00 85 17 125/69 97 12/29/17 06:00 98 22 113/76 93 12/29/17 05:00 106 22 111/69 97 12/29/17 04:58 98.4 F 12/29/17 04:00 90 16 122/60 100 02/19/18 03:57 19 102/59 100 02/19/18 03:00 102 22 110/67 100 12/29/17 02:00 99 20 129/76 100 Intake and Output 12/28/17 12/29/17 12/29/17 23:59 07:59 15:59 Intake Total 170 / 170 270 / 270 Output Total 0 / 0 10 10 0 / 0 Balance 170 / 170 260 / 260 0 / 0 Intake: IV Fluids 170 / 170 270 / 270 Maxipime 2,000 MG In Water for inj. (sterile) 20 ML @ 300 mls/ hr IVPB Q8HR [facility] Rx#:[id number] Levaquin Premix 750mg/150 mL 150 / 150 750 mg In 150 ml @ 100 mls/hr IVPB DAILY@1800 [facility] Rx#: [id number] Vancocin 1,500 MG In 0.9 % 250 / 250 Sodium Chloride 250 ML @ 166.67 mls/hr IVPB Q24H [facility] Rx#: [id number] Output: Catheter 0 / 0 0 / 0 Other: Weight 81.6 kg Blood Glucose* 183 110 Patient Weight 12/29/17 23:59 Weight 81.6 kg - General Appearance Exam: Patient appears be resting comfortably on BiPAP. Temperature 98.2 blood pressure 125/69. Perez catheters in place with only small amount of urine in the collection bag. Patient is in no acute distress. Patient appears chronically ill. His feet are bandaged due to the presence of foot ulcers. Lungs exhibit coarse breath sounds and some rhonchi. Heart irregular rate and rhythm. Abdomen normal bowel sounds bruits masses, organomegaly or tenderness. Patient has 2+ lower extremity swelling. Results - Lab Results 12/29/17 04:50 12/29/17 04:50 Most recent lab results ABG pH 7.42 pH Units (7.32-7.45) 12/28/17 06:15 ABG pCO2 27 mmHg (35-45) L 12/28/17 06:15 ABG pO2 82 mmHg (85-104) L 12/28/17 06:15 ABG HCO3 17 mEq/L (21-27) L 12/28/17 06:15 ABG O2 Saturation 96 % (95-98) 12/28/17 06:15 Calcium 7.2 mg/dL (8.6-10.3) L 12/29/17 04:50 Phosphorus 5.5 mg/dL (2.7-4.5) H 12/28/17 05:50 Magnesium 1.9 mg/dL (1.6-2.6) 12/28/17 05:50 Consult Discharge Plan - Plan Referrals: NONE,PCP [Primary Care Provider] -
[2017-12-29] MEDS ORDERED: Furosemide 80 MG in 0.9 % Sodium Chloride 50 ML IVPB ONE (09:36)
[2017-12-29 09:54] LABS: Basophils % 0.1 %; Hematocrit 25.2 % (37.5-50.1); Hemoglobin 7.7 g/dL (12.9-16.9); Immature Granulocytes % 2.1 % (0-4); Lymphocytes # 0.3 K/mcL (0.6-4.6); Lymphocytes % 1.9 %; Mean Corpuscular HGB Conc 30.6 g/dL (31.6-35.5); Mean Corpuscular Hemoglobin 27.7 pg (28.0-33.3); Mean Corpuscular Volume 90.6 fL (83.0-100.0); Mean Platelet Volume 9.4 fL (9.4-12.4); Monocytes # 0.3 K/mcL (0.0-1.3); Monocytes % 2.2 %; Neutrophils # 14.5 K/mcL (1.6-8.9); Nucleated Red Blood Cells 0.1 /100 WBC (0); Platelet Count 248 K/mcL (140-400); Red Blood Count 2.78 M/mcL (4.19-5.50); Red Cell Distribution Width 14.8 % (11.5-14.5); Segmented Neutrophils % 93.7 %
[2017-12-29 10:37] LABS: Anisocytosis 1+ (Not Present); Microcytosis Present (Not Present); Platelet Estimate Normal (Normal)
[2017-12-29 10:38] LABS: Spherocytes 1+ (Not Present)
[2017-12-29] MEDS ORDERED: Lidocaine -MPF 1% 2 ML VIAL INFILT ONE (12:01)
[2017-12-29] MEDS ORDERED: Ringers Solution, Lactated 500 ML IVC ONE (13:20)
[2017-12-29] MEDS ORDERED: Ringers Solution, Lactated 1,000 ML ONE (13:35)
--- NOTE | 2017-12-29 13:51 | Event Note ---
Date of Encounter: 12/29/17 Time of Encounter: 13:40 Spoke with Daughter Margot over the phone and Son in law Sanjay since patient is on a chronic musculoskeletal decline with weak cough due to weak cough muscles he has signs of bulbar weakness with not strong of a gag reflex if he gets intubated with this poor cough and bulbar weakness he might not come out of the vent end up with tracheostomy which he doesnt want that if there is a chance of that . So it was decided by the family will do all the measures we are doing now with short of intubation and CPR so the Code status was changed to DNRCCA- DNI .
[2017-12-29] MEDS ORDERED: Levofloxacin 750 MG/150 ML 750 MG/150 ML BAG IVPB SCH (18:00)
[2017-12-29] MEDS: *HR* Dextrose 50 % in Water (Syg) 50 ML SYRINGE IVP PRN (18:04)
[2017-12-29] MEDS ORDERED: Cefepime HCl 2,000 MG in Water for inj. (sterile) 20 ML 20 ML IVPB SCH (20:00)
[2017-12-30 03:44] LABS: Basophils % 0.1 %; Hematocrit 23.1 % (37.5-50.1); Hemoglobin 7.4 g/dL (12.9-16.9); Immature Granulocytes % 2.3 % (0-4); Lymphocytes # 0.3 K/mcL (0.6-4.6); Lymphocytes % 2.1 %; Mean Corpuscular Hemoglobin 28.5 pg (28.0-33.3); Mean Corpuscular Volume 88.8 fL (83.0-100.0); Mean Platelet Volume 9.6 fL (9.4-12.4); Monocytes # 0.3 K/mcL (0.0-1.3); Monocytes % 2.1 %; Neutrophils # 14.9 K/mcL (1.6-8.9); Platelet Count 220 K/mcL (140-400); Red Cell Distribution Width 15.2 % (11.5-14.5); Segmented Neutrophils % 93.4 %
[2017-12-30 04:08] LABS: Platelet Estimate Normal (Normal)
[2017-12-30 04:15] LABS: Albumin 1.5 g/dL (3.5-5.7); Albumin/Globulin Ratio 0.5 (1.1-2.2); Bilirubin,Total 0.2 mg/dL (0.3-1.0); Calcium 7.1 mg/dL (8.6-10.3); Globulin 2.9 g/dL (2.4-3.5); Potassium 4.6 mEq/L (3.5-5.1); Total Protein 4.4 g/dL (6.4-8.9)
[2017-12-30] MEDS: Ipratropium/Albuterol Neb 3 ML IH SCH ×6 (04:22→23:56)
[2017-12-30] MEDS: *HR* Dextrose 50 % in Water (Syg) 50 ML SYRINGE IVP PRN (05:22)
[2017-12-30 05:27] LABS: ABG Base Excess -12 mEq/L (-2 to 3); ABG HCO3 13 mEq/L (21-27); ABG Oxygen Saturation 74 % (95-98); ABG PCO2 23 mmHg (35-45); ABG PH 7.37 pH Units (7.32-7.45); ABG PO2 39 mmHg (85-104); ABG TCO2 14 mEq/L (20-26)
[2017-12-30] MEDS: Insulin LISPRO 300 UNITS/3 ML VIAL SQ SCH ×4 (05:33→23:08)
[2017-12-30] MEDS: *HR* Metoprolol 5 MG/5 ML VIAL IVP SCH ×4 (05:34→23:09)
[2017-12-30] MEDS ORDERED: Amiodarone Premix 150 MG/100 ML BAG IVPB ONE ×2 (06:55→06:56)
[2017-12-30] MEDS ORDERED: Amiodarone Premix 360 MG/200 ML BAG IVC ONE ×2 (06:56)
--- NOTE | 2017-12-30 07:27 | Event Note ---
Date of Encounter: 12/30/17 Time of Encounter: 04:45 I was called to the bedside by the nurse who was concerned about the patient's mental status. He was not able to be aroused, and would only open his eyes and stare in the setting of deep painful stimuli. We got a stat blood glucose and ABG which showed BG 60, pH 7.36 with metabolic acidosis that was appropriately compensated. He then received half an amp of D50 and one amp of Bicarb, which made him only mildly more responsive. I attempted to contact the patient's family, however I was unable to do so. I was concerned that the patient may be squeezing with more force in his left hand, and decided to order a stat head CT which did not demonstrate any acute intracranial process. I was then able to speak with the patient's granddaughter, Viktoriya, and later his daughter, Margot. I explained thoroughly what I had found on exam, current labs, and the possible differential regarding the patient's mental status. I explained that the most probable cause of his altered status is metabolic derangement, and the daughter understood. She said that she would come to the hospital shortly to discuss further. The patient also converted to Afib RVR, but his BP would not tolerate his scheduled Lopressor push, so instead an amiodarone drip was initiated. Current status was signed out thoroughly to the day team, who understood and agreed to take over care.
--- NOTE | 2017-12-30 08:06 | Nephrology Progress Note ---
Date of Encounter: 12/30/17 Time of Encounter: 08:05 - Assessment and Plan (1) Acute kidney failure, unspecified Current Visit: Yes Status: Acute Patient has oliguric acute kidney injury in the setting respiratory failure, aspiration pneumonia, sepsis hypotension and atrial fibrillation. He has not responded to IV Lasix. Renal ultrasound is unremarkable. We will place him on a Lasix drip in hopes of increasing his urine output. Otherwise he only other alternative will be dialysis. Given the patient's multiple comorbid conditions and chronic illnesses dialysis may not be the best option. I did discuss this with the granddaughter who will discuss it with the rest of the family. Qualifiers: Acute renal failure type: unspecified Qualified Code(s): N17.9 - Acute kidney failure, unspecified (2) Chronic kidney disease, stage III (moderate) Current Visit: Yes Status: Acute (3) Proteinuria due to type 2 diabetes mellitus Current Visit: Yes Status: Acute (4) Aspiration pneumonia Current Visit: No Status: Acute Qualifiers: Aspiration pneumonia type: unspecified Laterality: right Lung location: lower lobe of lung Qualified Code(s): J69.0 - Pneumonitis due to inhalation of food and vomit (5) NSTEMI (non-ST elevated myocardial infarction) Current Visit: No Status: Acute Subjective Interval history: Events of last night of been reviewed. Patient appears to be less responsive. He still is requiring BiPAP. He remains oliguric despite several doses of IV Lasix yesterday. His azotemia continues to worsen. Objective - Vital Signs Vital signs: Vital Signs Temp Pulse Resp BP Pulse Ox 12/30/17 07:32 23 83/60 100 12/30/17 06:10 22 100 12/30/17 06:00 109 24 105/70 100 12/30/17 05:00 98 22 95/76 96 12/30/17 04:22 23 104/62 99 12/30/17 04:00 98 22 104/62 95 12/30/17 03:00 98.7 F 94 12/30/17 02:00 95 22 97/61 98 12/30/17 01:33 20 102/62 98 12/30/17 01:00 96 20 98/57 98 12/30/17 00:00 98.6 F 94 23 104/67 99 12/29/17 23:58 21 104/67 98 12/29/17 23:30 91 12/29/17 23:00 91 14 92/57 98 12/29/17 22:00 87 21 110/68 98 12/29/17 21:00 101 24 105/60 97 12/29/17 20:11 22 122/63 100 12/29/17 20:00 98.8 F 93 22 122/63 100 12/29/17 19:05 98.8 F 12/29/17 19:00 92 22 101/66 100 12/29/17 18:00 68 16 96/54 100 12/29/17 17:00 101 29 119/66 90 12/29/17 16:00 98 20 107/55 100 12/29/17 15:32 24 95/64 100 12/29/17 15:24 98 12/29/17 15:00 98.4 F 99 24 115/64 100 12/29/17 14:00 98 18 114/62 100 12/29/17 13:00 86 22 108/57 100 12/29/17 12:00 97.0 F L 87 18 117/57 100 12/29/17 11:00 97 18 116/67 100 12/29/17 10:00 90 19 130/73 100 12/29/17 09:00 85 24 110/62 100 12/29/17 08:17 98.2 F Intake and Output 12/29/17 12/30/17 12/30/17 23:59 07:59 15:59 Intake Total 1528 / 1528 Output Total 50 / 50 25 / 25 Balance 1478 / 1478 -25 / -25 Intake: IV Fluids 1528 / 1528 Lactated Ringers 500 ML @ 1000 500 / 500 mls/hr IVC .Q30M [facility] Rx#: [id number] Maxipime 2,000 MG In Water for inj. (sterile) 20 ML @ 300 mls/ hr IVPB Q8HR [facility] Rx#:[id number] Lasix 80 MG In 0.9 % Sodium 58 / 58 Chloride 50 ML @ 100 mls/hr IVPB ONCE [facility] Rx#:[id number] Zosyn 3.375 GM In 0.9 % Sodium 200 / 200 Chloride 100 ML @ 25 mls/hr IVPB Q8H [facility] Rx#:[id number] Output: Catheter 50 / 50 25 / 25 Urethral (Perez) 0 / 0 0 / 0 Other: Blood Glucose* 96 104 - General Appearance Exam: Patient is being maintained on BiPAP. Vital signs appear stable. Patient appears to be comfortable. Perez catheter is in place. Lungs coarse breath sounds with scattered rhonchi. Heart regular rate and rhythm. Abdomen is benign. There is 2-3+ lower extremity swelling. - Lab 12/30/17 03:32 12/30/17 03:32 Most recent lab results ABG pH 7.37 pH Units (7.32-7.45) 12/30/17 05:20 ABG pCO2 23 mmHg (35-45) L 12/30/17 05:20 ABG pO2 39 mmHg (85-104) L* 12/30/17 05:20 ABG HCO3 13 mEq/L (21-27) L 12/30/17 05:20 ABG O2 Saturation 74 % (95-98) L 12/30/17 05:20 Calcium 7.1 mg/dL (8.6-10.3) L 12/30/17 03:32 Phosphorus 5.5 mg/dL (2.7-4.5) H 12/28/17 05:50 Magnesium 1.9 mg/dL (1.6-2.6) 12/28/17 05:50 - VTE Documentation of Mechanical Device: Intermittent pneumatic compression device Consult Discharge Plan - Plan Referrals: NONE,PCP [Primary Care Provider] -
[2017-12-30] MEDS ORDERED: Furosemide 480 MG in D5% in Water 192 ML IVC SCH (08:15)
[2017-12-30] MEDS: Haloperidol Lactate 5 MG/ML VIAL IVP SCH ×2 (08:29→20:09)
[2017-12-30] MEDS: Pantoprazole 40 MG VIAL IVP SCH (08:30)
--- NOTE | 2017-12-30 08:35 | Pulmonology Progress Note ---
<Radha Fabian - Last Filed: 12/30/17 11:06> Date of Encounter: 12/30/17 Time of Encounter: 08:15 Assessment and Plan (1) Acute encephalopathy Current Visit: Yes Status: Acute Acute encephalopathy. Most likely metabolic in the setting of respiratory failure secondary to aspiration pneumonia, OLGA on CKD, NSTEMI, sepsis head CT negative U/A: +leuk est, negative nitrite plan continue to monitor not capable of MRI at this point due to clinical status family notified and will come today to discuss plan for duration of treatment. Very poor prognosis (2) Acute respiratory failure Current Visit: Yes Status: Acute acute respiratory failure secondary to RLL aspiration pneumonia CXR 12/28/2017 demonstrated increased right lung base consolidation compatible with pneumonia. Stable chronic b/l intersitial opacities likely fibrosis. chronic right pleural effusion. bipap 100% SPO2 ABG 12/30/2017: pH 7.37 CO2 23 O2 39 HCO3 13 plan continue bipap levaquin day 3 linezolid day 3 zosyn day 3 Qualifiers: Qualified Code(s): J96.01 - Acute respiratory failure with hypoxia (3) Sepsis Current Visit: Yes Status: Acute resolved sepsis secondary to RLL aspiration pneumonia CXR 12/28/2017 demonstrated increased right lung base consolidation compatible with pneumonia. Stable chronic b/l intersitial opacities likely fibrosis. chronic right pleural effusion. blood cultures negative plan levaquin day 3 linezolid day 3 zosyn day 3 Qualifiers: Qualified Code(s): A41.9 - Sepsis, unspecified organism (4) Aspiration pneumonia Current Visit: No Status: Acute RLL aspiration pneumonia CXR 12/28/2017 demonstrated increased right lung base consolidation compatible with pneumonia. Stable chronic b/l intersitial opacities likely fibrosis. chronic right pleural effusion. plan levaquin day 3 linezolid day 3 zosyn day 3 NPO Qualifiers: Aspiration pneumonia type: unspecified Laterality: right Lung location: lower lobe of lung Qualified Code(s): J69.0 - Pneumonitis due to inhalation of food and vomit (5) SVT (supraventricular tachycardia) Current Visit: Yes Status: Acute Spontaneously went into SVT. Narrow QRS. Patient was stable and alert. Refractory to amiodarone 6mg and 12mg IV rapid pushes. Converted to NSR with Lopressor 5mg IV. HR 106 continue amioderone (6) Acute on chronic kidney failure Current Visit: No Status: Resolved OLGA on stage 3 CKD Cr 2.47 worsening decreased urine output so IV lasix drip to hopefully promote urination plan nephrology following IV lasix drip avoid nephrotoxic agents strict I&O Qualifiers: Acute renal failure type: unspecified Chronic kidney disease stage: unspecified stage Qualified Code(s): N17.9 - Acute kidney failure, unspecified ; N18.9 - Chronic kidney disease, unspecified (7) Elevated troponin Current Visit: No Status: Acute troponin 1.64 in setting of new SVT and respiratory insufficiency Suspect this may be due to demand ischemia secondary to sepsis and respiratory failure patient has denied chest pain throughout stay cardiology consulted continue to monitor (8) Foot ulcer Current Visit: No Status: Acute Right lateral malleoli; stage IV. Left posterior heel; stage III. Bandages clean and dry. Wound care consulted Qualifiers: Laterality: unspecified laterality Non-pressure ulcer stage: unspecified non-pressure ulcer stage Qualified Code(s): L97.509 - Non-pressure chronic ulcer of other part of unspecified foot with unspecified severity (9) Sacral decubitus ulcer, stage II Current Visit: Yes Status: Acute Midline sacral decubitus ulcer; Stage II. Bandage clean and dry. Wound care consulted. (10) DVT prophylaxis Current Visit: No Status: Inactive EPCD Subjective Principal diagnosis: sepsis Interval history: 72 year old male who presented to the ER with concerns of facial edema and generalized edema. Patient reported chest congestion, dyspnea. Admitted for sepsis and acute respiratory failure secondary to aspiration pneumonia. He did spontaneously go into SVT (narrow QRS, stable). Currently, he is in sinus rhythm on amioderone. 12/30/2017: Developed acute encephalopathy. Most likely metabolic in the setting of respiratory failure secondary to aspiration pneumonia, OLGA on CKD, NSTEMI, sepsis head CT negative not capable of MRI at this point due to clinical status family notified and will come today to discuss plan for duration of treatment. Very poor prognosis Objective PUL Vital signs: Last Vital Signs Temp 98.3 F 12/30/17 08:16 Pulse 109 12/30/17 06:00 Resp 23 12/30/17 07:32 BP 83/60 12/30/17 07:32 Pulse Ox 100 12/30/17 07:32 General appearance: no acute distress, other (somulent) Eyes: nonicteric ENT: oropharynx moist Neck: supple Effort: mildly labored Auscultation: bilateral: diminished breath sounds, rales Cardiovascular: regular rate and rhythm Gastrointestinal: normoactive bowel sounds, soft Integumentary: decubitus ulcer (sacral and heel) Extremities: no cyanosis unable to assess due to mental status Results - Laboratory Findings CBC and BMP: 12/30/17 03:32 12/30/17 03:32 ABG ABG pH 7.37 pH Units (7.32-7.45) 12/30/17 05:20 ABG pCO2 23 mmHg (35-45) L 12/30/17 05:20 ABG pO2 39 mmHg (85-104) L* 12/30/17 05:20 ABG O2 Saturation 74 % (95-98) L 12/30/17 05:20 PT/INR, D-dimer PT 11.2 Seconds (9.4-12.1) 12/28/17 04:00 Abnormal lab findings: Abnormal lab results WBC 16.0 K/mcL (4.3-11.1) H 12/30/17 03:32 RBC 2.60 M/mcL (4.19-5.50) L 12/30/17 03:32 Hgb 7.4 g/dL (12.9-16.9) L 12/30/17 03:32 Hct 23.1 % (37.5-50.1) L 12/30/17 03:32 RDW 15.2 % (11.5-14.5) H 12/30/17 03:32 Neutrophils # 14.9 K/mcL (1.6-8.9) H 12/30/17 03:32 Lymphocytes # 0.3 K/mcL (0.6-4.6) L 12/30/17 03:32 Nucleated RBCs/100 WBC 0.1 /100 WBC (0) H 12/29/17 09:38 Reactive Lymphocytes Present (Not Present) A 12/29/17 04:50 Anisocytosis 1+ (Not Present) A 12/29/17 09:38 Microcytosis Present (Not Present) A 12/29/17 09:38 Spherocytes 1+ (Not Present) A 12/29/17 09:38 [place] Cells 1+ (Not Present) A 12/28/17 04:00 APTT 24.0 Seconds (26.0-36.0) L 12/28/17 04:00 ABG pCO2 23 mmHg (35-45) L 12/30/17 05:20 ABG pO2 39 mmHg (85-104) L* 12/30/17 05:20 ABG HCO3 13 mEq/L (21-27) L 12/30/17 05:20 ABG Total CO2 14 mEq/L (20-26) L 12/30/17 05:20 ABG O2 Saturation 74 % (95-98) L 12/30/17 05:20 ABG Base Excess -12 mEq/L (-2 to 3) L 12/30/17 05:20 Chloride 117 mEq/L (98-107) H 12/30/17 03:32 Carbon Dioxide 13 mEq/L (23-29) L 12/30/17 03:32 BUN 48 mg/dL (8-23) H 12/30/17 03:32 Creatinine 2.47 mg/dL (0.70-1.30) H 12/30/17 03:32 Est GFR ( Amer) 31 (> 60) L 12/30/17 03:32 Est GFR (Non-Af Amer) 26 (> 60) L 12/30/17 03:32 Glucose 60 mg/dL (70-105) L 12/30/17 03:32 Calculated Osmolality 304 (280-300) H 12/30/17 03:32 Calcium 7.1 mg/dL (8.6-10.3) L 12/30/17 03:32 Phosphorus 5.5 mg/dL (2.7-4.5) H 12/28/17 05:50 Total Bilirubin 0.2 mg/dL (0.3-1.0) L 12/30/17 03:32 Lactate Dehydrogenase 278 Units/L (140-271) H 12/29/17 09:38 Troponin I 1.64 ng/mL (< 0.04) H* 12/30/17 03:32 B-Natriuretic Peptide 318 pg/mL (Less than 100) H 12/28/17 04:00 Serum Total Protein 4.4 g/dL (6.4-8.9) L 12/30/17 03:32 Albumin 1.5 g/dL (3.5-5.7) L 12/30/17 03:32 Albumin/Globulin Ratio 0.5 (1.1-2.2) L 12/30/17 03:32 Urine Clarity Turbid (Clear) A 12/29/17 04:48 Ur Specific [place] 1.028 (1.010-1.025) H 12/29/17 04:48 Urine Protein >=300 mg/dL (Neg-Trace) H 12/29/17 04:48 Urine Glucose (UA) 250 mg/dL (Normal) H 12/29/17 04:48 Urine Blood Moderate (Negative) H 12/29/17 04:48 Urine Bilirubin Small (Negative) H 12/29/17 04:48 Ur Leukocyte Esterase Small (Negative) H 12/29/17 04:48 Urine Microscopic RBC 3-5 per hpf (0-3) H 12/29/17 04:48 Urine Microscopic WBC 50-100 per hpf (0-3) H 12/29/17 04:48 Ur Squamous Epith Cells Many per lpf (None-Few) H 12/29/17 04:48 Hyaline Casts Moderate per lpf (None-Few) H 12/29/17 04:48 - Microbiology Findings Microbiology Findings: Microbiology, Last 48 Hours 12/28/17 14:18 Blood Culture - Preliminary Peripheral Venipuncture No growth. 12/28/17 14:14 Blood Culture - Preliminary Peripheral Venipuncture No growth. - Clinical Findings Intake & Output: Intake & Output 12/29/17 12/30/17 12/30/17 23:59 07:59 15:59 Intake Total 1528 / 1528 Output Total 50 / 50 25 / 25 0 / 0 Balance 1478 / 1478 -25 / -25 0 / 0 - VTE Documentation of Mechanical Device: Intermittent pneumatic compression device Consult Discharge Plan - Plan Referrals: NONE,PCP [Primary Care Provider] - <Herlinda Daley - Last Filed: 12/30/17 23:14> Date of Encounter: 12/30/17 Objective PUL Vital signs: Last Vital Signs Temp 98.6 F 12/30/17 16:00 Pulse 85 12/30/17 18:00 Resp 29 12/30/17 18:00 BP 112/69 12/30/17 18:00 Pulse Ox 100 12/30/17 18:00 Results - Laboratory Findings CBC and BMP: 12/30/17 03:32 12/30/17 03:32 ABG ABG pH 7.37 pH Units (7.32-7.45) 12/30/17 05:20 ABG pCO2 23 mmHg (35-45) L 12/30/17 05:20 ABG pO2 39 mmHg (85-104) L* 12/30/17 05:20 ABG O2 Saturation 74 % (95-98) L 12/30/17 05:20 PT/INR, D-dimer PT 11.2 Seconds (9.4-12.1) 12/28/17 04:00 Abnormal lab findings: Abnormal lab results WBC 16.0 K/mcL (4.3-11.1) H 12/30/17 03:32 RBC 2.60 M/mcL (4.19-5.50) L 12/30/17 03:32 Hgb 7.4 g/dL (12.9-16.9) L 12/30/17 03:32 Hct 23.1 % (37.5-50.1) L 12/30/17 03:32 RDW 15.2 % (11.5-14.5) H 12/30/17 03:32 Neutrophils # 14.9 K/mcL (1.6-8.9) H 12/30/17 03:32 Lymphocytes # 0.3 K/mcL (0.6-4.6) L 12/30/17 03:32 Nucleated RBCs/100 WBC 0.1 /100 WBC (0) H 12/29/17 09:38 Reactive Lymphocytes Present (Not Present) A 12/29/17 04:50 Anisocytosis 1+ (Not Present) A 12/29/17 09:38 Microcytosis Present (Not Present) A 12/29/17 09:38 Spherocytes 1+ (Not Present) A 12/29/17 09:38 [place] Cells 1+ (Not Present) A 12/28/17 04:00 APTT 24.0 Seconds (26.0-36.0) L 12/28/17 04:00 ABG pCO2 23 mmHg (35-45) L 12/30/17 05:20 ABG pO2 39 mmHg (85-104) L* 12/30/17 05:20 ABG HCO3 13 mEq/L (21-27) L 12/30/17 05:20 ABG Total CO2 14 mEq/L (20-26) L 12/30/17 05:20 ABG O2 Saturation 74 % (95-98) L 12/30/17 05:20 ABG Base Excess -12 mEq/L (-2 to 3) L 12/30/17 05:20 Chloride 117 mEq/L (98-107) H 12/30/17 03:32 Carbon Dioxide 13 mEq/L (23-29) L 12/30/17 03:32 BUN 48 mg/dL (8-23) H 12/30/17 03:32 Creatinine 2.47 mg/dL (0.70-1.30) H 12/30/17 03:32 Est GFR ( Amer) 31 (> 60) L 12/30/17 03:32 Est GFR (Non-Af Amer) 26 (> 60) L 12/30/17 03:32 Glucose 60 mg/dL (70-105) L 12/30/17 03:32 Calculated Osmolality 304 (280-300) H 12/30/17 03:32 Calcium 7.1 mg/dL (8.6-10.3) L 12/30/17 03:32 Phosphorus 5.5 mg/dL (2.7-4.5) H 12/28/17 05:50 Total Bilirubin 0.2 mg/dL (0.3-1.0) L 12/30/17 03:32 Lactate Dehydrogenase 278 Units/L (140-271) H 12/29/17 09:38 Troponin I 1.64 ng/mL (< 0.04) H* 12/30/17 03:32 B-Natriuretic Peptide 318 pg/mL (Less than 100) H 12/28/17 04:00 Serum Total Protein 4.4 g/dL (6.4-8.9) L 12/30/17 03:32 Albumin 1.5 g/dL (3.5-5.7) L 12/30/17 03:32 Albumin/Globulin Ratio 0.5 (1.1-2.2) L 12/30/17 03:32 Urine Clarity Turbid (Clear) A 12/29/17 04:48 Ur Specific [place] 1.028 (1.010-1.025) H 12/29/17 04:48 Urine Protein >=300 mg/dL (Neg-Trace) H 12/29/17 04:48 Urine Glucose (UA) 250 mg/dL (Normal) H 12/29/17 04:48 Urine Blood Moderate (Negative) H 12/29/17 04:48 Urine Bilirubin Small (Negative) H 12/29/17 04:48 Ur Leukocyte Esterase Small (Negative) H 12/29/17 04:48 Urine Microscopic RBC 3-5 per hpf (0-3) H 12/29/17 04:48 Urine Microscopic WBC 50-100 per hpf (0-3) H 12/29/17 04:48 Ur Squamous Epith Cells Many per lpf (None-Few) H 12/29/17 04:48 Hyaline Casts Moderate per lpf (None-Few) H 12/29/17 04:48 - Microbiology Findings Microbiology Findings: Microbiology, Last 48 Hours 12/29/17 04:40 Urine Culture - Final Urine,Catheterized No growth. 12/28/17 14:18 Blood Culture - Preliminary Peripheral Venipuncture No growth. 12/28/17 14:14 Blood Culture - Preliminary Peripheral Venipuncture No growth. - Clinical Findings Intake & Output: Intake & Output 12/30/17 12/30/17 12/30/17 07:59 15:59 23:59 Intake Total 400 / 400 200 / 200 Output Total 25 / 25 0 / 0 50 / 50 Balance 375 / 375 200 / 200 -50 / -50 - Attending Attestation - Attending Attestation I saw and evaluated this patient and my medical decision-making was reviewed with the Resident Physician. I agree with the documented findings, disposition and treatment plan as described except to the extent set forth below. We independently had [id number] contact with the patient Patient seen and examined at bedside Labs, radiology, chart personally reviewed. Management was reviewed during multidisciplinary critical care rounds. [employer]:Patient is more lethargic and stuporous encephalopathy probably due to sepsis as CT head is negative there is no obvious metabolic abnormality . Pulm: Patient has worsening right sided airspace disease more likely due to aspiration as he failed MBS in the month of october patient has very weak cough muscles and very weak bulbar muscles will do all the non-invasive measures , patient will have poor prognosis if gets invasive ventilation there is a high chance he wont be extubated needing tracheostomy , patient has poor nutrition with failure to thrive . Explained to the family the possibility difficulty to liberate from the ventilator according to family that wont align with his wishes , so it was agreed by her Daughter Margot to change the code status DNR CCA DNI To continue antibitoics and BIPAP with mini breaks if he tolerates Cards:Patient has bordeline blood pressure will bolus as needed has afib with RVR on amiodarone , NSTEMI patient will be a poor candidate for intervention cardiology procedure FEN-GI: NPO , patient is failure to thrive will attempt parenteral nutrition if he is stuck on BIPAP if he comes off BIPAP will need a PEG tube will consult Speech later Renal: UOP labs reviewed sepsis induced OLGA , Nephrology following , no acute indications for dialysis to avoid nephrotoxic agents patient has overall poor prognosis dialysis is not going to fix it ID:To continue broad spectrum antibiotics most likely source is pulmonary source Heme/Onc:Labs reviewed Endo: Glucose Monitored Integ/MSK: Skin Care per routine ICU Nursing Protocol to prevent ulcers. Lines: All lines examined without evidence of infection : Dispo: Patient is critically ill CODE:[id number] -DNI update the daughter about new worsening encephalopathy
--- NOTE | 2017-12-30 11:35 | Cardiology Progress Note ---
Date of Encounter: 12/30/17 Time of Encounter: 11:32 Assessment and Plan (1) PSVT (paroxysmal supraventricular tachycardia) Current Visit: Yes Status: Acute PSVT noted overnight, currently sinus rhythm. Possibly related to general discomfort, respiratory insufficiency, etc. History of PAF. Previously deemed a poor coumadin candidate due to anemia, etc. Noted that amiodarone was started. Recommend resume BB and aspirin when PO. Continue supportive care for other issues. (2) NSTEMI (non-ST elevated myocardial infarction) Current Visit: No Status: Acute Elevated troponin overnight in the setting of respiratory insufficiency and PSVT. Possible NSTEMI. LV function is preserved. Case discussed with patient, daughter, and son-in-law. Given patient's generalized debility, multiple comorbidities, and frail status, I would favor a conservative strategy of medical therapy only. Patient and family agree with this decision. Patient has changed his CODE STATUS to DNR CCA. Ideally, start aspirin, statin, and beta lew therapy when able. Otherwise, no further cardiac testing appears to be appropriate at this time. Cardiology will sign off. Please call with any questions or concerns. Discussion w patient/family: The assessment and plan as outlined above was discussed with the patient and/or family members who expressed understanding and agreement. All questions were answered. Thank you for involving us in the care of your patient. Please call with any questions. Subjective Principal diagnosis: sepsis Interval history: Overall, condition largely unchanged. Periods of tachycardia noted, sinus tachyardia this AM. Remains on positive pressure ventilation. Case discussed with daughter yesterday, son-in-law this morning, and patient. All favor a conservative strategy. Objective Vital Signs, Last 4 Hours Temp Pulse Resp BP Pulse Ox 12/30/17 11:00 98.4 F 111 28 96/47 100 12/30/17 10:47 100 12/30/17 10:00 105 19 102/63 100 12/30/17 09:00 115 20 87/58 100 12/30/17 08:16 98.3 F 12/30/17 08:00 108 20 111/62 100 General: Other (Chronically ill-appearing.) HEENT: Atraumatic, Normocephaly, Mucus Membranes Moist Neck: Normal carotid pulses Cardiac: Reg Rate and Rhythm, Normal S1 and S2, No Murmur Lungs: Other (Shallow, poor effort) Neuro: Other Abdomen: Soft, Non-Tender Extremities: No Edema (Anasarca noted.), Other (Bandages on both feet.) Results 12/30/17 03:32 12/30/17 03:32 Lab Results 12/29/17 12/29/17 12/30/17 16:55 21:37 03:32 WBC Hgb Hct Plt Count Sodium Potassium Chloride Carbon Dioxide BUN Creatinine Glucose Calcium Total Bilirubin AST ALT Alkaline Phosphatase Troponin I 1.27 H* 1.22 H* 1.64 H* 12/30/17 12/30/17 03:32 03:32 WBC 16.0 H Hgb 7.4 L Hct 23.1 L Plt Count 220 Sodium 142 Potassium 4.6 Chloride 117 H Carbon Dioxide 13 L BUN 48 H Creatinine 2.47 H Glucose 60 L Calcium 7.1 L Total Bilirubin 0.2 L AST 37 ALT 13 Alkaline Phosphatase 99 Troponin I - VTE Documentation of Mechanical Device: Intermittent pneumatic compression device Consult Discharge Plan - Plan Referrals: NONE,PCP [Primary Care Provider] -
[2017-12-30] MEDS: Amiodarone Premix 360 MG/200 ML BAG IVC SCH (12:50)
[2017-12-30] MEDS ORDERED: 0.9 % Sodium Chloride 500 ML IVC ONE (20:57)
[2017-12-30] MEDS ORDERED: Norepinephrine 4 MG in D5% in Water 250 ML IVC SCH (21:00)
[2017-12-30] MEDS ORDERED: Albumin Human 5% 25.0 GM/500 ML VIAL ONE (21:10)
[2017-12-30 22:54] LABS: ABG Base Excess -16 mEq/L (-2 to 3); ABG HCO3 10 mEq/L (21-27); ABG Oxygen Saturation 81 % (95-98); ABG PCO2 23 mmHg (35-45); ABG PH 7.25 pH Units (7.32-7.45); ABG PO2 51 mmHg (85-104); ABG TCO2 11 mEq/L (20-26)
[2017-12-30 23:20] LABS: Calcium 7.5 mg/dL (8.6-10.3); Magnesium 1.9 mg/dL (1.6-2.6); Potassium 4.7 mEq/L (3.5-5.1)
[2017-12-31] MEDS: Amiodarone Premix 360 MG/200 ML BAG IVC SCH (00:18)
[2017-12-31] MEDS ORDERED: Amiodarone Premix 150 MG/100 ML BAG IVPB ONE ×2 (01:02→01:16)
[2017-12-31] MEDS ORDERED: Amiodarone Premix 360 MG/200 ML BAG IVC SCH (01:17)
--- NOTE | 2017-12-31 02:24 | Event Note ---
<Jose R Michelle - Last Filed: 12/31/17 05:19> Date of Encounter: 12/31/17 Time of Encounter: 02:16 I was called to bedside for patient at approximately 8:30 PM on 12/30/17 by nurse due to patient's hypotension and tachycardia. At that time his MAP was approximately 65, however it appeared to be continually dropping. At that time I did start the patient on levofed along with colloid fluid bolus, however as the blood pressure increased, the heart rate did decrease. I decided to make a change to dopamine from Levofed, and the patient quickly became very tachycardic alternating from A. fib with RVR to SVT. Additionally, he did have some runs of nonsustained V. tach. ABG did demonstrate the patient continues to become more acidotic and he is partially compensated with a CO2 of 23 and a bicarbonate of 11. I decided to give the patient on amp of bicarbonate at that time, and immediately called family to alert of variable cardiac status, spoke with Margot who is the patient's daughter. The patient's status did improve mildly over the next hour, however he began to enter episodes of sustained V. tach approximately an hour later. We were able to palpate a pulse, and cardiac activity was demonstrated on bedside ultrasound. Blood pressures remained low, and map did drop to approximately 40 at one point. At that time, I did give the patient an additional bolus of amiodarone and increase the amiodarone drip 1 mg/kg. Family did come to the bedside and confirmed that the patient would not want intubation at this time. We did explain that the patient's current hemodynamic status is extremely labile, and that intubation would be required to completely maintain her stabilize his condition, and that may not work either. They were informed that his prognosis is extremely poor and guarded at this time, and that he is at high risk to decompensate any time. They spoke with myself and Dr. Padgett at length about his current physiological status and determined that they would prefer to modify his CODE STATUS to DNR comfort care. 0518 - I spoke with the patient's family who has determined that they do not want to see the patient continue to suffer. It is their wish for the patient to discontinue BiPAP and Amiodarone drip. I explained again that I believe discontinued use of these measures would result in likely rapid decline and would lead to eventual . The family understands and confirms intent to discontinue care. I placed orders for PRN ativan for comfort care measures. <LylymaxinecaitlintracieAlphonso - Last Filed: 12/31/17 06:46> Date of Encounter: 12/31/[address] Michelle, patient's nurse, and family at length. Patient's daughter and grandaughters came in to the hospital and remained at bedside all night. After multiple discussions and continued decline in his status, family decided to withdraw support and to provide comfort measures only. I met with them again to confirm their wishes and his prior expressed wishes. They confirmed the decision to withdraw support and to provide comfort measures only. I agreed with their decision and with Dr. Michelle's comments above.
[2017-12-31 04:08] LABS: Hematocrit 22.4 % (37.5-50.1); Hemoglobin 7.1 g/dL (12.9-16.9); Mean Corpuscular HGB Conc 31.7 g/dL (31.6-35.5); Mean Corpuscular Hemoglobin 28.5 pg (28.0-33.3); Mean Platelet Volume 9.8 fL (9.4-12.4); Platelet Count 223 K/mcL (140-400); Red Blood Count 2.49 M/mcL (4.19-5.50); Red Cell Distribution Width 15.7 % (11.5-14.5)
[2017-12-31] MEDS: Ipratropium/Albuterol Neb 3 ML IH SCH ×2 (04:16→08:51)
[2017-12-31 04:19] VITALS: BP 95/55
[2017-12-31 04:21] LABS: Calcium 7.4 mg/dL (8.6-10.3); Potassium 4.8 mEq/L (3.5-5.1)
[2017-12-31 04:39] LABS: Lymphocytes # 0.8 K/mcL (0.6-4.6); Monocytes # 0.4 K/mcL (0.0-1.3); Neutrophils # 17.9 K/mcL (1.6-8.9); Platelet Estimate Normal (Normal)
[2017-12-31] MEDS ORDERED: *HR* LORazepam 2 MG/ML VIAL IVP ONE (05:18)
[2017-12-31] MEDS ORDERED: Atropine Sulfate 1% 40 DROP/2 ML BOTTLE SL PRN (05:18)
[2017-12-31] MEDS: Insulin LISPRO 300 UNITS/3 ML VIAL SQ SCH (05:22)
[2017-12-31] MEDS: *HR* Metoprolol 5 MG/5 ML VIAL IVP SCH (05:22)
[2017-12-31] MEDS: *HR* FentaNYL (PF) 100 MCG/2 ML VIAL IVP PRN (05:29)
[2017-12-31] MEDS ORDERED: *HR* FentaNYL (PF) 100 MCG/2 ML VIAL IVP ONE (06:14)
--- NOTE | 2017-12-31 06:41 | Death Note ---
<Jose R Michelle - Last Filed: 12/31/17 06:38> Discharge Sum: Summary - Date and Time Date of admission: 12/28/17 04:53 Date of : 12/31/17 Time of : 06:33 - Summary Details: The strategy is a 72-year-old gentleman who presented to the ED with concerns of facial edema and generalized edema. He also complained of chest congestion, dyspnea and was eventually admitted to the ICU for sepsis and acute respiratory failure secondary to aspiration pneumonia. He did experience SVT while in the ICU and required resumption of beta lew he also developed an elevated troponin along with acute on chronic kidney disease. Left heart catheterization was discussed by cardiology, however the patient and family refused this treatment at this time. He was continued on supportive care with antibiotics and BiPAP, however he developed a metabolic encephalopathy and became unresponsive several days into therapy. The patient was transitioned to DNR-cca-DNI code status and maintained for several days without any change in mental status. Over this last evening, the patient began to develop significant cardiovascular issues. He became acutely hypotensive, and required the addition of pressors. Levofed was intiated which resulted in improved BP but bradycardia. Patient was transitioned to Dopamine instead which resulted in SVT. All pressors were stopped, amiodarone was pushed with additional bolus and rate of drip was increased, and family was asked how they would like to proceed given that the patient would likely require intubation to maintain current status. They came to bedside, and all questions were answered. The patient's CODE STATUS was changed to DNR-cc. BiPAP was removed from the patient, and Amiodarone was discontinued. The patient's heart rate, BP, and RR slowly decreased and he eventually had cardiac arrest. Family remained at bedside. - Additional Data Confirmation of as documented by pronouncing clinician: no pulse, no respirations, no heart sounds, pupils fixed and dilated Family: at bedside Attending/PCP notified?: Yes Attending physician: Dr. Daley Was code activated?: No Autopsy requested?: No fur examiner notified?: No Organ bank notified?: No Advance directives: No Hospice patient?: No Discharge Sum: Diag - PCOD Probable Cause of : Respiratory arrest Discharge Sum: Prov - Provider Primary care physician: PCP NONE Admitting clinician: Joseph Sorto Attending physician on admission: Jaya Blanco Consults: 12/28/17 06:20 Consult to Wound Care [CONS] Routine Reason for Consult: Midline sacral decub stage 2. Right lateral malleoli ulcer stage IV. Left posterior heel ulcer stage III. Time Notified: 06:21 Call Completed: No 12/28/17 06:59 Consult to Pulmonology [CONS] Routine Consulting Provider: [facility] [place] Reason for Consult: respiratory failure Call Completed: Yes 12/29/17 06:00 Consult to Cardiology [CONS] Routine Comment: Consulting Provider: Cardiology [place] Reason for Consult: Troponin trending up (0.6/0.9/1.32) in setting of severe sepsis. Had run of SVT last night (8pm). EKG with 1mm ST depression in V3,4,5. Time Notified: 06:01 Call Completed: No 12/29/17 07:53 Consult to Invasive Line Access Team [CONS] Routine Reason for Consult: POssible TPN Line Type: PICC 12/29/17 07:54 Consult to Speech Therapy [CONS] Routine Comment: Evaluate, develop and implement POC Reason for Consult: Failed bedside eval Call Completed: No 12/29/17 08:31 Consult to Nephrology [CONS] Routine Consulting Provider: [facility] Reason for Consult: Decreased urine output this AM, increasing BUN/Creat (45/ 2.06) Call Completed: Yes 12/29/17 12:01 Consult to Invasive Line Access Team [CONS] Routine Reason for Consult: Picc Line Insertion Line Type: PICC 12/31/17 01:50 Consult to Palliative Care [CONS] Routine Comment: Consulting Provider: [facility]iative [facility] [place] Reason for Consult: DNR-cc, sepsis/aspiration pna, unresponsive and BiPAP dependent with metabolic acidosis Call Completed: No Pronouncing clinician: Jose R Michelle <Herlinda Daley - Last Filed: 12/31/17 18:59> Discharge Sum: Summary - Date and Time Date of admission: 12/28/17 04:53 - Summary Details: i agree with the resident documentation patient of sepsis with complication of NSTEMI . - Additional Data Attending physician: Jaya Blanco MD Discharge Sum: Prov - Provider Primary care physician: PCP NONE Consults: 12/28/17 06:20 Consult to Wound Care [CONS] Routine Reason for Consult: Midline sacral decub stage 2. Right lateral malleoli ulcer stage IV. Left posterior heel ulcer stage III. Time Notified: 06:21 Call Completed: No 12/28/17 06:59 Consult to Pulmonology [CONS] Routine Consulting Provider: [facility] [place] Reason for Consult: respiratory failure Call Completed: Yes 12/29/17 06:00 Consult to Cardiology [CONS] Routine Comment: Consulting Provider: Cardiology [place] Reason for Consult: Troponin trending up (0.6/0.9/1.32) in setting of severe sepsis. Had run of SVT last night (8pm). EKG with 1mm ST depression in V3,4,5. Time Notified: 06:01 Call Completed: No 12/29/17 07:53 Consult to Invasive Line Access Team [CONS] Routine Reason for Consult: POssible TPN Line Type: PICC 12/29/17 07:54 Consult to Speech Therapy [CONS] Routine Comment: Evaluate, develop and implement POC Reason for Consult: Failed bedside eval Call Completed: No 12/29/17 08:31 Consult to Nephrology [CONS] Routine Consulting Provider: [facility] [place] Reason for Consult: Decreased urine output this AM, increasing BUN/Creat (45/ 2.06) Call Completed: Yes 12/29/17 12:01 Consult to Invasive Line Access Team [CONS] Routine Reason for Consult: Picc Line Insertion Line Type: PICC 12/31/17 01:50 Consult to Palliative Care [CONS] Routine Comment: Consulting Provider: [facility] [place] Reason for Consult: DNR-cc, sepsis/aspiration pna, unresponsive and BiPAP dependent with metabolic acidosis Call Completed: No
--- NOTE | 2018-01-02 09:11 | Electrocardiograph Report ---
[place] [id number] Test Date: 2017-12-28 Pat Name: Marcus Grant Department: [id number] Room: 03 Gender: M [employer]: SIA : 1945 Requested By: Jaya Blanco Order Number: [id number] Reading MD: Rustam Diaz DO Measurements Intervals [place] Rate: 94 P: 38 VA: 118 QRS: 32 QRSD: 95 T: 25 QT: 365 QTc: 416 Interpretive Statements SINUS RHYTHM WITH SHORT VA INTERVAL LOW QRS VOLTAGE IN EXTREMITY LEADS MINIMAL ST DEPRESSION Electronically Signed On 01-02-2018 9:09:36 EST by Rustam Diaz DO
== END 2017-12-31 09:50 | disposition expired | DRG 871 ==
LOC: EMEROO 02:03 → ICNU 04:53
PROVIDERS: ADMIT Internal Medicine; ATTEND Internal Medicine